=== PATIENT | female | born 1945 | race Caucasian/White ===

== ENCOUNTER 2023-06-30 12:15 | Inpatient (IN) | payer MEDICARE, SELFPAY ==
[2023-06-30 12:15] VITALS: BP 166/78; PULSE 104; RESP 16; TEMP 36.2; O2SAT 96; BMI 26.4
[2023-06-30 12:20] VITALS: BP 166/78; PULSE 98; RESP 20; TEMP 36.2; O2SAT 97
--- NOTE | 2023-06-30 13:17 | EKG12_ITS ---
Test Reason : WEAKNESS Blood Pressure : / mmHG Vent. Rate : 098 BPM Atrial Rate : 000 BPM P-R Int : 000 ms QRS Dur : 074 ms QT Int : 346 ms P-R-T Axes : 000 002 065 degrees QTc Int : 441 ms Atrial fibrillation with premature ventricular or aberrantly conducted complexes Abnormal ECG Confirmed by SUNDEEP CALDERON, LAYO ([id number]), non linear editor WILLIAM ASENCIO ([id number]) on 07/01/2023 11:01:14 AM Referred By: Confirmed By:LAYO URBANO MD
--- NOTE | 2023-06-30 13:18 | EX.ED.DYSGE1 ---
HPI History of Present Illness Chief Complaint: Weakness Detail of Chief Complaint: Generalized weakness. Unable to stand. 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 Dementia, hypertension, chronic kidney disease. Patient's has passed. She lives at home with her son and [id number]. She normally can care for herself. Today she was in the bathroom sat on the toilet and was too weak to stand. He had to help her off the toilet said she had some confusion and they called the squad to bring her in. No recent illness. No recent falls or trauma. Prior similar symptoms: No Recent Illness/Hospitalization: No PFSH PFSH Medical History Aneurysm CHF (congestive heart failure) Dementia HTN (hypertension) Kidney failure Home Medications Cholestrol Med 03/10/15 [History Last Taken Unknown] Gout Med 03/10/15 [History Last Taken Unknown] Lasix 03/10/15 [History Last Taken Unknown] Lisinopril 03/10/15 [History Last Taken Unknown] Allergy/AdvReac Type Severity Reaction Status Date / Time No Known Allergies Allergy Verified 03/10/15 21:30 Surgical History History of hysterectomy Social History Smoking Status: Never smoker ROS ROS ED ROS Narrative Denies recent illness. Fever. No dysuria. Review of Systems ROS Unobtainable: Denies due to encephalopathy Constitutional Constitutional ED: Denies chills or fever(s) Eyes Eyes: Denies blurry vision ENT ENT ED: Denies ear pain Cardiovascular Cardiovascular: Denies chest pain or palpitations Respiratory/Chest Respiratory/Chest: Denies cough or dyspnea Gastrointestinal Gastrointestinal: Denies abdominal pain Genitourinary Genitourinary ED: Denies dysuria or hematuria Musculoskeletal Musculoskeletal: Denies arthralgias Integumentary Denies abscess Neurologic Neurologic: Denies headache(s) Psychiatric Psychiatric: Denies anxiety or depression Endocrine Endocrinology: Denies cold intolerance Hematologic/Lymphatic Hematologic/Lymphatic: Reports none Allergic/Immunologic Allergic/Immunologic ED: Denies mouth swelling or tongue swelling EXAM Physical Exam Narrative Exam Narrative: 8-year-old female no acute distress. Vital signs stable afebrile. Does not look septic or toxic. Son at bedside. Pulse ox 96% on room air no hypoxia. H EENT exam atraumatic. Pupils round reactive light. Normal speech. No facial droop. Dry mucous membranes. Neck nontender. Lungs clear to auscultation. Heart regular rhythm rate about 100. 4/6 systolic ejection murmur. Chest wall nontender. Abdomen soft nontender. No peritoneal signs. Moving all 4 extremities. Nontender. No edema. Neurologically she is awake and alert. Answering questions and following commands. Const Vital Signs: 06/30/23 12:15 06/30/23 12:20 06/30/23 12:21 Temperature 97.2 F L 97.2 F L Temperature Source Temporal Temporal Pulse Rate 104 H 98 Respiratory Rate 16 20 H Respiratory Effort Normal Non-Labored Respiratory Pattern Normal Blood Pressure 166/78 H 166/78 H Blood Pressure Mean 107 107 Pulse Ox 96 97 Oxygen Delivery Method Room Air Room Air 06/30/23 13:52 06/30/23 15:30 Temperature 97.5 F L Temperature Source Temporal Pulse Rate 74 94 Respiratory Rate 16 21 H Respiratory Effort Respiratory Pattern Blood Pressure 151/78 H 148/77 H Blood Pressure Mean 102 97 Pulse Ox 98 96 Oxygen Delivery Method Room Air Positive well nourished and well developed; Negative for cachectic, contractures or unkempt General Appearance ED: well developed and NAD; Negative for unkempt, cachectic, contractures, cyanotic, diaphoretic or pallor Nutritional Appearance: Negative for cachectic HEENT Reports dry mucous membranes; Denies moist mucous membranes Negative for trauma or tenderness Mouth ED: Yes dry mucous membranes Mouth: dry mucous membranes Eyes EOMs intact bilaterally General Eye ED: Negative for pale conjunctiva or scleral icterus Neck no lymphadenopathy, supple and no JVD General: Negative for tenderness Lymph Lymphatic: Negative for other Chest Wall inspection of chest normal and palpation of chest normal Chest: Negative for other Resp normal respiratory effort and clear to auscultation bilaterally Effort and Inspection: Negative for retractions Auscultation: Negative for rales, rhonchi or wheezes Cardio regular rhythm, S1 normal heart sound and S2 normal heart sound; Negative for no murmurs Rate: other Other Details: 4/6 systolic ejection murmur. GI normal to inspection, nondistended, normoactive bowel sounds, non-tender and non-distended Auscultation: normoactive bowel sounds Palpation: soft; Negative for tender or guarding Back/Spine no CVA tenderness General Back: Negative for CVA tenderness Cervical Spine: Negative for cervical spine tenderness Thoracic Spine / Upper Back: Negative for thoracic spinal tenderness or paraspinal muscle tenderness Extremity normal to inspection General Extremety ED: Negative for edema or tenderness General Extremity: Negative for edema Neuro oriented x3 and CN's II-XII intact bilaterally Sensorium / Orientation: alert; Negative for orientation impaired, lethargic or stuporous Motor Exam: strength 5/5 throughout Psych mental status grossly normal Appearance: Negative for unkempt Attitude: No agitated Mood & Affect: Negative for depressed, anxious or tearful Skin no rashes or lesions noted and no wounds General Skin Exam: Negative for elasticity normal, jaundice or pallor Lesions: No lesion noted Rashes: No rashes noted Trauma: Negative for abrasion Wounds: Negative for wounds noted MDM MDM MDM Narrative Medical decision making narrative: 78-year-old female with generalized weakness. Benign exam other than a what I suspect is a chronic heart murmur. Differential would include dehydration, infectious etiology such as pneumonia or UTI. Anemia etc. Screening labs and urinalysis will be obtained. Sinus concern for an intracranial bleed due to the prior history of ruptured aneurysm. Clinically I think it is very unlikely but I am obtaining CAT scan of the head. She has no chronic signs of stroke with no significant motor loss. Exam unchanged. Patient is too weak to ambulate. She may or may not have a UTI. Urine and blood cultures were sent. She has received a half a liter so far fluid. She also has a pancytopenia our most recent labs are 79 years old. CAT scan has been done I do not see any type of bleed. She does have prior coils from her aneurysms. Awaiting the formal radiology interpretation. I have already spoken to the hospitalist she will be a admission to medical floors. She was already started on IV Rocephin for her possible UTI. Discussed test results with family at bedside. They are comfortable with the plan. History & Record Review Discussion w/independent historian: Patient and Family Additional record(s) reviewed:: Prior inpatient record, Prior outpatient record, Prior ED visit and Prior labs Lab Data Attestation: I reviewed the patient's lab results. Lab results narrative: Count 2.2. H&H 9.3 and 31.6. Platelets 79,000. Consistent with a pancytopenia. Electrolytes show a gap of 7 BUN and creatinine are 36 and 1.6. Labs: Laboratory Results - last 24 hr 06/30/23 06/30/23 12:27 14:20 WBC 2.2 L RBC 3.70 L Hgb 9.3 L Hct 31.6 L MCV 85.4 MCH 25.1 L MCHC 29.4 L RDW Std Deviation 58.3 H RDW Coeff of Vahid 18.6 H Plt Count 79 L MPV 10.2 Immature Gran % (Auto) 0.500 Neut % (Auto) 66.1 Lymph % (Auto) 12.5 L [place] % (Auto) 20.4 H Eos % (Auto) 0.0 Baso % (Auto) 0.5 Absolute Neuts (auto) 1.4 L Absolute Lymphs (auto) 0.27 L Nucleated RBC % 0 Diff Path Review May foll Platelet Estimate MOD DEC Sodium 137 Potassium 3.9 Chloride 105 Carbon Dioxide 25.0 Anion Gap 7 BUN 36 H Creatinine 1.60 H Estim Creat Clear Calc 26.50 Est GFR (MDRD) Af Amer 40 L Est GFR (MDRD) Non-Af 33 L BUN/Creatinine Ratio 22.5 H Glucose 117 H Calcium 9.1 Urine Color Yellow Urine Clarity Sl. Cloudy Urine pH 7.0 Ur Specific [place] 1.005 Urine Protein 100 H Urine Glucose (UA) Normal Urine Ketones Negative Urine Occult Blood 250 H Urine Nitrite Positive H Urine Bilirubin Negative Urine Urobilinogen Normal Ur Leukocyte Esterase 500 H Urine RBC 0 SEEN Urine WBC 0-5 SEEN Ur Squamous Epith Cells 0-5 SEEN Urine Bacteria 1+ Urine Mucus 0 SEEN Radiography Diagnostic Testing: Clinical Impression(s) from Imaging Studies Chest X-Ray 06/30/23 14:00 IMPRESSION: Normal x-ray examination of the chest. Electronically Signed: Olayinka Moreira MD at 14:42 EDT , Discharge Plan Triage Chief Complaint: Weakness ED Provider: Kel Crooks Dx/Rx/DC Orders Clinical Impression: History of intracranial hemorrhage, Generalized weakness, Dementia, Pancytopenia, Acute UTI, Unable to ambulate Prescriptions: No Action Cholestrol Med Gout Med Lasix Lisinopril Primary Care Provider: Zeina Schmidt Referrals: Care Physician,No Primary [Non-Staff] - Disposition Disposition: Acute Care [facility]
[2023-06-30 13:44] LABS: Absolute Lymphocyte Count 0.27 X10^3/uL (0.83-4.51); Absolute Neutrophil Count 1.4 X10^3/uL (2.0-7.7); Basophil# 0.01 X10^3/uL; Basophil% 0.5 % (0-1); Hematocrit 31.6 % (37-47); Hemoglobin 9.3 g/dL (12.0-15.0); Lymphocyte # 0.27 X10^3/ul (0.83-4.51); Lymphocyte % 12.5 % (19-41); Mean Corp Hgb Conc 29.4 g/dL (32-36); Mean Corpuscular Hgb 25.1 pg (27.0-32.0); Mean Corpuscular Volume 85.4 fL (81-99); Mean Platelet Vol. 10.2 fl (6.2-12.0); Monocyte# 0.44 X10^3/uL; Monocyte% 20.4 % (0-10); NRBC Flagged by Analyzer 0 % (0-5); Neutrophil # 1.43 X10^3/uL (2.7-7.7); Neutrophil % 66.1 % (47-70); POSITIVE COUNT YES; POSITIVE DIFFERENTIAL YES; Platelet Count 79 K/mm3 (150-450); RBC Distribution Width CV 18.6 % (11.6-14.6); RBC Distribution Width SD 58.3 fl (35.1-43.9); White Blood Count 2.2 K/mm3 (4.4-11.0)
[2023-06-30 13:47] LABS: Differential Indicated SCAN CRITERIA MET
[2023-06-30 13:52] VITALS: BP 151/78; PULSE 74; RESP 16; TEMP 36.4; O2SAT 98
[2023-06-30] MEDS: 0.9% Normal Saline (1000mL) 1,000 ML 1000 ML IV (13:53)
[2023-06-30 13:54] LABS: Anion Gap 7 (5-15); BUN 36 mg/dL (7-18); BUN/Creat Ratio 22.5 RATIO (10-20); Calcium,Total 9.1 mg/dL (8.5-10.1); Chloride 105 mmol/L (98-107); EST Glomerular Filtration Rate 33 mL/min (>60); Est Glom Filt Rate - Afr Amer 40 mL/min (>60); Glucose 117 mg/dL (74-106); Potassium 3.9 mmol/L (3.5-5.1); Sodium Level 137 mmol/L (136-145)
--- NOTE | 2023-06-30 14:00 | RAD_ITS ---
STUDY: X-RAY CHEST REASON FOR EXAM: Female, 78 years old. weakness TECHNIQUE: Single AP portable view of the chest. COMPARISON: None. FINDINGS: The lungs are clear and expanded. There is no demonstrated pleural abnormality. Normal size heart. Normal mediastinum and segundo. Normal visualized pulmonary arteries. Normal visualized aortic arch and descending thoracic aorta. Normal visualized thoracic spine. Normal visualized ribs, clavicles, and shoulders. There is no demonstrated abnormality of the visualized soft tissue structures of the upper abdomen. RAD/Chest 1 View (Portable) IMPRESSION: Normal x-ray examination of the chest. Electronically Signed: Olayinka Moreira MD at 14:42 EDT ,
[2023-06-30 14:12] LABS: Platelet Estimate MOD DEC (ADEQ)
[2023-06-30 14:26] LABS: Mucous, Urine 0 SEEN /hpf (<or=2+); Red Blood Cells-Urine 0 SEEN /hpf (0-5)
[2023-06-30 14:27] LABS: Color, Urine Yellow (Yellow); Glucose, Dipstick Normal (Normal); Ketone-Dipstick Negative (Negative); Leukocyte Esterase-Dipstick 500 /ul (Negative); Nitrite-Dipstick Positive (Negative); Occult Blood-Urine 250 /ul (Negative); Protein-Dipstick 100 mg/dl (Negative); Specific Gravity, Urine 1.005 (1.002-1.030); Urine Bilirubin Dipstick Negative (Negative); Urine Clarity Sl. Cloudy (Clear); Urine Urobilinogen Normal (Normal)
[2023-06-30 14:37] LABS: Bacteria 1+ /hpf (None Seen); Squamous Epithelial Cells - UA 0-5 SEEN /hpf (5-10); White Blood Cells 0-5 SEEN /hpf (0-5)
[2023-06-30 15:30] VITALS: BP 148/77; PULSE 94; RESP 21; O2SAT 96
--- NOTE | 2023-06-30 15:56 | CT_ITS ---
STUDY: CT BRAIN WITHOUT CONTRAST REASON FOR EXAM: Female, 78 years old. confusion RADIATION DOSAGE (If Supplied By Facility): CTDIvol = ( 44.99 ) mGy, DLP = ( 846.73 ) mGycm TECHNIQUE: Transaxial CT imaging of the brain was performed without administration of intravenous contrast material. Individualized dose optimization techniques were used for this CT. COMPARISON: 03/10/2015. FINDINGS: Normal soft tissue structures. Normal calvarium. There is mild to moderate cerebral atrophy with widening of the extra-axial spaces and ventricular dilatation. There are areas of decreased attenuation within the white matter tracts of the supratentorial brain, consistent with microvascular disease changes. Normal basal ganglia and thalami. Normal brainstem. Normal cerebellum. Postoperative changes with aneurysmal clipping along the right side of the [place]. There is no intracranial hemorrhage. There are no findings of an acute ischemic infarction. Mucosal thickening involving the left maxillary sinus versus mucous retention cyst. Remainder of the paranasal sinuses are clear. CT/Brain/Head without Contrast IMPRESSION: Chronic changes as described. No acute intracranial hemorrhage or space-occupying lesion. Electronically Signed: Juliana Hu MD at 16:29 EDT ,
--- NOTE | 2023-06-30 16:20 | US_ITS ---
STUDY: RENAL ULTRASOUND - COMPLETE REASON FOR EXAM: Female, 78 years old. UTI/CKD TECHNIQUE: Ultrasound evaluation of the kidneys was performed with real-time and static [place]-scale imaging. COMPARISON: None. FINDINGS: RIGHT KIDNEY: Normal location of the right kidney, which is normal in size. The right kidney measures 9.5 cm. Increased echogenicity the renal cortex consistent with advanced age The renal cortex measures 1.2 cm. There is no right renal mass or cyst. There are no right renal calculi. There is no right hydronephrosis. DISTAL RIGHT URETER: There is non-visualization of the distal right ureter. There is no demonstrated right ureterovesical junction calculus. There is a visualized right ureteral jet. LEFT KIDNEY: Normal location of the left kidney, which is normal in size. The left kidney measures 9.2 cm. Increased echogenicity renal cortex consistent with the advanced age. The renal cortex measures 1.0 cm. 1.5 cm parapelvic cyst left kidney. There are no left renal calculi. There is no left hydronephrosis. DISTAL LEFT URETER: There is non-visualization of the distal left ureter. There is no demonstrated left ureterovesical junction calculus. There is a visualized left ureteral jet. BLADDER: The distended urinary bladder has a volume of 192 ml. The empty urinary bladder has a volume of ml. There is a normal wall thickness of the distended urinary bladder. There is no demonstrated mass within the urinary bladder. Some debris in the base of the bladder. US/Kidney and Bladder IMPRESSION: No hydronephrosis to suggest obstruction. Electronically Signed: Olayinka Moreira MD at 19:09 EDT ,
--- NOTE | 2023-06-30 16:21 | HP.PCM.HOS_ITS ---
HPI - General General Date of Admission: 06/30/23 Date of Service: 06/30/23 Chief Complaint: Generalized Weakness/Debility HPI Narrative JUAREZ CASTILLO, is a 78 F who presented the emergency department at [facility] on 06/30/2023 with generalized weakness and the inability to stand after sitting on the toilet. [facility] Medical History (Updated 06/30/23 @ 16:[address] Leatha Jerry DO) Aneurysm CHF (congestive heart failure) Dementia HTN (hypertension) Kidney failure Stage 3b chronic kidney disease Home Medications Cholestrol Med 03/10/15 [History Last Taken Unknown] Gout Med 03/10/15 [History Last Taken Unknown] Lasix 03/10/15 [History Last Taken Unknown] Lisinopril 03/10/15 [History Last Taken Unknown] Allergy/AdvReac Type Severity Reaction Status Date / Time No Known Allergies Allergy Verified 03/10/15 21:30 Surgical History History of hysterectomy Social History Smoking Status: Never smoker Vital Signs Vital Signs Vital Signs: 06/30/23 12:15 06/30/23 12:20 06/30/23 12:21 Temperature 97.2 F L 97.2 F L Temperature Source Temporal Temporal Pulse Rate 104 H 98 Respiratory Rate 16 20 H Respiratory Effort Normal Non-Labored Respiratory Pattern Normal Blood Pressure 166/78 H 166/78 H Blood Pressure Mean 107 107 Pulse Ox 96 97 Oxygen Delivery Method Room Air Room Air 06/30/23 13:52 06/30/23 15:30 Temperature 97.5 F L Temperature Source Temporal Pulse Rate 74 94 Respiratory Rate 16 21 H Respiratory Effort Respiratory Pattern Blood Pressure 151/78 H 148/77 H Blood Pressure Mean 102 97 Pulse Ox 98 96 Oxygen Delivery Method Room Air Weight Weight: 71.9 kg Body Mass Index (BMI) 26.4 Results Lab / Micro Data 06/30/23 12:27 06/30/23 12:27 Labs: Laboratory Results - last 24 hr 06/30/23 12:27: WBC 2.2 L, RBC 3.70 L, Hgb 9.3 L, Hct 31.6 L, MCV 85.4, MCH 25.1 L, MCHC 29.4 L, RDW Std Deviation 58.3 H, RDW Coeff of Vahid 18.6 H, Plt Count 79 L, MPV 10.2, Immature Gran % (Auto) 0.500, Neut % (Auto) 66.1, Lymph % (Auto) 12.5 L, Lane % (Auto) 20.4 H, Eos % (Auto) 0.0, Baso % (Auto) 0.5, Absolute Neuts (auto) 1.4 L, Absolute Lymphs (auto) 0.27 L, Nucleated RBC % 0, Diff Path Review January, Platelet Estimate MOD DEC, Sodium 137, Potassium 3.9, Chloride 105, Carbon Dioxide 25.0, Anion Gap 7, BUN 36 H, Creatinine 1.60 H, Estim Creat Clear Calc 26.50, Est GFR (MDRD) Af Amer 40 L, Est GFR (MDRD) Non-Af 33 L, BUN/Creatinine Ratio 22.5 H, Glucose 117 H, Calcium 9.1 06/30/23 14:20: Urine Color Yellow, Urine Clarity Sl. Cloudy, Urine pH 7.0, Ur Specific [place] 1.005, Urine Protein 100 H, Urine Glucose (UA) Normal, Urine Ketones Negative, Urine Occult Blood 250 H, Urine Nitrite Positive H, Urine Bilirubin Negative, Urine Urobilinogen Normal, Ur Leukocyte Esterase 500 H, Urine RBC 0 SEEN, Urine WBC 0-5 SEEN, Ur Squamous Epith Cells 0-5 SEEN, Urine Bacteria 1+, Urine Mucus 0 SEEN Micro: Microbiology 06/30/23 12:27 Nasal Secretion SARS-CoV-2 & FLU Antigen (Rapid) - Final Radiology Impression Chest X-Ray 06/30/23 14:00 IMPRESSION: Normal x-ray examination of the chest. Electronically Signed: Olayinka Moreira MD at 14:42 EDT , Assessment & Plan Assessment/Plan (1) UTI (urinary tract infection): (2) Generalized weakness: (3) Pancytopenia: (4) Toxic metabolic encephalopathy: Charges/Coding Visit Charges Inpatient E&M: 49918 Init Hosp L2
--- NOTE | 2023-06-30 16:21 | PCM.HP.STD ---
HPI - General General Date of Admission: 06/30/23 Date of Service: 06/30/23 Chief Complaint: Generalized Weakness/Debility HPI Narrative JUAREZ CASTILLO, is a 78 F who presented the emergency department at [facility] on 06/30/2023 with generalized weakness and the inability to stand after sitting on the toilet. Family had left by the time I evaluated her in the emergency department however they reported to the emergency department physician that she went to the bathroom and sat on the toilet but then was too weak to stand. Her son had to help her get off the toilet which is very atypical for her as typically she can basically care for herself. They also noted she was having some more confusion than her baseline so they called the squad to bring her in. They denied her having any recent illnesses sick contacts or falls or trauma. Evidently her recently. She tells me it was May 15 but was not able to remember the year and she is currently living with her son and [id number]. She herself denied any recent illnesses and stated she felt well until last evening when she began to feel weak. Other than that she was not able to give me much information however she denies any upper respiratory symptoms, cough, fever, or chills. Vital signs on presentation showed temperature of 97.2, initial heart rate was 104 but heart rate came down to upper 90s with some IV fluids, blood pressure was 166/78, respiratory rate was 16 and oxygen saturations were 96 to 98% on room air. CBC showed pancytopenia with a white count of 2.2, hemoglobin of 9.3 and a platelet count of 79,000. Her white count had not been abnormal on her most recent CBC at [facility] and was 4.2 at that time however she does have chronic anemia with a stable hemoglobin at 9.3. Her last platelet count was 153,000 however there is documented thrombocytopenia in her chart previously. The differential shows a monocytosis. Her chemistry panel was overall unremarkable. Electrolytes were normal. Her BUN was 36 and her serum creatinine was 1.6 however on previous lab work it appears that her BUN was 37 and serum creatinine is 1.67 so she is at her baseline. Lab work was otherwise unremarkable. Her UA is consistent with infection showing some protein, occult blood, nitrites, leuk esterase, and 1+ bacteria. There were interestingly no white cells seen at this time however the patient was having symptoms of frequency. Her EKG was unremarkable showing normal sinus rhythm with normal intervals. Chest x-ray was unremarkable. CT of the brain showed chronic changes from previous subarachnoid hemorrhage and intervention but with no acute intracranial hemorrhage or space-occupying lesion. In the emergency department she was treated with IV fluids and given IV ceftriaxone. Given her weakness and mild confusion at home request for admission was made. [facility] Medical History (Updated 06/30/23 @ 17:[address] Leatha Jerry DO) Aneurysm CHF (congestive heart failure) Dementia History of tobacco abuse History of uterine cancer HTN (hypertension) Hypothyroidism Iron deficiency anemia Seizures Stage 3b chronic kidney disease Subarachnoid hemorrhage Thrombocytopenia Urinary incontinence Vitamin D deficiency Home Medications Cholestrol Med 03/10/15 [History Last Taken Unknown] Gout Med 03/10/15 [History Last Taken Unknown] Lasix 03/10/15 [History Last Taken Unknown] Lisinopril 03/10/15 [History Last Taken Unknown] Allergy/AdvReac Type Severity Reaction Status Date / Time No Known Allergies Allergy Verified 03/10/15 21:30 Family History (Updated 06/30/23 @ 17:[address] Leatha Jerry DO) Other Cancer Diabetes Heart disease Surgical History History of hysterectomy Social History (Updated 06/30/23 @ 17:[address] Leatha Jerry DO) household members: family housing: house Smoking Status: Former smoker alcohol intake: never substance use type: does not use ROS Constitutional Constitutional: Reports fatigue and weakness; Denies anorexia, change in weight, chills, fever(s), malaise, night sweats or other Eyes Eyes: Denies blurry vision, change in eye color, change in vision, discharge from eye(s), double vision, erythema, eye pain, loss of vision or other ENT HEENT: Denies abnormal hearing, dysphagia, ear pain, epistaxis, headache(s), hearing loss, nasal congestion, nasal discharge, post nasal drip, sinus pressure, sore throat or other Cardiovascular Cardiovascular: Denies chest pain, claudication, dyspnea on exertion, edema, lightheadedness, orthopnea, palpitations, paroxysmal nocturnal dyspnea, rapid heart rate, syncope or other Respiratory/Chest Respiratory/Chest: Denies cough, dyspnea, excessive phlegm production, hemoptysis, productive cough, shortness of breath at rest, shortness of breath with exertion, wheezing or other Gastrointestinal Gastrointestinal: Denies abdominal pain, coffee ground emesis, constipation, diarrhea, dyspepsia, hematemesis, hematochezia, loose stools, melena, nausea, vomiting or other Genitourinary Genitourinary: Reports urinary frequency and urinary incontinence; Denies burning urination, difficulty urinating, dysuria, hematuria, nocturia, urinary hesitancy, urinary urgency or other Musculoskeletal Musculoskeletal: Denies arthralgias, back pain, joint pain, joint stiffness, joint swelling, myalgias, neck pain or other Neurologic Neurologic: Reports abnormal gait, confusion and other Details: Baseline memory impairment ; Denies abnormal speech, disequilibrium, dizziness, focal weakness, headache(s), numbness, paresthesias, seizure-like activity, seizures, syncope, tingling or tremor(s) Psychiatric Psychiatric: Denies anxiety, depression, homicidal ideation, suicidal ideation or other Endocrine Endocrinology: Denies change in body appearance, cold intolerance, excessive sweating, heat intolerance, polydipsia, polyuria or other Hematologic/Lymphatic Hematologic/Lymphatic: Denies anemia, easy bleeding, easy bruising, lymphadenopathy or other Allergic/Immunologic Allergic/Immunologic: Denies rhinitis, hives, eczemia, asthma or other Vital Signs Vital Signs Vital Signs: 06/30/23 12:15 06/30/23 12:20 06/30/23 12:21 Temperature 97.2 F L 97.2 F L Temperature Source Temporal Temporal Pulse Rate 104 H 98 Respiratory Rate 16 20 H Respiratory Effort Normal Non-Labored Respiratory Pattern Normal Blood Pressure 166/78 H 166/78 H Blood Pressure Mean 107 107 Pulse Ox 96 97 Oxygen Delivery Method Room Air Room Air 06/30/23 13:52 06/30/23 15:30 Temperature 97.5 F L Temperature Source Temporal Pulse Rate 74 94 Respiratory Rate 16 21 H Respiratory Effort Respiratory Pattern Blood Pressure 151/78 H 148/77 H Blood Pressure Mean 102 97 Pulse Ox 98 96 Oxygen Delivery Method Room Air Weight Weight: 71.9 kg Body Mass Index (BMI) 26.4 Physical Exam Const alert, no apparent distress, average body habitus and well nourished; Negative for healthy appearing Constitutional Narrative: Very pleasant, elderly, white female, appears older than stated age, sitting up in bed, appears comfortable and nontoxic ,Oriented to self but not place, month but not year General Appearance: cooperative HEENT normocephalic, head/scalp atraumatic and hearing grossly normal bilaterally; Negative for moist oral mucous membranes or dentition normal HEENT Narrative: Dentition is poor, mucous membranes are dry, Mallampati is 2, no thrush Eyes PERRL, EOMs intact bilaterally and conjunctivae normal Eyes Narrative: Mild conjunctival pallor bilaterally, no scleral icterus Neck no lymphadenopathy and supple Neck Narrative: Trachea midline, cardiac murmur that radiates to bilateral carotids Resp normal respiratory effort, no retractions, no use of accessory muscles and clear to auscultation bilaterally Resp Narrative: Diffusely diminished but clear Auscultation: Negative for rales, rhonchi or wheezes Cardio regular rate, regular rhythm, S1 normal heart sound, no rub, no gallops and no clicks; Negative for S2 normal heart sound or no murmurs Cardio Narrative: 3 out of 6 systolic murmur with soft S2 GI normal to inspection, nondistended, normoactive bowel sounds, soft to palpation and non-tender Extremity no clubbing, cyanosis or edema Extremity Narrative: Significant bilateral lower extremity onychomycosis with poor nail care Skin Skin Narrative: Feet and legs are extremely dry Neuro CN's II-XII intact bilaterally, moves all extremities and no focal motor deficits Neuro Narrative: Generalized weakness noted-proximal greater than distal but no focal deficits Sensorium / Orientation: awake, alert and oriented to person Speech: speech normal Psych affect normal Psych Narrative: Eye contact is good, patient interacts appropriately and is very pleasant Results Lab / Micro Data 06/30/23 12:27 06/30/23 12:27 Labs: Laboratory Results - last 24 hr 06/30/23 12:27: WBC 2.2 L, RBC 3.70 L, Hgb 9.3 L, Hct 31.6 L, MCV 85.4, MCH 25.1 L, MCHC 29.4 L, RDW Std Deviation 58.3 H, RDW Coeff of Vahid 18.6 H, Plt Count 79 L, MPV 10.2, Immature Gran % (Auto) 0.500, Neut % (Auto) 66.1, Lymph % (Auto) 12.5 L, [place] % (Auto) 20.4 H, Eos % (Auto) 0.0, Baso % (Auto) 0.5, Absolute Neuts (auto) 1.4 L, Absolute Lymphs (auto) 0.27 L, Nucleated RBC % 0, Diff Path Review May foll, Platelet Estimate MOD DEC, Sodium 137, Potassium 3.9, Chloride 105, Carbon Dioxide 25.0, Anion Gap 7, BUN 36 H, Creatinine 1.60 H, Estim Creat Clear Calc 26.50, Est GFR (MDRD) Af Amer 40 L, Est GFR (MDRD) Non-Af 33 L, BUN/Creatinine Ratio 22.5 H, Glucose 117 H, Calcium 9.1 06/30/23 14:20: Urine Color Yellow, Urine Clarity Sl. Cloudy, Urine pH 7.0, Ur Specific [place] 1.005, Urine Protein 100 H, Urine Glucose (UA) Normal, Urine Ketones Negative, Urine Occult Blood 250 H, Urine Nitrite Positive H, Urine Bilirubin Negative, Urine Urobilinogen Normal, Ur Leukocyte Esterase 500 H, Urine RBC 0 SEEN, Urine WBC 0-5 SEEN, Ur Squamous Epith Cells 0-5 SEEN, Urine Bacteria 1+, Urine Mucus 0 SEEN Micro: Microbiology 06/30/23 12:27 Nasal Secretion SARS-CoV-2 & FLU Antigen (Rapid) - Final Radiology Impression Chest X-Ray 06/30/23 14:00 IMPRESSION: Normal x-ray examination of the chest. Electronically Signed: Olayinka Moreira MD at 14:42 EDT Reading Location ID and State: [address] [place] [address] Tel , Service support , Assessment & Plan Assessment/Plan (1) UTI (urinary tract infection): (2) Generalized weakness: (3) Pancytopenia: (4) Toxic metabolic encephalopathy: PLAN: Plan Generalized weakness/debility -Etiology is currently unclear however I do suspect it may be related to possible UTI -Treat urinary tract infection -PT/OT consultation Urinary tract infection -UA is consistent with UTI -Patient is having urinary frequency without dysuria -Continue ceftriaxone 1 g daily -Urine culture is pending Pancytopenia -No previous documentation in [facility] that I can identify however it does look like she has chronic anemia and thrombocytopenia -Most recent CBC from a few months ago had her with a hemoglobin of 9.3 and a platelet count of 153,000 with a normal white count at 4.2 -Leukopenia could be related to infection -Differential does show a monocytosis -Repeat CBC in a.m. -We will check coags with regards to platelet count -Check iron studies and stool guaiac with regards to anemia -Patient had been on home iron previously from the note I found back in November 2022 we will hold for now Dementia with superimposed toxic/metabolic encephalopathy -Per family patient is a little bit off with regards to her mental status -Was oriented to self but not place, month but not year -We will treat underlying suspected UTI and continue to monitor -CT of the brain is unremarkable for any acute findings Hypothyroidism -Check TSH -There is history of noncompliance with Synthroid -Continue home Synthroid 25 mcg daily Hypertension -Hold home Lasix as patient does clinically appear somewhat dry -Continue amlodipine 5 mg daily -Continue losartan 50 mg daily CKD stage IIIb -Baseline serum creatinine appears to be between 1.6 and 1.7 -Serum creatinine on presentation was 1.6 -Clinically patient appears slightly dry so we will hydrate some -Hold home Lasix -Documented from previous note and PCP chart that her most recent echo showed an EF of 65% Hyperlipidemia -Continue home Lipitor Urinary incontinence -Continue home Ditropan 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 twice daily -We will continue Vimpat until able to ascertain correct home med reconciliation History of uterine cancer -No acute issues identified -Patient still has cervix History of tobacco abuse -Remote DVT prophylaxis -Subcu heparin twice daily CODE STATUS -Patient with dementia at baseline unable to fully question her with regards to this and no family at the bedside -We will remain full code but need to clarify if possible Charges/Coding Visit Charges Inpatient E&M: 66570 Init Hosp L2
[2023-06-30] MEDS: Ceftriaxone 1 GM/50 ML BAG IV (16:46)
[2023-06-30 16:52] VITALS: BP 143/69; PULSE 99; RESP 20; TEMP 37.5; O2SAT 97
[2023-06-30 16:53] LABS: Immature Platelet Fraction 3.7 % (1.0-7.9); Platelet Count 80 K/mm3 (150-450); RET-HE 26.1 pg (30-35); Reticulocyte Count 3.64 % (0.5-1.5)
[2023-06-30 16:55] LABS: International Normalized Ratio 1.1; Prothrombin Time (Protime)PT. 14.6 SECONDS (11.7-14.9)
[2023-06-30 17:10] LABS: Ferritin 129 ng/mL (8-252); Iron 16 ug/dL (50-170); Iron Binding Capacity,Total 226 ug/dL (250-450); PERCENT IRON SATURATION 7.1 % (15.0-55.0)
[2023-06-30 17:36] VITALS: BMI 25.7
[2023-06-30] MEDS: 0.9% Normal Saline (1000mL) 1,000 ML 70 ML IV (18:52)
[2023-06-30 20:33] VITALS: BP 145/73; PULSE 95; RESP 16; TEMP 37.3; O2SAT 99
[2023-06-30] MEDS: Petrolatum 33% Tube 1 APPLIC TOPICAL (22:59)
[2023-06-30] MEDS: Heparin Injection (Vial) 5,000 UNIT/ML VIAL 5000 UNIT SC (23:01)
[2023-06-30] MEDS: 0.9% Saline Lock 10 ML Syringe IV (23:01)
[2023-06-30] MEDS: Oxybutynin 5 MG Tablet PO (23:02)
[2023-06-30] MEDS: Atorvastatin Calcium 40 MG Tablet PO (23:02)
[2023-06-30] MEDS: Lacosamide 100 MG Tablet 200 MG PO (23:06)
[2023-07-01] VITALS (7 sets, daily range): BP systolic 121–168; BP diastolic 59–80; PULSE 73–82; RESP 16–20; TEMP 36.2–37.2; O2SAT 97–100
[2023-07-01] MEDS: Levothyroxine 25 MCG TABLET PO (06:13)
[2023-07-01 07:01] LABS: Absolute Lymphocyte Count 0.63 X10^3/uL (0.83-4.51); Absolute Neutrophil Count 1.2 X10^3/uL (2.0-7.7); Hematocrit 27.5 % (37-47); Hemoglobin 8.2 g/dL (12.0-15.0); Lymphocyte # 0.63 X10^3/ul (0.83-4.51); Lymphocyte % 26.1 % (19-41); Mean Corp Hgb Conc 29.8 g/dL (32-36); Mean Corpuscular Hgb 25.5 pg (27.0-32.0); Mean Corpuscular Volume 85.7 fL (81-99); Mean Platelet Vol. 8.9 fl (6.2-12.0); Monocyte# 0.62 X10^3/uL; Monocyte% 25.7 % (0-10); NRBC Flagged by Analyzer 0 % (0-5); Neutrophil # 1.15 X10^3/uL (2.7-7.7); Neutrophil % 47.8 % (47-70); POSITIVE COUNT YES; Platelet Count 55 K/mm3 (150-450); RBC Distribution Width CV 18.8 % (11.6-14.6); RBC Distribution Width SD 59.8 fl (35.1-43.9); Red Blood Count 3.21 M/mm3 (4.2-5.4); White Blood Count 2.4 K/mm3 (4.4-11.0)
[2023-07-01 07:41] LABS: ALB/GLOB Ratio 0.6 RATIO (0.9-2.4); AST(SGOT) 102 U/L (15-37); Alanine Aminotransfer ALT/SGPT 26 U/L (13-56); Albumin, Serum 2.7 g/dL (3.2-5.0); Alkaline Phosphatase 69 U/L (45-117); Anion Gap 7 (5-15); BUN 30 mg/dL (7-18); BUN/Creat Ratio 21.9 RATIO (10-20); Chloride 109 mmol/L (98-107); Creatinine, Serum 1.37 mg/dL (0.55-1.02); EST Glomerular Filtration Rate 40 mL/min (>60); Est Glom Filt Rate - Afr Amer 48 mL/min (>60); Estimated Creatinine Clearance 30.94 ml/min; Globulin 4.3 g/dL (2.2-4.2); Glucose 106 mg/dL (74-106); Magnesium 2.2 mg/dL (1.6-2.6); Phosphorus 3.3 mg/dL (2.5-4.9); Potassium 3.8 mmol/L (3.5-5.1); Sodium Level 139 mmol/L (136-145); Thyroid Stim Hormone (TSH) 2.58 uIU/mL (0.358-3.74)
[2023-07-01] MEDS: Ceftriaxone 2 GM in 0.9% Normal Saline (50mL MB+) 50 ML IV (09:20)
[2023-07-01] MEDS: Losartan Potassium 50 MG Tablet PO (09:20)
[2023-07-01] MEDS: Petrolatum 33% Tube 1 APPLIC TOPICAL ×2 (09:21→21:03)
[2023-07-01] MEDS: Oxybutynin 5 MG Tablet PO ×2 (09:21→21:03)
[2023-07-01] MEDS: Ferrous Gluconate 324 MG Tablet PO (09:22)
[2023-07-01] MEDS: Heparin Injection (Vial) 5,000 UNIT/ML VIAL 5000 UNIT SC ×2 (09:22→21:04)
[2023-07-01] MEDS: Furosemide 20 MG Tablet PO (09:22)
[2023-07-01] MEDS: amLODIPine 5 MG Tablet PO (09:22)
[2023-07-01] MEDS: Potassium Chloride Oral Tablet 10 MEQ PO ×2 (09:22→16:23)
[2023-07-01] MEDS: Lacosamide 100 MG Tablet 200 MG PO ×2 (09:28→21:11)
--- NOTE | 2023-07-01 10:53 | PN.HOSP_ITS ---
Reason for Visit Reason for Visit: Generalized weakness and debility Subjective Subjective No issues overnight. Patient states that she ate well this morning and was getting cleaned up currently with director industrial nursing. Denies any complaints at this time. States that she is not urinating as frequently as she had been previously. Objective Data Objective Data Vital Signs: Vital Signs Temp Pulse Resp BP Pulse Ox O2 Del Method 98.1 F 73 16 121/80 H 100 Room Air 07/01/23 09:00 07/01/23 09:00 07/01/23 09:00 07/01/23 09:00 07/01/23 09:00 07/01/23 10:07 Oxygen Delivery Method Room Air Weight: 70.216 kg Body Mass Index (BMI) 25.7 Intake & Output: Intake and Output for Last 24 Hours 06/29/23 06/30/23 07/01/23 23:59 23:59 23:59 Intake Total 1300 / 1300 1350 / 1350 Output Total 200 / 200 Balance 1100 / 1100 1350 / 1350 Lab / Micro Data 07/01/23 06:53 07/01/23 06:53 Labs: Laboratory Results - last 24 hr 06/30/23 12:27: WBC 2.2 L, RBC 3.70 L, Hgb 9.3 L, Hct 31.6 L, MCV 85.4, MCH 25.1 L, MCHC 29.4 L, RDW Std Deviation 58.3 H, RDW Coeff of Vahid 18.6 H, Plt Count 79 L, MPV 10.2, Immature Gran % (Auto) 0.500, Neut % (Auto) 66.1, Lymph % (Auto) 12.5 L, [place] % (Auto) 20.4 H, Eos % (Auto) 0.0, Baso % (Auto) 0.5, Absolute Neuts (auto) 1.4 L, Absolute Lymphs (auto) 0.27 L, Nucleated RBC % 0, Diff Path Review May , Platelet Estimate MOD DEC, Immature Plt Fraction 3.7, Retic Count 3.64 H, Immature Retic Fraction 23.90 H, Retic Hgb Equivalent 26.1 L, PT 14.6, INR 1.1, Sodium 137, Potassium 3.9, Chloride 105, Carbon Dioxide 25.0, Anion Gap 7, BUN 36 H, Creatinine 1.60 H, Estim Creat Clear Calc 26.50, Est GFR (MDRD) Af Amer 40 L, Est GFR (MDRD) Non-Af 33 L, BUN/Creatinine Ratio 22.5 H, Glucose 117 H, Calcium 9.1, Iron 16 L, TIBC 226 L, Iron Saturation 7.1 L, Ferritin 129 06/30/23 14:20: Urine Color Yellow, Urine Clarity Sl. Cloudy, Urine pH 7.0, Ur Specific [place] 1.005, Urine Protein 100 H, Urine Glucose (UA) Normal, Urine Ketones Negative, Urine Occult Blood 250 H, Urine Nitrite Positive H, Urine Bili caruso Negative, Urine Urobilinogen Normal, Ur Leukocyte Esterase 500 H, Urine RBC 0 SEEN, Urine WBC 0-5 SEEN, Ur Squamous Epith Cells 0-5 SEEN, Urine Bacteria 1+, Urine Mucus 0 SEEN 07/01/23 06:53: WBC 2.4 L, RBC 3.21 L, Hgb 8.2 L, Hct 27.5 L, MCV 85.7, MCH 25.5 L, MCHC 29.8 L, RDW Std Deviation 59.8 H, RDW Coeff of Vahid 18.8 H, Plt Count 55 L, MPV 8.9, Immature Gran % (Auto) 0.400, Neut % (Auto) 47.8, Lymph % (Auto) 26.1, [place] % (Auto) 25.7 H, Eos % (Auto) 0.0, Baso % (Auto) 0.0, Absolute Neuts (auto) 1.2 L, Absolute Lymphs (auto) 0.63 L, Nucleated RBC % 0, Sodium 139, Po tassium 3.8, Chloride 109 H, Carbon Dioxide 23.0, Anion Gap 7, BUN 30 H, Creatinine 1.37 H, Estim Creat Clear Calc 30.94, Est GFR (MDRD) Af Amer 48 L, Est GFR (MDRD) Non-Af 40 L, BUN/Creatinine Ratio 21.9 H, Glucose 106, Calcium 8.0 L, Phosphorus 3.3, Magnesium 2.2, Total Bilirubin 0.60, AST 102 H, ALT 26, Alkaline Phosphatase 69, Total Protein 7.0, Albumin 2.7 L, Globulin 4.3 H, Albumin/Globulin Ratio 0.6 L, TSH 2.58 Micro: Microbiology 06/30/23 16:43 Blood Culture (Wb) - Anticubital Left Bacteria Detection (PCR) - Final Strep not Strep pneumo 06/30/23 16:43 Blood Culture (Wb) - Anticubital Left Blood Culture - Preliminary 06/30/23 12:27 Nasal Secretion SARS-CoV-2 & FLU Antigen (Rapid) - Final Radiography Diagnostic Testing: Radiology Impression Chest X-Ray 06/30/23 14:00 IMPRESSION: Normal x-ray examination of the chest. Electronically Signed: Olayinka Moreira MD at 14:42 EDT , Brain CT 06/30/23 15:56 IMPRESSION: Chronic changes as described. No acute intracranial hemorrhage or space-occupying lesion. Electronically Signed: Juliana Hu MD at 16:29 EDT , Renal Ultrasound 06/30/23 16:20 IMPRESSION: No hydronephrosis to suggest obstruction. Electronically Signed: Olayinka Moreira MD at 19:09 EDT , Physical Exam Const alert, no apparent distress, average body habitus and well nourished; Negative for healthy appearing Constitutional Narrative: Very pleasant, elderly, white female, appears older than stated age, sitting up in bed, appears comfortable and nontoxic , oriented to self and place but not month or year, director industrial nursing at the bedside helping her getting a bath General Appearance: cooperative HEENT normocephalic, head/scalp atraumatic, hearing grossly normal bilaterally and moist oral mucous membranes; Negative for dentition normal Eyes PERRL, EOMs intact bilaterally and conjunctivae normal Eyes Narrative: Mild conjunctiva pallor bilaterally, no scleral icterus Neck no lymphadenopathy and supple Neck Narrative: Trachea midline, no thyroid enlargement Resp normal respiratory effort, no retractions, no use of accessory muscles and clear to auscultation bilaterally Resp Narrative: Diffusely diminished but clear Auscultation: Negative for rales, rhonchi or wheezes Cardio regular rate, regular rhythm, S1 normal heart sound, no rub, no gallops and no clicks; Negative for S2 normal heart sound or no murmurs Cardio Narrative: 3 out of 6 systolic murmur with soft S2 GI normal to inspection, nondistended, normoactive bowel sounds, soft to palpation and non-tender Extremity no clubbing, cyanosis or edema Skin Skin Narrative: Severe onychomycosis bilateral lower extremities and skin on legs/feet is exceedingly dry Neuro CN's II-XII intact bilaterally, moves all extremities and no focal motor defic its Neuro Narrative: Generalized weakness noted-proximal greater than distal but no focal deficits Sensorium / Orientation: awake, alert, oriented to person and oriented to place Speech: speech normal Psych affect normal Psych Narrative: Eye contact is good, patient interacts appropriately and is very pleasant Assessment & Plan Assessment/Plan (1) UTI (urinary tract infection): (2) Generalized weakness: (3) Pancytopenia: (4) Toxic metabolic encephalopathy: (5) Bacteremia due to Streptococcus: PLAN: Plan Generalized weakness/debility -Etiology is currently unclear however I do suspect it may be related to possible UTI -Treat urinary tract infection -PT/OT consultation are pending Urinary tract infection -UA is consistent with UTI -Patient is having urinary frequency without dysuria -Continue ceftriaxone 1 g daily -Urine culture is pending Strep bacteremia 2 of 2 blood cultures are positive for strep species but not strep pneumo -We will continue ceftriaxone but increase dose to 2 g daily as patient is clinically improving -Await finalized cultures and sensitivities -Repeat blood cultures tomorrow -Patient has what sounds to be like an aortic stenosis murmur--> we will check echocardiogram given strep bacteremia -Patient does have pretty poor dentition and it may be related to this depending on pathogen identified -Await full identification and sensitivities and will likely consult infectious disease tomorrow Pancytopenia -No previous documentation in [facility] that I can identify however it does look like she has chronic anemia and thrombocytopenia -Most recent CBC from a few months ago had her with a hemoglobin of 9.3 and a platelet count of 153,000 with a normal white count at 4.2 -Leukopenia could be related to infection and is slowly trending up -Differential does show a monocytosis -Repeat CBC in a.m. -Coags are normal -Platelet count is down a bit further today at 55,000--> okay to continue DVT prophylaxis but will hold if drops below 50,000 -Suspect related to acute infection -Iron studies are consistent with anemia of chronic disease -Patient had been on home iron previously from the note I found back in November 2022 we will hold for now Dementia with superimposed toxic/metabolic encephalopathy -Per family patient is a little bit off with regards to her mental status -Was oriented to self but not place, month but not year -We will treat underlying suspected UTI and continue to monitor -CT of the brain is unremarkable for any acute findings Hypothyroidism -TSH is within normal limits -Continue home Synthroid 25 mcg daily Hypertension -We will continue to hold home Lasix for now -Blood pressures appear to be fairly well controlled without diuretic therapy -Continue amlodipine 5 mg daily -Continue losartan 50 mg daily CKD stage IIIb -Baseline serum creatinine appears to be between 1.6 and 1.7 -Serum creatinine on presentation was 1.6 but now renal function is to 1.37 with some gentle hydration and withholding her diuresis -No further IV fluids at this time -Continue to hold home Lasix -Documented from previous note and PCP chart that her most recent echo showed an EF of 65% -Repeat echo is pending due to cardiac murmur and strep bacteremia Hyperlipidemia -Continue home Lipitor Urinary incontinence -Continue home Ditropan 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 twice daily -We will continue Vimpat until able to ascertain correct home med reconciliation History of uterine cancer -No acute issues identified -Patient still has cervix History of tobacco abuse -Remote DVT prophylaxis -Subcu heparin twice daily CODE STATUS -Patient with dementia at baseline unable to fully question her with regards to this and no family at the bedside -We will remain full code but need to clarify if possible Charges/Coding Visit Charges Inpatient E&M: 19734 [facility] Hosp L3
--- NOTE | 2023-07-01 10:55 | ECHOD_ITS ---
Reason For Study: Strep Bacteremia with Murmur Procedure This was a 2D Doppler, Color Flow transthoracic echocardiogram. Exam performed portable in patient room. Left Ventricle Normal LV size. Left ventricular systolic function is normal. The estimated ejection fraction is 60 %. No regional wall motion abnormalities noted. Right Ventricle Normal RV size. Normal systolic function. Atria The left atrium is mildly enlarged. Normal right atrium. Mitral Valve Mild focal mitral valve calcification. Mild-Moderate (1-2+) eccentric mitral valve insufficiency. Tricuspid Valve Normal tricuspid valve. Mild (1+) tricuspid valve insufficiency. Pulmonary artery systolic pressure is 30 mmHg. Aortic Valve Mild focal aortic valve calcification. Peak aortic valve gradient 51 mmHg. Mean aortic valve gradient 32 mmHg. Moderate aortic stenosis. Mild (1+) aortic valve insufficiency. Great Vessels Normal aortic root. Pericardium/Pleural No pericardial effusion. MMode/2D Measurements & Calculations LVIDd: 4.9 cm IVSd: 0.92 cm LVOT diam: 2.1 cm LVIDs: 3.4 cm LVPWd: 0.85 cm LVOT area: 3.5 cm2 RVDd: 3.2 cm FS: 31.9 % Ao root diam: 3.7 cm LAV(MOD-bp): 85.7 ml LVAd ap4: 26.5 cm2 LAV(MOD-bp) Indexed: 49.7 ml/m2 LVLd ap4: 7.3 cm LAV(MOD-sp2): 92.9 ml EDV(MOD-sp4): 78.9 ml LAV(MOD-sp4): 80.3 ml EDV(sp4-el): 81.7 ml LVAs ap4: 14.2 cm2 LVLs ap4: 6.0 cm ESV(MOD-sp4): 28.6 ml ESV(sp4-el): 28.6 ml EF(MOD-sp4): 63.7 % EF(sp4-el): 65.0 % SV(MOD-sp4): 50.3 ml SV(sp4-el): 53.1 ml LA A4 area: 23.9 cm2 LA dimension(2D): 4.1 cm RA A4 area: 12.0 cm2 TAPSE: 2.3 cm Time Measurements MV dec time: 0.24 sec Doppler Measurements & Calculations MV E max carlos: 134.4 cm/sec Lat Peak E' Carlos: 5.4 cm/sec Med Peak E' Carlos: 6.5 cm/sec MV A max carlos: 119.4 cm/sec E/E' lat: 24.9 E/E' med: 20.8 MV E/A: 1.1 MV V2 max: 133.3 cm/sec Ao V2 max: 358.1 cm/sec MV max P.1 mmHg MV dec slope: 559.3 cm/sec2 Ao max P.4 mmHg MV V2 mean: 93.4 cm/sec Ao V2 mean: 272.2 cm/sec MV mean P.8 mmHg Ao mean P.9 mmHg MV V2 VTI: 49.7 cm Ao V2 VTI: 86.8 cm AV (velocity ratio): 0.29 MVA(VTI): 1.8 cm2 MEHUL(I,D): 1.0 cm2 MEHUL(V,D): 1.1 cm2 AI max carlos: 429.6 cm/sec LV V1 max: 112.0 cm/sec SV(LVOT): 89.9 ml AI max P.8 mmHg LV V1 max P.0 mmHg AI dec slope: 295.0 cm/sec2 LV V1 mean P.0 mmHg AI P1/2t: 426.6 msec LV V1 mean: 82.5 cm/sec LV V1 VTI: 25.5 cm PA V2 max: 101.6 cm/sec TR max carlos: 253.9 cm/sec TR max P.8 mmHg ECHO/Echo Complete Interpretation Summary Normal LV size. Left ventricular systolic function is normal. The estimated ejection fraction is 60 %. The left atrium is mildly enlarged. Mean aortic valve gradient 32 mmHg. Moderate aortic stenosis. Ordering Physician: Leatha Jerry Referring Physician: Zeina Schmidt Performed By: Araceli Porter, CARLOS, RVT
--- NOTE | 2023-07-01 11:13 | CASEMGMT ---
Social Work SW?to room to meet with patient for initial transition planning/care coordination?assessment.?Pt sleepy with difficulty staying awake. Pt's son is present and agreeable to assessment. SW?introduced self and role at [facility].? Care providers, pharmacy, and demographics verified. PCP: [facility] Specialists: Pt's son states all physicians are through the [facility] and Dr. Schmidt coordinates. He is unable to states names of specialists. Preferred Pharmacy: [facility] Insurance: Medicare Living Will/HPOA:?Pt able to state that she has not completed a living will or health care POA. SW explained documents to pt and son and provided with a Advance Directive Rack Card in the event pt would like to complete documents. Due to lethargy and mild confusion Pt is not appropriate to compete documents at this time. LNOK: Son, Zurdo Daniels Living Arrangements: Pt's spouse 2 years ago and pt then moved in with her son Zurdo and his . Pt's home has a ramp entrance and first floor set up. Pt is able to complete her own ADLs. Her daughter in law helps pt get in and out of the shower but pt is able to bathe herself. Son and dgt in law assist with cooking, cleaning, medication management and finances. Pt does have 24 hour supervision from her family. Transportation:?Pt's son and daughter in law provide transportation. DME: ? walker, cane, shower chair, high rise toilet with hand rails. HHC/SNF: previously at [facility] for short term rehab. No history of home health or services through [facility]. PLAN: Pt to be evaluated by therapy. Discharge plan is dependent on pt's functional ability. Home with home health services or short term rehab in SNF were discussed with pt and son. A list of SNF providers including quality and resource use data and consistent with the patient?s preferred geographic region, medical needs, and insurance network were provided from the [facility]Port Guide. Pt's son states that if pt does need SNF, his preferred provider [facility]. SW will continue to follow for discharge planning. NI Martinez
[2023-07-01 13:40] LABS: Pathologist Review Reviewed
--- NOTE | 2023-07-01 14:02 | CHAPLAIN ---
Type of Pastoral Visit _x__ Initial Visit ___ Follow-up Visit ___ On-call Visit ___ General Patient Visit ___ Spiritual Assessment ___ Family Conference ___ Bereavement ___ Rapid Response ___ Code Blue ___ Other (describe below) Pastoral Care Referral From _x__ Patient ___ Family ___ Nurse ___ Physician ___ French Pastry Cook ___ Immigration Investigator ___ Other (describe below) Sacrament/Intervention _x__ Active listening ___ Anointing ___ Anabaptist ___ Bereavement ___ Communion ___ Leslie exploration ___ ___ Life review _x__ Prayer ___ Reconciliation ___ Sacrament of Sick ___ Supportive presence ___ Wedding ___ Other (describe below) Pastoral Comments patient was sleeping upon entering room and this electrical and radio mechanic wrote a brief note on calling card; pt then awoke and offer of support was given to her; pt claims that she is fine although her words are a little difficult to understand; pt says that she has four daughters and two sons; pt again says that she is fine; pt did welcome a prayer with prayer anytime is good; offer of ongoing support as desired
--- NOTE | 2023-07-01 15:38 | CASEMGMT ---
Discharge Planning Referral sent to [facility] via [facility]. Daniela Mccormick, Discharge Planning Asst.
--- NOTE | 2023-07-01 16:48 | CASEMGMT ---
Social Work SW reviewed therapy notes. Call placed to pt son and reviewed pt's functional ability with therapy and recommendations for SNF. Zurdo is agreeable that referral be sent to [facility]. Zurdo to be in later and talk to pt regarding need for SNF placement. Plan: [facility], pending acceptance NI Walker
[2023-07-01] MEDS: Atorvastatin Calcium 40 MG Tablet PO (21:03)
[2023-07-02 03:00] VITALS: BP 164/67; PULSE 67; RESP 16; TEMP 36.4; O2SAT 96
[2023-07-02] MEDS: Levothyroxine 25 MCG TABLET PO (06:11)
[2023-07-02 06:46] LABS: Absolute Lymphocyte Count 0.53 X10^3/uL (0.83-4.51); Absolute Neutrophil Count 1.6 X10^3/uL (2.0-7.7); Hematocrit 27.4 % (37-47); Hemoglobin 8.2 g/dL (12.0-15.0); Lymphocyte # 0.53 X10^3/ul (0.83-4.51); Lymphocyte % 19.1 % (19-41); Mean Corp Hgb Conc 29.9 g/dL (32-36); Mean Corpuscular Hgb 25.6 pg (27.0-32.0); Mean Corpuscular Volume 85.6 fL (81-99); Mean Platelet Vol. 10.1 fl (6.2-12.0); Monocyte# 0.64 X10^3/uL; NRBC Flagged by Analyzer 0 % (0-5); Neutrophil % 57.5 % (47-70); POSITIVE COUNT YES; POSITIVE DIFFERENTIAL YES; Platelet Count 57 K/mm3 (150-450); RBC Distribution Width CV 18.6 % (11.6-14.6); RBC Distribution Width SD 58.4 fl (35.1-43.9); White Blood Count 2.8 K/mm3 (4.4-11.0)
[2023-07-02 06:53] LABS: Differential Indicated SCAN CRITERIA MET
[2023-07-02 07:08] LABS: Differential Comment SCANNED; Hypochromasia RARE; Platelet Estimate MOD DEC (ADEQ)
[2023-07-02 07:21] LABS: Anion Gap 6 (5-15); BUN 29 mg/dL (7-18); Calcium,Total 8.5 mg/dL (8.5-10.1); Chloride 107 mmol/L (98-107); Creatinine, Serum 1.26 mg/dL (0.55-1.02); EST Glomerular Filtration Rate 44 mL/min (>60); Est Glom Filt Rate - Afr Amer 53 mL/min (>60); Estimated Creatinine Clearance 33.65 ml/min; Glucose 107 mg/dL (74-106); Potassium 3.8 mmol/L (3.5-5.1); Sodium Level 136 mmol/L (136-145)
--- NOTE | 2023-07-02 08:31 | CASEMGMT ---
Discharge Planning Message sent via [facility] to [facility] regarding status of referral. Daniela Mccormick, Discharge Planning Asst.
--- NOTE | 2023-07-02 09:52 | CASEMGMT ---
Discharge Planning Patient has been accepted by [facility]. SW updated. Daniela Mccormick, Discharge Planning Asst.
[2023-07-02 10:20] VITALS: BP 146/65; PULSE 70; RESP 19; TEMP 36.5; O2SAT 99
[2023-07-02] MEDS: Ferrous Gluconate 324 MG Tablet PO (10:32)
[2023-07-02] MEDS: Oxybutynin 5 MG Tablet PO ×2 (10:32→21:07)
[2023-07-02] MEDS: Furosemide 20 MG Tablet PO (10:32)
[2023-07-02] MEDS: Potassium Chloride Oral Tablet 10 MEQ PO ×2 (10:33→16:36)
[2023-07-02] MEDS: Heparin Injection (Vial) 5,000 UNIT/ML VIAL 5000 UNIT SC ×2 (10:33→21:08)
[2023-07-02] MEDS: Losartan Potassium 50 MG Tablet PO (10:33)
[2023-07-02] MEDS: amLODIPine 10 MG Tablet PO (10:40)
[2023-07-02] MEDS: Petrolatum 33% Tube 1 APPLIC TOPICAL ×2 (10:40→21:07)
[2023-07-02] MEDS: Ceftriaxone 2 GM in 0.9% Normal Saline (50mL MB+) 50 ML IV (10:40)
[2023-07-02] MEDS: 0.9% Saline Lock 10 ML Syringe IV ×2 (10:41→16:42)
--- NOTE | 2023-07-02 10:47 | CON.PCM.ID_ITS ---
Assessment & Plan Assessment/Plan (1) UTI (urinary tract infection): (2) Generalized weakness: (3) Toxic metabolic encephalopathy: PLAN: Improving. UA with 0 wbc, only small growth of ecoli (10-25k). 1 of 2 bcx with strep, so not clear if true bacteremia. Overall improving, cont ceftriaxone for now. Will follow, thank you, d/w Dr. Jerry (4) Bacteremia due to Streptococcus: HPI Consult Data Date of Consult: 07/02/23 HPI Narrative Reason for Consultation: (+) bcx HPI Narrative: JUAREZ CASTILLO, is a 78 F who presented 06/30/23 with acute onset weakness, unable to get up off toilet, and increased confusion. Denies fever, chills, dysuria, abd pain, cough, SOB. Admitted here on ceftriaxone for suspected uti. Feeling better. Now 1 of 2 bcx with strep. Full ROS performed and neg except as noted above. [facility]LY [facility], [facility] Medical History Aneurysm Arthritis CHF (congestive heart failure) Dementia Former smoker History of tobacco abuse History of uterine cancer HTN (hypertension) Hypothyroidism Iron deficiency anemia Kidney disease Migraines Myocardial infarct Stage 3b chronic kidney disease Subarachnoid hemorrhage Thrombocytopenia Urinary incontinence Vitamin D deficiency Home Medications amlodipine 5 mg tablet 5 mg PO DAILY bp 06/30/23 [History Last Taken Unknown] atorvastatin 40 mg tablet 40 mg PO DAILY cholesterol 06/30/23 [History Last Taken Unknown] ferrous gluconate 324 mg (37.5 mg iron) tablet 324 mg PO DAILY supplement 06/30/23 [History Last Taken Unknown] furosemide 20 mg tablet 20 mg PO DAILY diuresis 06/30/23 [History Last Taken Unknown] losartan 50 mg tablet 50 mg PO DAILY bp 06/30/23 [History Last Taken Unknown] oxybutynin chloride 5 mg tablet,extended release 24 hr 5 mg PO DAILY overactive bladder 06/30/23 [History Last Taken Unknown] potassium chloride 10 mEq capsule,extended release 10 meq PO BID supple 06/30/23 [History Last Taken Unknown] Allergy/AdvReac Type Severity Reaction Status Date / Time No Known Allergies Allergy Verified 03/10/15 21:30 Family History (Updated 06/30/23 @ 17:[address] Leatha Jerry DO) Other Cancer Diabetes Heart disease Surgical History History of hysterectomy Social History (Updated 06/30/23 @ 17:[address] Leatha Jerry, DO) household members: family housing: house Smoking Status: Former smoker alcohol intake: never substance use type: does not use Physical Exam Const alert and no apparent distress Constitutional Narrative: oriented x2 General Appearance: cooperative HEENT normocephalic and head/scalp atraumatic Eyes PERRL and EOMs intact bilaterally Neck supple and No nodes Resp normal air movement and clear to auscultation bilaterally Cardio regular rate and regular rhythm Heart Sounds: murmur GI soft to palpation, non-tender and non-distended Extremity General Extremity: Negative for edema Skin no rashes or lesions noted Neuro CN's II-XII intact bilaterally Lab / Micro Data Attestation: I reviewed the patient's lab results. 07/02/23 06:36 07/02/23 06:36 Labs: Laboratory Results - last 24 hr 06/30/23 12:27: Diff Path Review Reviewed 07/02/23 06:36: WBC 2.8 L, RBC 3.20 L, Hgb 8.2 L, Hct 27.4 L, MCV 85.6, MCH 25.6 L, MCHC 29.9 L, RDW Std Deviation 58.4 H, RDW Coeff of Vahid 18.6 H, Plt Count 57 L, MPV 10.1, Immature Gran % (Auto) 0.400, Neut % (Auto) 57.5, Lymph % (Auto) 19.1, [place] % (Auto) 23.0 H, Eos % (Auto) 0.0, Baso % (Auto) 0.0, Absolute Neuts (auto) 1.6 L, Absolute Lymphs (auto) 0.53 L, Nucleated RBC % 0, Differential Comment SCANNED, Diff Path Review May foll, Platelet Estimate MOD DEC, Hypochromasia RARE, Sodium 136, Potassium 3.8, Chloride 107, Carbon Dioxide 23.0, Anion Gap 6, BUN 29 H, Creatinine 1.26 H, Estim Creat Clear Calc 33.65, Est GFR (MDRD) Af Amer 53 L, Est GFR (MDRD) Non-Af 44 L, BUN/Creatinine Ratio 23.0 H, Glucose 107 H, Calcium 8.5 Micro: Microbiology 06/30/23 16:43 Blood Culture (Wb) - Anticubital Left Bacteria Detection (PCR) - Final Strep not Strep pneumo 06/30/23 16:43 Blood Culture (Wb) - Anticubital Left Blood Culture - Preliminary Beta streptococcus 06/30/23 18:43 Urine, Clean Catch Urine Culture - Final Escherichia coli Radiology Impression Echocardiogram 07/01/23 10:55 Interpretation Summary Normal LV size. Left ventricular systolic function is normal. The estimated ejection fraction is 60 %. The left atrium is mildly enlarged. Mean aortic valve gradient 32 mmHg. Moderate aortic stenosis. Ordering Physician: Leatha Jerry Referring Physician: Zeina Schmidt Performed By: Araceli Porter, RDDAISY, RVT
[2023-07-02] MEDS: Lacosamide 100 MG Tablet 200 MG PO ×2 (10:53→21:17)
[2023-07-02] MEDS: 0.9% Normal Saline (250mL Bag) 250 ML 15 ML IV (11:40)
--- NOTE | 2023-07-02 14:09 | PCM.PN.HOSP ---
Reason for Visit Reason for Visit: Generalized weakness Subjective Subjective Patient has no complaints. States she is feeling okay. Plan is for discharge to [facility] at discharge when she is medically stable. Objective Data Objective Data Vital Signs: Vital Signs Temp Pulse Resp BP Pulse Ox O2 Del Method 97.7 F L 70 19 H 146/65 H 99 Room Air 07/02/23 10:20 07/02/23 10:20 07/02/23 10:20 07/02/23 10:20 07/02/23 10:20 07/02/23 10:20 Oxygen Delivery Method Room Air Weight: 70.216 kg Body Mass Index (BMI) 25.7 Intake & Output: Intake and Output for Last 24 Hours 06/30/23 07/01/23 07/02/23 23:59 23:59 23:59 Intake Total 1300 / 1300 1710 / 1770 110 / 110 Output Total 200 / 200 Balance 1100 / 1100 1710 / 1770 110 / 110 Lab / Micro Data 07/02/23 06:36 07/02/23 06:36 Labs: Laboratory Results - last 24 hr 07/02/23 06:36: WBC 2.8 L, RBC 3.20 L, Hgb 8.2 L, Hct 27.4 L, MCV 85.6, MCH 25.6 L, MCHC 29.9 L, RDW Std Deviation 58.4 H, RDW Coeff of Vahid 18.6 H, Plt Count 57 L, MPV 10.1, Immature Gran % (Auto) 0.400, Neut % (Auto) 57.5, Lymph % (Auto) 19.1, [place] % (Auto) 23.0 H, Eos % (Auto) 0.0, Baso % (Auto) 0.0, Absolute Neuts (auto) 1.6 L, Absolute Lymphs (auto) 0.53 L, Nucleated RBC % 0, Differential Comment SCANNED, Diff Path Review May foll, Platelet Estimate MOD DEC, Hypochromasia RARE, Sodium 136, Potassium 3.8, Chloride 107, Carbon Dioxide 23.0, Anion Gap 6, BUN 29 H, Creatinine 1.26 H, Estim Creat Clear Calc 33.65, Est GFR (MDRD) Af Amer 53 L, Est GFR (MDRD) Non-Af 44 L, BUN/Creatinine Ratio 23.0 H, Glucose 107 H, Calcium 8.5 Micro: Microbiology 06/30/23 16:43 Blood Culture (Wb) - Anticubital Left Bacteria Detection (PCR) - Final Strep not Strep pneumo 06/30/23 16:43 Blood Culture (Wb) - Anticubital Left Blood Culture - Preliminary Beta streptococcus 06/30/23 18:43 Urine, Clean Catch Urine Culture - Final Escherichia coli 06/30/23 12:27 Nasal Secretion SARS-CoV-2 & FLU Antigen (Rapid) - Final Radiography Diagnostic Testing: Radiology Impression Echocardiogram 07/01/23 10:55 Interpretation Summary Normal LV size. Left ventricular systolic function is normal. The estimated ejection fraction is 60 %. The left atrium is mildly enlarged. Mean aortic valve gradient 32 mmHg. Moderate aortic stenosis. Ordering Physician: Leatha Jerry Referring Physician: Zeina Schmidt Performed By: Araceli Porter, RDCS, RVT Physical Exam Const no apparent distress, average body habitus and well nourished; Negative for healthy appearing Constitutional Narrative: Very pleasant, elderly, white female, appears older than stated age, sitting up in a chair at the bedside sleeping but awakens easily and is appropriate when awakened, appears comfortable and nontoxic , oriented to self, place, month but not year General Appearance: cooperative HEENT normocephalic, head/scalp atraumatic, hearing grossly normal bilaterally and moist oral mucous membranes; Negative for dentition normal HEENT Narrative: Mallampati is 2, dentition is extremely poor Resp normal respiratory effort, no retractions, no use of accessory muscles and clear to auscultation bilaterally Resp Narrative: Diffusely diminished but clear Auscultation: Negative for rales, rhonchi or wheezes Cardio regular rate, regular rhythm, S1 normal heart sound, no rub, no gallops and no clicks; Negative for S2 normal heart sound or no murmurs Cardio Narrative: 3 out of 6 systolic murmur with soft S2 GI normal to inspection, nondistended, normoactive bowel sounds, soft to palpation and non-tender Extremity no clubbing, cyanosis or edema Neuro CN's II-XII intact bilaterally, moves all extremities and no focal motor deficits Neuro Narrative: Generalized weakness noted-proximal greater than distal but no focal deficits Speech: speech normal Psych affect normal Psych Narrative: Eye contact is good, patient interacts appropriately and is very pleasant Assessment & Plan Assessment/Plan (1) UTI (urinary tract infection): (2) Generalized weakness: (3) Pancytopenia: (4) Toxic metabolic encephalopathy: (5) Bacteremia due to Streptococcus: PLAN: Plan Generalized weakness/debility -Etiology is currently unclear however I do suspect it may be related to possible UTI -Treat urinary tract infection -PT/OT consultation are pending Urinary tract infection -UA is consistent with UTI -Patient is having urinary frequency without dysuria -Culture is identified E. coli however culture bacterial load is less than what would typically be considered infection however she is symptomatic and will need ongoing antibiotics for her bacteremia which should cover her UTI as well -Continue ceftriaxone 2 g daily Beta-hemolytic strep bacteremia -2 of 2 blood cultures are positive for strep which thus far appears to be beta-hemolytic strep -Continue ceftriaxone 2 g daily -Await finalized cultures and sensitivities -Repeat blood cultures tomorrow -Echocardiogram does not show any easily identifiable vegetations and an EF of 60% with normal LV function and a mean aortic valve gradient of 32 mmHg with moderate aortic stenosis -Patient does have pretty poor dentition and it may be related to this depending on pathogen identified -ID consulted-appreciate input Pancytopenia -No previous documentation in [facility] that I can identify however it does look like she has chronic anemia and thrombocytopenia -Most recent CBC from a few months ago had her with a hemoglobin of 9.3 and a platelet count of 153,000 with a normal white count at 4.2 -White count is slowly trending up -Platelet count has stabilized and slightly trended up -Hemoglobin is stable -Repeat CBC in a.m. -Coags are normal -Iron studies are consistent with anemia of chronic disease -Patient had been on home iron previously from the note I found back in November 2022 we will hold for now Aortic valve stenosis -Moderate on echocardiogram -Recommend continued outpatient follow-up -Patient will be preload dependent and would avoid significant afterload reduction Dementia with superimposed toxic/metabolic encephalopathy -Per family patient is a little bit off with regards to her mental status -Seems to be improving overall as patient is oriented to self, place, month but not year -Continue treatment of underlying infections -CT of the brain is unremarkable for any acute findings Hypothyroidism -TSH is within normal limits -Continue home Synthroid 25 mcg daily Hypertension -We will continue to hold home Lasix for now -Blood pressures appear to be fairly well controlled without diuretic therapy -Continue amlodipine 5 mg daily -Continue losartan 50 mg daily CKD stage IIIb -Baseline serum creatinine appears to be between 1.6 and 1.7 -Serum creatinine on presentation was 1.6 but now renal function is to 1.37 with some gentle hydration and withholding her diuresis -No further IV fluids at this time -Continue to hold home Lasix Hyperlipidemia -Continue home Lipitor Urinary incontinence -Continue home Ditropan 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 twice daily -We will continue Vimpat until able to ascertain correct home med reconciliation History of uterine cancer -No acute issues identified -Patient still has cervix History of tobacco abuse -Remote DVT prophylaxis -Subcu heparin twice daily CODE STATUS -Patient with dementia at baseline unable to fully question her with regards to this and no family at the bedside -We will remain full code but need to clarify if possible Disposition: -[facility] which I anticipate patient should be medically ready in the next 24 to 48 hours. I discussed with [facility] and they do feel that she will be able to go on oral antibiotics at discharge Charges/Coding Visit Charges Inpatient E&M: 73072 Subs Hosp L2
--- NOTE | 2023-07-02 15:29 | CASEMGMT ---
Discharge Planning A list of SNF?providers including quality and resource use data and consistent with the patient's preferred geographic region, medical needs, and insurance network was created in [facility]Port Guide.? It was discovered that patient has Rose MCR so new list was created. Family also requested a list of network facilities in [place]. This list was placed in the patients room per family request. Daniela Mccormick, Discharge Planning Asst.
[2023-07-02 16:40] VITALS: BP 123/61; PULSE 69; RESP 18; TEMP 36.5; O2SAT 100
[2023-07-02] MEDS: Atorvastatin Calcium 40 MG Tablet PO (21:08)
[2023-07-02 21:20] VITALS: BP 145/74; PULSE 78; RESP 16; TEMP 36.4; O2SAT 99
[2023-07-03 04:05] VITALS: BP 155/79; PULSE 84; RESP 16; TEMP 36.9; O2SAT 93
[2023-07-03] MEDS: Levothyroxine 25 MCG TABLET PO (05:31)
[2023-07-03 07:44] LABS: Absolute Lymphocyte Count 0.64 X10^3/uL (0.83-4.51); Absolute Neutrophil Count 1.5 X10^3/uL (2.0-7.7); Hematocrit 26.2 % (37-47); Hemoglobin 7.7 g/dL (12.0-15.0); Lymphocyte # 0.64 X10^3/ul (0.83-4.51); Lymphocyte % 26.4 % (19-41); Mean Corp Hgb Conc 29.4 g/dL (32-36); Mean Corpuscular Hgb 24.8 pg (27.0-32.0); Mean Corpuscular Volume 84.5 fL (81-99); Mean Platelet Vol. 10.4 fl (6.2-12.0); Monocyte# 0.29 X10^3/uL; NRBC Flagged by Analyzer 0 % (0-5); Neutrophil # 1.46 X10^3/uL (2.7-7.7); Neutrophil % 60.4 % (47-70); POSITIVE COUNT YES; Platelet Count 67 K/mm3 (150-450); RBC Distribution Width CV 18.2 % (11.6-14.6); RBC Distribution Width SD 56.5 fl (35.1-43.9); White Blood Count 2.4 K/mm3 (4.4-11.0)
[2023-07-03 08:09] LABS: Anion Gap 8 (5-15); BUN 37 mg/dL (7-18); BUN/Creat Ratio 30.6 RATIO (10-20); Calcium,Total 8.5 mg/dL (8.5-10.1); Chloride 105 mmol/L (98-107); Creatinine, Serum 1.21 mg/dL (0.55-1.02); EST Glomerular Filtration Rate 46 mL/min (>60); Est Glom Filt Rate - Afr Amer 56 mL/min (>60); Estimated Creatinine Clearance 35.04 ml/min; Glucose 107 mg/dL (74-106); Potassium 3.7 mmol/L (3.5-5.1); Sodium Level 137 mmol/L (136-145)
[2023-07-03 08:34] VITALS: O2SAT 97
--- NOTE | 2023-07-03 08:45 | CASEMGMT ---
Social Work Pt's son requesting SNF placement at [facility]. SW spoke with pt who is agreeable to this. Referral to be sent to [facility]. Plan: [facility], pending acceptance and precert NI Martinez
[2023-07-03] MEDS: Losartan Potassium 50 MG Tablet PO (08:49)
[2023-07-03] MEDS: amLODIPine 10 MG Tablet PO (08:49)
[2023-07-03] MEDS: Oxybutynin 5 MG Tablet PO ×2 (08:49→21:45)
[2023-07-03] MEDS: Furosemide 20 MG Tablet PO (08:49)
[2023-07-03] MEDS: Ferrous Gluconate 324 MG Tablet PO (08:49)
[2023-07-03] MEDS: Potassium Chloride Oral Tablet 10 MEQ PO ×2 (08:49→17:06)
[2023-07-03] MEDS: Ceftriaxone 2 GM in 0.9% Normal Saline (50mL MB+) 50 ML IV (08:50)
[2023-07-03] MEDS: Heparin Injection (Vial) 5,000 UNIT/ML VIAL 5000 UNIT SC ×2 (08:50→21:45)
[2023-07-03] MEDS: Petrolatum 33% Tube 1 APPLIC TOPICAL ×2 (08:50→21:45)
--- NOTE | 2023-07-03 08:54 | CASEMGMT ---
Discharge Planning Referral sent to [facility] via [facility]. Daniela Mccormick, Discharge Planning Asst.
[2023-07-03 09:18] LABS: Pathologist Review Reviewed
[2023-07-03 09:47] VITALS: BP 135/74; PULSE 83; RESP 16; TEMP 36.6; O2SAT 97
--- NOTE | 2023-07-03 10:21 | CASEMGMT ---
Discharge Planning [facility] accepted patient. They need verification of her address d/t many being associated with her insurance policy. They will submit precert when this is obtained. Patient is unsure of her address since she recently moved in with her son. A vm was left for her son. SW updated of the above. Daniela Mccormick, Discharge Planning Asst.
[2023-07-03 10:55] LABS: Hemoglobin 7.6 g/dL (12.0-15.0)
--- NOTE | 2023-07-03 11:50 | PCM.TXEXTCAR ---
Diet Diet Order/Speech Therapy: 06/30/23 17:36 Diet: Cardiac - Heart Healthy Food consistency:: Regular Liquid Consistency:: Regular/Thin Type of Dietary Supplement:: Ensure Plus High Protein Is pt able to select menu?: No Diet Comments: 120mL ensure plus high protein BID w/ breakfast and dinner Routine Orders/Code Status Suppository Frequency: Daily PRN O2 Liters per Minute: 2 O2 Frequency: PRN Keep PO Greater than or Equal to (%): 92 Routine Lab Work: CBC (5 days) and BMP (5 days) Code Status: Full Code Therapies Weight Bearing: Full weight bearing Physical Therapy: Eval and Treat Occupational Therapy: Eval and Treat Problem/Diagnosis (1) UTI (urinary tract infection): Status: Acute Code(s): N39.0 - Urinary tract infection, site not specified (2) Generalized weakness: Status: Acute Code(s): R53.1 - Weakness (3) Pancytopenia: Status: Acute Code(s): D61.818 - Other pancytopenia (4) Toxic metabolic encephalopathy: Status: Acute Code(s): G92.8 - Other toxic encephalopathy (5) Bacteremia due to Streptococcus: Status: Acute Code(s): R78.81 - Bacteremia; B95.5 - Unspecified streptococcus as the cause of diseases classified elsewhere Allergies/Procedures Done in Hospital Allergies No Known Allergies Allergy (Verified 03/10/15 21:30) Type of Care/Length of Stay Estimated LOS: Convalescent Care Less Than 30 days Type of Care Needed: Skilled Rehab Potential: Good Prognosis: Fair Additional Orders/Day of Discharge Day of Discharge: 07/03/23 Dietary and Speech Recommendations Dietitian Recommendations/Changes: Continue Cardiac Diet given medical hx including lasix/CHF. Will add 120 mL ensure plus high protein BID w/ breakfast and dinner meals. Additional ONS as needed. Discharge Plan Admission Admit Date/Time: 06/30/23 16:13 Attending Provider: Leatha Jerry Primary Care Provider: Zeina Schmidt Consulting Providers: Nir Lamas Discharge Orders/Prescriptions Prescriptions: No Action potassium chloride 10 mEq capsule, extended release 10 meq PO BID Patient Comments: TAKE 1 CAPSULE BY MOUTH TWICE DAILY furosemide 20 mg tablet 20 mg PO DAILY Patient Comments: TAKE 1 TABLET BY MOUTH ONCE DAILY ferrous gluconate 324 mg (37.5 mg iron) tablet 324 mg PO DAILY Patient Comments: TAKE 1 TABLET BY MOUTH ONCE DAILY WITH BREAKFAST oxybutynin chloride 5 mg tablet extended release 24hr 5 mg PO DAILY Patient Comments: TAKE 1 TABLET BY MOUTH ONCE DAILY losartan 50 mg tablet 50 mg PO DAILY Patient Comments: TAKE 1 TABLET BY MOUTH ONCE DAILY amlodipine 5 mg tablet 5 mg PO DAILY Patient Comments: TAKE 1 TABLET BY MOUTH ONCE DAILY atorvastatin 40 mg tablet 40 mg PO DAILY Patient Comments: TAKE 1 TABLET BY MOUTH ONCE DAILY AT BEDTIME Referrals / Follow Up: Zeina Schmidt MD [Primary Care Provider] - Care Physician,No Primary [Non-Staff] -
--- NOTE | 2023-07-03 11:52 | CASEMGMT ---
Discharge Planning Address was verified from [facility] and sent to [facility] via [facility]. Daniela Mccormick, Discharge Planning Asst.
--- NOTE | 2023-07-03 12:00 | PCM.PN.ID ---
Physical Exam Narrative Sleeping, no fever, no events overnight Const no apparent distress Resp normal air movement and clear to auscultation bilaterally Cardio regular rate and regular rhythm GI soft to palpation, non-tender and non-distended Skin no rashes or lesions noted ID ID: Route of nutrition/ use of supplements: [] Nutritional Intake: [] IV Site: [] Cortés Catheter: [] Assessment & Plan Assessment/Plan (1) UTI (urinary tract infection): (2) Generalized weakness: (3) Toxic metabolic encephalopathy: PLAN: Improving. UA with 0 wbc, only small growth of ecoli (10-25k). 1 of 2 bcx with strep, so not clear if true bacteremia. Overall improving, ok for discharge home with 5 more days po keflex 500mg tid. Will follow, d/w bilingual patient support caseworker and Dr. Jerry (4) Bacteremia due to Streptococcus:
--- NOTE | 2023-07-03 15:00 | DS.PCM_ITS ---
Providers Date of Admission: 06/30/23 Date of Discharge: 07/03/23 Primary Care Physician: Dr. Zeina Schmidt MD Consultations 07/02/23 08:03 Consult: Infectious Disease Routine Consulting Provider: Nir Lamas Reason for Consult: Strep bacteremia-suspect oral source EMERGENT Consult: No MD Notified: Yes Date Notified: 07/02/23 Time Notified: 08:03 Method of Notification: Text Reason For Visit: UTI/GENERALIZED WEAKNESS Diagnosis Discharge Diagnosis (1) UTI (urinary tract infection): Status: Acute Code(s): N39.0 - Urinary tract infection, site not specified (2) Generalized weakness: Status: Acute Code(s): R53.1 - Weakness (3) Toxic metabolic encephalopathy: Status: Acute Code(s): G92.8 - Other toxic encephalopathy (4) Bacteremia due to Streptococcus: Status: Acute Code(s): R78.81 - Bacteremia; B95.5 - Unspecified streptococcus as the cause of diseases classified elsewhere Medications at Discharge Home Medications atorvastatin 40 mg tablet 40 mg PO DAILY cholesterol 06/30/23 ferrous gluconate 324 mg (37.5 mg iron) tablet 324 mg PO DAILY supplement 06/30/23 furosemide 20 mg tablet 20 mg PO DAILY diuresis 06/30/23 losartan 50 mg tablet 50 mg PO DAILY bp 06/30/23 oxybutynin chloride 5 mg tablet,extended release 24 hr 5 mg PO DAILY overactive bladder 06/30/23 potassium chloride 10 mEq capsule,extended release 10 meq PO BID supple 06/30/23 Petrolatum 33% [Eucerin Eqivalent] 1 applic topical BID ##0 07/03/23 amlodipine 10 mg tablet 10 mg PO DAILY #0 tabs 07/03/23 cephalexin 500 mg capsule 500 mg PO TID #14 caps 07/03/23 lacosamide 100 mg tablet (Vimpat) 200 mg (2 x 100 mg) PO BID #0 tabs 07/03/23 levothyroxine 25 mcg tablet 25 mcg PO DAILY@0600 #0 tabs 07/03/23 sennosides 8.6 mg-docusate sodium 50 mg tablet (Stool Softener-Stimulant Laxative) 2 tab PO BID PRN PRN Constipation #0 tabs 07/03/23 Hospital Course Procedures 2-D Echocardiogram and - (Renal ultrasound/CT brain/chest x-ray) Summary of Care Provided Minutes Spent on Discharge: 38 Hospital Course: JUAREZ CASTILLO, is a 78 F who presented the emergency department at [facility] on 06/30/2023 with generalized weakness and the inability to stand after sitting on the toilet. Family had left by the time I evaluated her in the emergency department however they reported to the emergency department physician that she went to the bathroom and sat on the toilet but then was too weak to stand. Her son had to help her get off the toilet which is very atypical for her as typically she can basically care for herself. They also noted she was having some more confusion than her baseline so they called the squad to bring her in. They denied her having any recent illnesses sick contacts or falls or trauma. She currently resides with her son and [id number] at their home. Vital signs on presentation showed temperature of 97.2, initial heart rate was 104 but heart rate came down to upper 90s with some IV fluids, blood pressure was 166/78, respiratory rate was 16 and oxygen saturations were 96 to 98% on room air. CBC showed pancytopenia with a white count of 2.2, hemoglobin of 9.3 and a platelet count of 79,000. Her white count had not been abnormal on her most recent CBC at [facility] and was 4.2 at that time however she does have chronic anemia with a stable hemoglobin at 9.3. Her last platelet count was 153,000 however there is documented thrombocytopenia in her chart previously. The differential shows a monocytosis. Her chemistry panel was overall unremarkable. Electrolytes were normal. Her BUN was 36 and her serum creatinine was 1.6 however on previous lab work it appears that her BUN was 37 and serum creatinine is 1.67 so she is at her baseline. Lab work was otherwise unremarkable. Her UA is consistent with infection showing some protein, occult blood, nitrites, leuk esterase, and 1+ bacteria. There were interestingly no white cells seen at this time however the patient was having symptoms of frequency. Her EKG was unremarkable showing normal sinus rhythm with normal intervals. Chest x-ray was unremarkable. CT of the brain showed chronic changes from previous subarachnoid hemorrhage and intervention but with no acute intracranial hemorrhage or space-occupying lesion. In the emergency department she was treated IV fluids and given IV ceftriaxone for suspected UTI admitted to the medical floor. Blood cultures were drawn prior to her being admitted as were urine cultures. Urine culture showed E. coli that was pansensitive. 2 of 2 blood cultures were positive for strep dysagalactiae. We did obtain an echocardiogram to rule out endocarditis as she had a significant cardiac murmur. Echo showed no valvular vegetations however she does have moderate aortic stenosis which is consistent with her cardiac murmur. Repeat blood cultures were obtained and pending at discharge to assure clearance however clinically she is dramatically improved. Despite her improvement she remained pancytopenic however counts were stable. I would recommend that a repeat CBC be done after she has completed her oral antibiotics and if she still shows pancytopenia she needs a referral to hematology for further work-up I would be high slightly suspicious of myelofibrosis given these findings. Her iron studies were consistent with anemia of chronic disease. She did not have any obvious blood loss. We did order a guaiac however stool was not able to be obtained to send for sample. Given the stability of her hemoglobin during her hospitalization I suspect no acute bleeding however. With her bacteremia we did consult infectious disease. I do highly suspect the source was oral as her dentition is poor and do recommend she follow-up with a dentist or oral specialist after discharge. Keflex 500 mg 3 times daily for 5 more days was recommended at the time of her discharge. Physical therapy and Occupational Therapy recommended ongoing physical therapy prior to her returning home and she was able to be discharged to the nursing facility for ongoing rehab on. Discharge diagnoses: Generalized weakness/debility Urinary tract infection Strep dysagalactiae bacteremia Pancytopenia--> if does not improve with treatment of her bacteremia and his persistent will need outpatient follow-up with hematology to rule out myelofibrosis Moderate aortic valve stenosis Dementia Toxic/metabolic encephalopathy-resolved Hypothyroidism Hypertension CKD stage IIIb Hyperlipidemia Urinary incontinence History of subarachnoid hemorrhage Seizure disorder History of uterine cancer History of tobacco abuse Physical Exam Const alert, no apparent distress, average body habitus and well nourished; Negative for healthy appearing Constitutional Narrative: Very pleasant, elderly, white female, appears older than stated age, sitting up in a chair at the bedside sleeping but awakens easily and is appropriate when awakened, appears comfortable and nontoxic , oriented to self, place, month but not year General Appearance: cooperative, comfortable, well kempt and well developed Orientation / Consciousness: awake, oriented to person and oriented to place Exam Limitations: other limitations HEENT normocephalic, head/scalp atraumatic, hearing grossly normal bilaterally and moist oral mucous membranes; Negative for dentition normal HEENT Narrative: Dentition is poor, Mallampati is 2, no thrush Eyes PERRL, EOMs intact bilaterally and conjunctivae normal Eyes Narrative: conjunctiva pallor bilaterally, no scleral icterus Neck no lymphadenopathy and supple Neck Narrative: Trachea midline, no thyroid enlargement Resp normal respiratory effort, no retractions, no use of accessory muscles and clear to auscultation bilaterally Resp Narrative: Diffusely diminished but clear Auscultation: Negative for rales, rhonchi or wheezes Cardio regular rate, regular rhythm, S1 normal heart sound, no rub, no gallops and no clicks; Negative for S2 normal heart sound or no murmurs Cardio Narrative: 3 out of 6 systolic murmur with soft S2 GI normal to inspection, nondistended, normoactive bowel sounds, soft to palpation and non-tender Extremity no clubbing, cyanosis or edema Extremity Narrative: Significant bilateral lower extremity onychomycosis with poor nail care Skin no wounds, skin turgor normal and no jaundice Skin Narrative: Severe onychomycosis bilateral lower extremities and skin on legs/feet is exceedingly dry Neuro CN's II-XII intact bilaterally, moves all extremities and no focal motor deficits Neuro Narrative: Generalized weakness noted-proximal greater than distal but no focal deficits Sensorium / Orientation: awake, alert, oriented to person and oriented to place Speech: speech normal Psych affect normal Psych Narrative: Eye contact is good, patient interacts appropriately and is very pleasant Weight / BMI Weight Weight: 70.216 kg Body Mass Index (BMI) 25.7 ABG / Lab / Microbiology Data 07/03/23 10:40 07/03/23 06:55 Laboratory: Laboratory Results - last 24 hr 07/02/23 06:36: Diff Path Review Reviewed 07/03/23 06:55: WBC 2.4 L, RBC 3.10 L, Hgb 7.7 L, Hct 26.2 L, MCV 84.5, MCH 24.8 L, MCHC 29.4 L, RDW Std Deviation 56.5 H, RDW Coeff of Vahid 18.2 H, Plt Count 67 L, MPV 10.4, Immature Gran % (Auto) 1.200 H, Neut % (Auto) 60.4, Lymph % (Auto) 26.4, [place] % (Auto) 12.0 H, Eos % (Auto) 0.0, Baso % (Auto) 0.0, Absolute Neuts (auto) 1.5 L, Absolute Lymphs (auto) 0.64 L, Nucleated RBC % 0, Sodium 137, Pota ssium 3.7, Chloride 105, Carbon Dioxide 24.0, Anion Gap 8, BUN 37 H, Creatinine 1.21 H, Estim Creat Clear Calc 35.04, Est GFR (MDRD) Af Amer 56 L, Est GFR (MDRD) Non-Af 46 L, BUN/Creatinine Ratio 30.6 H, Glucose 107 H, Calcium 8.5 07/03/23 10:40: Hgb 7.6 L Microbiology: Microbiology 06/30/23 17:04 Blood Culture (Wb) - Anticubital Right Blood Culture - Preliminary No growth in 48 hours. 06/30/23 16:43 Blood Culture (Wb) - Anticubital Left Bacteria Detection (PCR) - Final Strep not Strep pneumo 06/30/23 16:43 Blood Culture (Wb) - Anticubital Left Blood Culture - Final Streptococcus dysgalactiae equ 06/30/23 18:43 Urine, Clean Catch Urine Culture - Final Escherichia coli 06/30/23 12:27 Nasal Secretion SARS-CoV-2 & FLU Antigen (Rapid) - Final D/C Instructions Discharge Diet: Low fat / Low cholesterol Discharge Activity: Return to Normal Activity Meaningful Use Info Meaningful Use Diagnoses (Choose all that apply): None applicable Discharge Plan Admission Admit Date/Time: 06/30/23 16:13 Primary Reason for Your Visit: Generalized weakness/Debility Attending Provider: Leatha Jerry Primary Care Provider: Zeina Schmidt Consulting Providers: Nir Lamas Instructions Additional Instructions / Restrictions: 1. Will need repeat BMP once treatment for infection is completed to reassess pancytopenia and if still pancytopenic will need hematology follow up. 2. Should be evaluated by a dental specialist after discharge as I suspect the bacteremia is from an oral/dental source Discharge Orders/Prescriptions Prescriptions: New cephalexin 500 mg capsule 500 mg PO TID Qty: 14 0RF sennosides-docusate sodium [Stool Softener-Stimulant Laxat] 8.6-50 mg Tablet 2 tab PO BID PRN PRN (Reason: Constipation) Qty: 0 0RF levothyroxine 25 mcg Tablet 25 mcg PO DAILY@0600 Qty: 0 0RF amlodipine 10 mg Tablet 10 mg PO DAILY Qty: 0 0RF lacosamide [Vimpat] 100 mg Tablet 200 mg PO BID Qty: 0 0RF Petrolatum 33% [Eucerin Eqivalent] 1 applic topical BID Qty: 0 0RF Continued potassium chloride 10 mEq capsule, extended release 10 meq PO BID Patient Comments: TAKE 1 CAPSULE BY MOUTH TWICE DAILY furosemide 20 mg tablet 20 mg PO DAILY Patient Comments: TAKE 1 TABLET BY MOUTH ONCE DAILY ferrous gluconate 324 mg (37.5 mg iron) tablet 324 mg PO DAILY Patient Comments: TAKE 1 TABLET BY MOUTH ONCE DAILY WITH BREAKFAST oxybutynin chloride 5 mg tablet extended release 24hr 5 mg PO DAILY Patient Comments: TAKE 1 TABLET BY MOUTH ONCE DAILY losartan 50 mg tablet 50 mg PO DAILY Patient Comments: TAKE 1 TABLET BY MOUTH ONCE DAILY atorvastatin 40 mg tablet 40 mg PO DAILY Patient Comments: TAKE 1 TABLET BY MOUTH ONCE DAILY AT BEDTIME Discontinued amlodipine 5 mg tablet 5 mg PO DAILY Patient Comments: TAKE 1 TABLET BY MOUTH ONCE DAILY Referrals / Follow Up: Zeina Schmidt MD [Primary Care Provider] - Within 1 Month Care Physician,No Primary [Non-Staff] - Disposition Disposition (needs filled in before D/C Order can be placed): Custodial Facility Charges/Coding Visit Charges Inpatient E&M: 98099 SNF Disch >30 Min
[2023-07-03 15:11] VITALS: BP 133/64; PULSE 74; RESP 16; TEMP 37.2; O2SAT 97
--- NOTE | 2023-07-03 15:15 | PCM.PN.HOSP ---
Reason for Visit Reason for Visit: Generalized weakness/debility Subjective Subjective No issues overnight. Patient sleeping sitting up in a chair at the time of my evaluation but awakens easily and denies any problems. I did inform her that she will be able to be discharged as soon as we obtained pre-CERT from insurance company. Objective Data Objective Data Vital Signs: Vital Signs Temp Pulse Resp BP Pulse Ox O2 Del Method 98.9 F 74 16 133/64 H 97 Room Air 07/03/23 15:11 07/03/23 15:11 07/03/23 15:11 07/03/23 15:11 07/03/23 15:11 07/03/23 15:11 Oxygen Delivery Method Room Air Weight: 70.216 kg Body Mass Index (BMI) 25.7 Intake & Output: Intake and Output for Last 24 Hours 07/01/23 07/02/23 07/03/23 23:59 23:59 23:59 Intake Total 1710 / 1770 845 / 845 300 / 300 Balance 1710 / 1770 845 / 845 300 / 300 Lab / Micro Data 07/03/23 10:40 07/03/23 06:55 Labs: Laboratory Results - last 24 hr 07/02/23 06:36: Diff Path Review Reviewed 07/03/23 06:55: WBC 2.4 L, RBC 3.10 L, Hgb 7.7 L, Hct 26.2 L, MCV 84.5, MCH 24.8 L, MCHC 29.4 L, RDW Std Deviation 56.5 H, RDW Coeff of Vahid 18.2 H, Plt Count 67 L, MPV 10.4, Immature Gran % (Auto) 1.200 H, Neut % (Auto) 60.4, Lymph % (Auto) 26.4, [place] % (Auto) 12.0 H, Eos % (Auto) 0.0, Baso % (Auto) 0.0, Absolute Neuts (auto) 1.5 L, Absolute Lymphs (auto) 0.64 L, Nucleated RBC % 0, Sodium 137, Potassium 3.7, Chloride 105, Carbon Dioxide 24.0, Anion Gap 8, BUN 37 H, Creatinine 1.21 H, Estim Creat Clear Calc 35.04, Est GFR (MDRD) Af Amer 56 L, Est GFR (MDRD) Non-Af 46 L, BUN/Creatinine Ratio 30.6 H, Glucose 107 H, Calcium 8.5 07/03/23 10:40: Hgb 7.6 L Micro: Microbiology 06/30/23 17:04 Blood Culture (Wb) - Anticubital Right Blood Culture - Preliminary No growth in 48 hours. 06/30/23 16:43 Blood Culture (Wb) - Anticubital Left Bacteria Detection (PCR) - Final Strep not Strep pneumo 06/30/23 16:43 Blood Culture (Wb) - Anticubital Left Blood Culture - Final Streptococcus dysgalactiae equ 06/30/23 18:43 Urine, Clean Catch Urine Culture - Final Escherichia coli 06/30/23 12:27 Nasal Secretion SARS-CoV-2 & FLU Antigen (Rapid) - Final Physical Exam Const alert, no apparent distress, average body habitus and well nourished; Negative for healthy appearing Constitutional Narrative: Very pleasant, elderly, white female, appears older than stated age, sitting up in a chair at the bedside sleeping but awakens easily and is appropriate when awakened, appears comfortable and nontoxic , oriented to self, place, month but not year HEENT normocephalic, head/scalp atraumatic, hearing grossly normal bilaterally and moist oral mucous membranes; Negative for dentition normal HEENT Narrative: Dentition is extremely poor, Mallampati is 2, no thrush Neck Neck Narrative: Trachea midline, no thyroid enlargement Resp normal respiratory effort, no retractions, no use of accessory muscles and clear to auscultation bilaterally Resp Narrative: Diffusely diminished but clear Auscultation: Negative for rales, rhonchi or wheezes Cardio regular rate, regular rhythm, S1 normal heart sound, no rub, no gallops and no clicks; Negative for S2 normal heart sound or no murmurs Cardio Narrative: 3 out of 6 systolic murmur with soft S2 GI normal to inspection, nondistended, normoactive bowel sounds, soft to palpation and non-tender Extremity no clubbing, cyanosis or edema Neuro CN's II-XII intact bilaterally, moves all extremities and no focal motor deficits Neuro Narrative: Generalized weakness noted-proximal greater than distal but no focal deficits Sensorium / Orientation: awake, alert, oriented to person and oriented to place Speech: speech normal Psych affect normal Psych Narrative: Eye contact is good, patient interacts appropriately and is very pleasant Assessment & Plan Assessment/Plan (1) UTI (urinary tract infection): (2) Generalized weakness: (3) Toxic metabolic encephalopathy: (4) Bacteremia due to Streptococcus: PLAN: Plan Generalized weakness/debility -Etiology is currently unclear however I do suspect it may be related to possible UTI -Treat underlying UTI/bacteremia -PT/OT is following E. coli urinary tract infection -Treatment completed Strep dysagalactaie bacteremia -2 of 2 blood cultures are positive for strep which thus far appears to be beta-hemolytic strep -Continue ceftriaxone 2 g daily -Repeat blood cultures are pending for clearance -Plan is for Keflex 3 times daily x5 days at discharge per discussion with infectious disease -Echocardiogram does not show any easily identifiable vegetations and an EF of 60% with normal LV function and a mean aortic valve gradient of 32 mmHg with moderate aortic stenosis -Patient does have pretty poor dentition and it may be related to this depending on pathogen identified -ID following-appreciate input Pancytopenia -No previous documentation in [facility] that I can identify however it does look like she has chronic anemia and thrombocytopenia -Most recent CBC from a few months ago had her with a hemoglobin of 9.3 and a platelet count of 153,000 with a normal white count at 4.2 -White count is slowly trending up -Counts are all stable -Iron studies are consistent with anemia of chronic disease -Patient had been on home iron previously from the note I found back in November 2022 we will hold for now -We will recommend a repeat CBC be done after she has completed antibiotics to assess for correction if not improved would refer to hematology for work-up to include exclusion of myelo fibrosis -Anticipate patient may need bone marrow biopsy Aortic valve stenosis -Moderate on echocardiogram -Recommend continued outpatient follow-up -Patient will be preload dependent and would avoid significant afterload reduction Dementia with superimposed toxic/metabolic encephalopathy -Per family patient is a little bit off with regards to her mental status -Seems to be improving overall as patient is oriented to self, place, month but not year -Continue treatment of underlying infections -CT of the brain is unremarkable for any acute findings Hypothyroidism -TSH is within normal limits -Continue home Synthroid 25 mcg daily Hypertension -We will continue to hold home Lasix for now -Blood pressures appear to be fairly well controlled without diuretic therapy -Continue amlodipine 5 mg daily -Continue losartan 50 mg daily CKD stage IIIb -Baseline serum creatinine appears to be between 1.6 and 1.7 -Serum creatinine stable at 1.21 -Continue to hold home Lasix Hyperlipidemia -Continue home Lipitor Urinary incontinence -Continue home Ditropan 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 twice daily -We will continue Vimpat until able to ascertain correct home med reconciliation History of uterine cancer -No acute issues identified -Patient still has cervix History of tobacco abuse -Remote DVT prophylaxis -Subcu heparin twice daily CODE STATUS -Patient with dementia at baseline unable to fully question her with regards to this and no family at the bedside -We will remain full code but need to clarify if possible Disposition: -Patient is medically ready for discharge and now just awaiting pre-CERT Charges/Coding Visit Charges Inpatient E&M: 88238 Subs Hosp L2
--- NOTE | 2023-07-03 15:52 | CASEMGMT ---
Social Work SW placed call to pt nidia Renner and updated that [facility] has accepted and precert is pending. Per physician, when precert is obtained, pt can discharge [place] agreeable to dc plan. Plan: [facility], pending precert NI Martinez
[2023-07-03 20:32] VITALS: BP 151/64; PULSE 77; RESP 16; TEMP 37.2; O2SAT 96
[2023-07-03] MEDS: Atorvastatin Calcium 40 MG Tablet PO (21:45)
[2023-07-03] MEDS: 0.9% Saline Lock 10 ML Syringe IV (21:45)
[2023-07-04 02:30] VITALS: BP 151/84; PULSE 90; RESP 16; TEMP 37.2; O2SAT 94
[2023-07-04] MEDS: Levothyroxine 25 MCG TABLET PO (05:11)
[2023-07-04 07:03] LABS: Absolute Lymphocyte Count 0.78 X10^3/uL (0.83-4.51); Absolute Neutrophil Count 1.1 X10^3/uL (2.0-7.7); Hematocrit 26.6 % (37-47); Lymphocyte # 0.78 X10^3/ul (0.83-4.51); Lymphocyte % 34.4 % (19-41); Mean Corp Hgb Conc 30.1 g/dL (32-36); Mean Corpuscular Hgb 25.5 pg (27.0-32.0); Mean Corpuscular Volume 84.7 fL (81-99); Monocyte# 0.34 X10^3/uL; NRBC Flagged by Analyzer 0 % (0-5); Neutrophil # 1.12 X10^3/uL (2.7-7.7); Neutrophil % 49.3 % (47-70); POSITIVE COUNT YES; Platelet Count 80 K/mm3 (150-450); RBC Distribution Width CV 18.2 % (11.6-14.6); RBC Distribution Width SD 56.4 fl (35.1-43.9); Red Blood Count 3.14 M/mm3 (4.2-5.4); White Blood Count 2.3 K/mm3 (4.4-11.0)
[2023-07-04 07:40] LABS: Anion Gap 8 (5-15); BUN 34 mg/dL (7-18); BUN/Creat Ratio 29.6 RATIO (10-20); Calcium,Total 8.5 mg/dL (8.5-10.1); Chloride 108 mmol/L (98-107); Creatinine, Serum 1.15 mg/dL (0.55-1.02); EST Glomerular Filtration Rate 49 mL/min (>60); Est Glom Filt Rate - Afr Amer 59 mL/min (>60); Estimated Creatinine Clearance 36.86 ml/min; Glucose 106 mg/dL (74-106); Potassium 3.5 mmol/L (3.5-5.1); Sodium Level 138 mmol/L (136-145)
[2023-07-04 09:08] VITALS: BP 127/74; PULSE 88; RESP 18; TEMP 36.4; O2SAT 99
[2023-07-04] MEDS: Potassium Chloride Oral Tablet 10 MEQ PO ×2 (10:24→17:08)
[2023-07-04] MEDS: Oxybutynin 5 MG Tablet PO ×2 (10:24→20:44)
[2023-07-04] MEDS: Losartan Potassium 50 MG Tablet PO (10:24)
[2023-07-04] MEDS: Furosemide 20 MG Tablet PO (10:25)
[2023-07-04] MEDS: amLODIPine 10 MG Tablet PO (10:25)
[2023-07-04] MEDS: Heparin Injection (Vial) 5,000 UNIT/ML VIAL 5000 UNIT SC ×2 (10:25→20:44)
[2023-07-04] MEDS: Ferrous Gluconate 324 MG Tablet PO (10:25)
[2023-07-04] MEDS: Ceftriaxone 2 GM in 0.9% Normal Saline (50mL MB+) 50 ML IV (10:27)
[2023-07-04] MEDS: Petrolatum 33% Tube 1 APPLIC TOPICAL ×2 (10:27→20:45)
[2023-07-04] MEDS: Lacosamide 100 MG Tablet 200 MG PO ×2 (10:30→20:45)
--- NOTE | 2023-07-04 14:09 | PN.HOSP_ITS ---
Reason for Visit Reason for Visit: Generalized weakness Subjective Subjective No issues overnight. Family reports that they have taken her off her levothyroxine and she has been off it for some time. Her TSH was normal so I think we can leave her off of it for now. They also discontinued her Vimpat and a discussed with the nurse that we should probably continue this with her history and risk. She was able to talk to the family again and they were fine w ith this. Objective Data Objective Data Vital Signs: Vital Signs Temp Pulse Resp BP Pulse Ox O2 Del Method 97.5 F L 88 18 127/74 H 99 Room Air 07/04/23 09:08 07/04/23 09:08 07/04/23 09:08 07/04/23 09:08 07/04/23 09:08 07/04/23 09:11 Oxygen Delivery Method Room Air Weight: 70.216 kg Body Mass Index (BMI) 25.7 Intake & Output: Intake and Output for Last 24 Hours 07/02/23 07/03/23 07/04/23 23:59 23:59 23:59 Intake Total 845 / 845 500 / 500 50 / 50 Balance 845 / 845 500 / 500 50 / 50 Lab / Micro Data 07/04/23 06:34 07/04/23 06:34 Labs: Laboratory Results - last 24 hr 07/04/23 06:34: WBC 2.3 L, RBC 3.14 L, Hgb 8.0 L, Hct 26.6 L, MCV 84.7, MCH 25.5 L, MCHC 30.1 L, RDW Std Deviation 56.4 H, RDW Coeff of Vahid 18.2 H, Plt Count 80 L, MPV 10.0, Immature Gran % (Auto) 1.300 H, Neut % (Auto) 49.3, Lymph % (Auto) 34.4, [place] % (Auto) 15.0 H, Eos % (Auto) 0.0, Baso % (Auto) 0.0, Absolute Neuts (auto) 1.1 L, Absolute Lymphs (auto) 0.78 L, Nucleated RBC % 0, Sodium 138, Potassium 3.5, Chloride 108 H, Carbon Dioxide 22.0, Anion Gap 8, BUN 34 H, Creatinine 1.15 H, Estim Creat Clear Calc 36.86, Est GFR (MDRD) Af Amer 59 L, Es t GFR (MDRD) Non-Af 49 L, BUN/Creatinine Ratio 29.6 H, Glucose 106, Calcium 8.5 Micro: Microbiology 06/30/23 17:04 Blood Culture (Wb) - Anticubital Right Blood Culture - Preliminary No growth in 48 hours. 06/30/23 16:43 Blood Culture (Wb) - Anticubital Left Bacteria Detection (PCR) - Final Strep not Strep pneumo 06/30/23 16:43 Blood Culture (Wb) - Anticubital Left Blood Culture - Final Streptococcus dysgalactiae equ 06/30/23 18:43 Urine, Clean Catch Urine Culture - Final Escherichia coli 06/30/23 12:27 Nasal Secretion SARS-CoV-2 & FLU Antigen (Rapid) - Final Physical Exam Const alert, no apparent distress, average body habitus and well nourished; Negative for healthy appearing Constitutional Narrative: Very pleasant, elderly, white female, appears older than stated age, sitting up in a chair at the bedside eating breakfast, appears comfortable and nontoxic , remains oriented to self, place, month but not year HEENT normocephalic, head/scalp atraumatic, hearing grossly normal bilaterally and moist oral mucous membranes; Negative for dentition normal HEENT Narrative: Dentition is poor, Mallampati is 2, no thrush Resp normal respiratory effort, no retractions, no use of accessory muscles and clear to auscultation bilaterally Resp Narrative: Diffusely diminished but clear Auscultation: Negative for rales, rhonchi or wheezes Cardio regular rate, regular rhythm, S1 normal heart sound, no rub, no gallops and no clicks; Negative for S2 normal heart sound or no murmurs Cardio Narrative: 3 out of 6 systolic murmur with soft S2 GI normal to inspection, nondistended, normoactive bowel sounds, soft to palpation and non-tender Extremity no clubbing, cyanosis or edema Neuro moves all extremities and no focal motor deficits Neuro Narrative: Generalized weakness noted-proximal greater than distal but no focal deficits Sensorium / Orientation: awake, alert, oriented to person and oriented to place Speech: speech normal Psych affect normal Psych Narrative: Eye contact is good, patient interacts appropriately and is very pleasant Assessment & Plan Assessment/Plan (1) UTI (urinary tract infection): (2) Generalized weakness: (3) Toxic metabolic encephalopathy: (4) Bacteremia due to Streptococcus: PLAN: Plan Generalized weakness/debility -Etiology is currently unclear however I do suspect it may be related to possible UTI -Treat underlying UTI/bacteremia -PT/OT is following E. coli urinary tract infection -Treatment completed Strep dysagalactaie bacteremia -2 of 2 blood cultures are positive for strep which thus far appears to be beta- hemolytic strep -Continue ceftriaxone 2 g daily -Repeat blood cultures are pending for clearance -Plan is for Keflex 3 times daily x5 days at discharge per discussion with infectious disease -Echocardiogram does not show any easily identifiable vegetations and an EF of 60% with normal LV function and a mean aortic valve gradient of 32 mmHg with moderate aortic stenosis -Patient does have pretty poor dentition and it may be related to this depending on pathogen identified -ID following-appreciate input Pancytopenia -No previous documentation in [facility] that I can identify however it does look like she has chronic anemia and thrombocytopenia -Most recent CBC from a few months ago had her with a hemoglobin of 9.3 and a platelet count of 153,000 with a normal white count at 4.2 -White count is slowly trending up -Counts are all stable -Iron studies are consistent with anemia of chronic disease -Patient had been on home iron previously from the note I found back in November 2022 we will hold for now -We will recommend a repeat CBC be done after she has completed antibiotics to assess for correction if not improved would refer to hematology for work-up to include exclusion of myelo fibrosis -Anticipate patient may need bone marrow biopsy Aortic valve stenosis -Moderate on echocardiogram -Recommend continued outpatient follow-up -Patient will be preload dependent and would avoid significant afterload reduction Dementia with superimposed toxic/metabolic encephalopathy -Per family patient is a little bit off with regards to her mental status -Seems to be improving overall as patient is oriented to self, place, month but not year -Continue treatment of underlying infections -CT of the brain is unremarkable for any acute findings Hypothyroidism -TSH is within normal limits -We will stop Synthroid as patient had not been taking this at home as we were finally able to get a med reconciliation from family with regards to this Hypertension -We will continue to hold home Lasix for now -Blood pressures appear to be fairly well controlled without diuretic therapy -Continue amlodipine 10 mg daily -Continue losartan 50 mg daily CKD stage IIIb -Baseline serum creatinine appears to be between 1.6 and 1.7 -Serum creatinine stable at 1.21 -Continue to hold home Lasix Hyperlipidemia -Continue home Lipitor Urinary incontinence -Continue home Ditropan 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 twice daily History of uterine cancer -No acute issues identified -Patient still has cervix History of tobacco abuse -Remote DVT prophylaxis -Subcu heparin twice daily CODE STATUS -Patient with dementia at baseline unable to fully question her with regards to this and no family at the bedside -We will remain full code but need to clarify if possible Disposition: -Patient has been medically ready for discharge since 07/03/2023 and now just awaiting pre-CERT Charges/Coding Visit Charges Inpatient E&M: 60939 Subs Hosp L2
[2023-07-04 17:10] VITALS: BP 144/70; PULSE 84; RESP 18; TEMP 36.6; O2SAT 96
[2023-07-04] MEDS: Atorvastatin Calcium 40 MG Tablet PO (20:44)
[2023-07-04 20:54] VITALS: BP 134/72; PULSE 96; RESP 16; TEMP 37.9; O2SAT 97
[2023-07-05] VITALS (14 sets, daily range): BP systolic 86–151; BP diastolic 63–90; PULSE 78–132; RESP 18–32; TEMP 36.7–39.7; O2SAT 90–99
--- NOTE | 2023-07-05 06:30 | NURSING ---
noc technician notified this RN of pt extremely warm. This RN in to check pt's temp, 103.5 ax. Pt drowsy with labored breathing. Attempted administering PO Tylenol crushed in applesauce without success as pt was not responsive enough to follow commands. Janie, primary RN updated who was reaching out to Dr. Jerry for further orders.
[2023-07-05 07:19] LABS: Absolute Lymphocyte Count 1.29 X10^3/uL (0.83-4.51); Absolute Neutrophil Count 2.2 X10^3/uL (2.0-7.7); Hematocrit 27.5 % (37-47); Hemoglobin 8.2 g/dL (12.0-15.0); Lymphocyte # 1.29 X10^3/ul (0.83-4.51); Lymphocyte % 31.9 % (19-41); Mean Corp Hgb Conc 29.8 g/dL (32-36); Mean Corpuscular Hgb 24.9 pg (27.0-32.0); Mean Corpuscular Volume 83.6 fL (81-99); Mean Platelet Vol. 9.9 fl (6.2-12.0); Monocyte# 0.48 X10^3/uL; Monocyte% 11.9 % (0-10); NRBC Flagged by Analyzer 0 % (0-5); Neutrophil # 2.23 X10^3/uL (2.7-7.7); Neutrophil % 55.2 % (47-70); Platelet Count 100 K/mm3 (150-450); RBC Distribution Width CV 18.3 % (11.6-14.6); RBC Distribution Width SD 56.1 fl (35.1-43.9); Red Blood Count 3.29 M/mm3 (4.2-5.4)
--- NOTE | 2023-07-05 07:21 | RAD_ITS ---
EXAM: XR CHEST, 1 VIEW CLINICAL INDICATION: SOB TECHNIQUE: Frontal view of the chest. COMPARISON: June 30, 2023. FINDINGS: LUNGS AND PLEURAL SPACES: The lungs are mildly underinflated compared to prior exam. Mild increased perihilar and central interstitial lung markings probably accentuated by the relative hypoinflation. No definite infiltrates or effusions. No pneumothorax. HEART: Stable borderline cardiomegaly. MEDIASTINUM: Central airways and mediastinal contour are unremarkable. BONES/JOINTS: Mild thoracic spondylosis. SOFT TISSUES: Unremarkable. RAD/Chest 1 View (Portable) IMPRESSION: Mild decreased pulmonary inflation and slight increased perihilar and central lung markings compared to prior exam. Otherwise stable, including borderline cardiomegaly. Electronically Signed: Anjelica Pichardo MD at 7:58 EDT ,
--- NOTE | 2023-07-05 07:21 | CT_ITS ---
HISTORY: MS Change. TECHNIQUE: Multiple axial images were obtained of the head without intravenous contrast. A radiation dose optimization technique was used for this scan. 243 images. COMPARISON: 06/30/2023. FINDINGS: BRAIN PARENCHYMA: Multiple foci and zones of low attenuation in the bilateral cerebral white matter compatible with chronic small vessel ischemic gliosis. Small chronic cerebellar and pontine infarcts. No acute intra-axial hemorrhage identified. CSF SPACES: Generalized volume loss. No midline shift or other significant mass effect. No acute extra-axial hemorrhage seen. 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 OTHER: Intact calvarium. No significant air fluid levels in the paranasal sinuses or mastoid air cells. Unremarkable orbits. CT/Brain/Head without Contrast IMPRESSION: No acute intracranial process identified. Moderate chronic involutional and white matter changes. Electronically Signed: Bisi Sánchez MD at 8:19 EDT ,
[2023-07-05 07:36] LABS: Anion Gap 7 (5-15); BUN 46 mg/dL (7-18); Calcium,Total 8.7 mg/dL (8.5-10.1); Chloride 108 mmol/L (98-107); Creatinine, Serum 1.77 mg/dL (0.55-1.02); EST Glomerular Filtration Rate 30 mL/min (>60); Est Glom Filt Rate - Afr Amer 36 mL/min (>60); Estimated Creatinine Clearance 23.95 ml/min; Glucose 113 mg/dL (74-106); Potassium 4.7 mmol/L (3.5-5.1); Sodium Level 137 mmol/L (136-145)
[2023-07-05] MEDS: Lactated Ringers 1,000 ML 125 ML IV (08:15)
[2023-07-05 08:18] LABS: Base Excess -3 mmol/L (-2 to +2); Bicarbonate 19.5 mmol/L (22-26); Blood Gas Specimen Type ART; Mode Not entered; O2 Delivery Device Cannula; PO2 71 mmHG (75-100); SITE L Radial; SO2 96 % (95-99); Total Carbon Dioxide 20 mmol/L; pH 7.52 (7.35-7.45)
--- NOTE | 2023-07-05 08:19 | CT_ITS ---
HISTORY: pain. TECHNIQUE: Helically acquired images were obtained of the abdomen and pelvis without oral or IV contrast. A radiation dose optimization technique was used for this scan. 452 images. COMPARISON: US 06/30/2023. FINDINGS: LOWER CHEST: Dependent lower lobe opacities with mild pleural and pericardial effusions. BOWEL: Small bowel nondilated. Appendix not visualized. Colonic diverticulosis without pericolonic inflammation. Moderate stool and air distending the colon. Moderate stool in the rectum with mild rectal wall thickening and perirectal stranding. PERITONEUM: No significant free fluid. LIVER: 14.7 cm in length, nonenlarged. GALLBLADDER/BILIARY TREE: Multiple calcified gallstones. SPLEEN: 16 cm in length. PANCREAS/ADRENAL GLANDS: Unremarkable. KIDNEYS AND URETERS: Mild bilateral hydronephrosis without nephrolithiasis or obstructing ureteral calculus. VESSELS: No abdominal aortic aneurysm. Atherosclerosis of the abdominal aorta and its major branches. PELVIC ORGANS: Distended urinary bladder. Absent uterus. BONES: Degenerative change. CT/Abdomen/Pelvis without Cont IMPRESSION: Mild pericardial and pleural effusions with lower lobe atelectasis, possible pneumonia. Moderate stool in the colon with mild rectal distention and perirectal edema/inflammation. Colonic diverticulosis without acute diverticulitis. Mild bilateral hydronephrosis with distended urinary bladder, suggesting bladder outlet obstruction. No nephrolithiasis or ureterolithiasis. Cholelithiasis. Mild hepatomegaly. Electronically Signed: Bisi Sánchez MD at 9:49 EDT ,
[2023-07-05] MEDS: Vancomycin IV 1,000 MG/200 ML BAG 200 MG IV (09:14)
[2023-07-05] MEDS: Acetaminophen 650 MG Suppository RC (09:15)
[2023-07-05] MEDS: Petrolatum 33% Tube 1 APPLIC TOPICAL ×2 (10:04→22:17)
[2023-07-05] MEDS: Lacosamide 200 MG in 0.9% Normal Saline (50mL Bag) 50 ML 100 MG IV (10:04)
[2023-07-05] MEDS: Heparin Injection (Vial) 5,000 UNIT/ML VIAL 5000 UNIT SC ×2 (10:05→22:19)
--- NOTE | 2023-07-05 10:09 | PCM.PN.HOSP ---
Reason for Visit Reason for Visit: Weakness Subjective Subjective Patient was clinically doing much better until this morning when she developed fever, confusion, tachypnea and a rhonchorous sounding cough. Work-up is in progress however highly suspect an aspiration pneumonia. On exam she appeared to have some abdominal discomfort with palpation so we did get a CT of the abdomen pelvis which revealed no acute abnormalities explaining any abdominal issues other than constipation. She did however, have hydronephrosis which was new from her renal ultrasound that was done on 06/30/2023. She had no identified obstruction so I do suspect this is likely related to renal retention and a Cortés was placed. This may be the reason for the rise in her creatinine. Objective Data Objective Data Vital Signs: Vital Signs Temp Pulse Resp BP Pulse Ox O2 Del Method O2 Flow Rate 99 F 94 30 H 115/64 94 Non-Rebreather 3 07/05/23 09:25 07/05/23 09:25 07/05/23 09:25 07/05/23 09:25 07/05/23 09:25 07/05/23 09:25 07/05/23 08:14 Oxygen Flow Rate (L/min) 3 Oxygen Delivery Method Non-Rebreather Weight: 70.216 kg Body Mass Index (BMI) 25.7 Intake & Output: Intake and Output for Last 24 Hours 07/03/23 07/04/23 07/05/23 23:59 23:59 23:59 Intake Total 500 / 500 50 / 50 Output Total 100 / 100 Balance 500 / 500 50 / 50 -100 / -100 Lab / Micro Data 07/05/23 06:57 07/05/23 06:57 Labs: Laboratory Results - last 24 hr 07/05/23 06:57: WBC 4.0 L, RBC 3.29 L, Hgb 8.2 L, Hct 27.5 L, MCV 83.6, MCH 24.9 L, MCHC 29.8 L, RDW Std Deviation 56.1 H, RDW Coeff of Vahid 18.3 H, Plt Count 100 L, MPV 9.9, Immature Gran % (Auto) 1.000 H, Neut % (Auto) 55.2, Lymph % (Auto) 31.9, [place] % (Auto) 11.9 H, Eos % (Auto) 0.0, Baso % (Auto) 0.0, Absolute Neuts (auto) 2.2, Absolute Lymphs (auto) 1.29, Nucleated RBC % 0, Sodium 137, Potassium 4.7, Chloride 108 H, Carbon Dioxide 22.0, Anion Gap 7, BUN 46 H, Creatinine 1.77 H, Estim Creat Clear Calc 23.95, Est GFR (MDRD) Af Amer 36 L, Est GFR (MDRD) Non-Af 30 L, BUN/Creatinine Ratio 26.0 H, Glucose 113 H, Calcium 8.7 Micro: Microbiology 06/30/23 17:04 Blood Culture (Wb) - Anticubital Right Blood Culture - Preliminary No growth in 48 hours. 06/30/23 16:43 Blood Culture (Wb) - Anticubital Left Bacteria Detection (PCR) - Final Strep not Strep pneumo 06/30/23 16:43 Blood Culture (Wb) - Anticubital Left Blood Culture - Final Streptococcus dysgalactiae equ 06/30/23 18:43 Urine, Clean Catch Urine Culture - Final Escherichia coli 06/30/23 12:27 Nasal Secretion SARS-CoV-2 & FLU Antigen (Rapid) - Final ABG Data ABG results: ABG 07/05/23 08:11 Specimen Type ART Sample Site L Radial pH 7.52 H Bicarbonate Actual 19.5 L Total CO2 20 Base Excess -3 L O2 Saturation 96 O2 % 2.0 ABG pCO2 24.0 L ABG pO2 71 L O2 Delivery Device Cannula Vent Mode Not entered Radiography Diagnostic Testing: Radiology Impression Brain CT 07/05/23 07:21 IMPRESSION: No acute intracranial process identified. Moderate chronic involutional and white matter changes. Electronically Signed: Bisi Sánchez MD at 8:19 EDT , Chest X-Ray 07/05/23 07:21 IMPRESSION: Mild decreased pulmonary inflation and slight increased perihilar and central lung markings compared to prior exam. Otherwise stable, including borderline cardiomegaly. Electronically Signed: Anjelica Pichardo MD at 7:58 EDT , Abdomen/Pelvis CT 07/05/23 08:19 IMPRESSION: Mild pericardial and pleural effusions with lower lobe atelectasis, possible pneumonia. Moderate stool in the colon with mild rectal distention and perirectal edema/inflammation. Colonic diverticulosis without acute diverticulitis. Mild bilateral hydronephrosis with distended urinary bladder, suggesting bladder outlet obstruction. No nephrolithiasis or ureterolithiasis. Cholelithiasis. Mild hepatomegaly. Electronically Signed: Bisi Sánchez MD at 9:49 EDT , Physical Exam Const average body habitus; Negative for no apparent distress or healthy appearing Constitutional Narrative: Patient is somnolent, tachypneic and febrile, will awaken to tactile stimuli and to her name but has significantly worsening confusion since yesterday, appears ill Orientation / Consciousness: confused, disoriented and lethargic HEENT head/scalp atraumatic HEENT Narrative: Because membranes are dry this morning, Mallampati is 2, dentition is extremely poor Head and Scalp: normocephalic Eyes PERRL and EOMs intact bilaterally Eyes Narrative: Conjunctiva are mildly pale bilaterally, no scleral icterus Neck no lymphadenopathy and supple Neck Narrative: Trachea midline with no thyroid enlargement Resp No normal respiratory effort, no retractions, no use of accessory muscles and No clear to auscultation bilaterally Resp Narrative: Tachypneic with rhonchi in the right side, also has upper airway adventitious sounds, no wheeze or rales, patient also has developed a rhonchorous cough Auscultation: rhonchi; Negative for rales or wheezes Cardio regular rate, regular rhythm, S1 normal heart sound, no rub, no gallops and no clicks; Negative for S2 normal heart sound or no murmurs Cardio Narrative: 3-4 out of 6 systolic murmur loudest at right upper sternal border radiates to bilateral carotids, S2 is soft GI normal to inspection, nondistended, normoactive bowel sounds and soft to palpation GI Narrative: Mild tenderness with palpation diffusely but no significant distention, abdomen is soft Extremity no clubbing, cyanosis or edema Extremity Narrative: Pedal pulses are 2+ Skin Skin Narrative: Pale, warm to touch Neuro moves all extremities and no focal motor deficits Neuro Narrative: Confused, able to move all extremities, Speech: Negative for speech normal Psych Psych Narrative: Unable to assess Assessment & Plan Assessment/Plan (1) UTI (urinary tract infection): (2) Generalized weakness: (3) Toxic metabolic encephalopathy: (4) Bacteremia due to Streptococcus: (5) Fever: (6) Tachypnea: (7) MIKE (acute kidney injury): (8) Pancytopenia: (9) Constipation: (10) Aspiration pneumonia: (11) Bilateral hydronephrosis: PLAN: Plan Suspected aspiration pneumonia -Patient clinically was doing well and then overnight developed some decompensation especially with regards to his respiratory status -Has developed fevers -Chest x-ray is unchanged however CT of her abdomen pelvis which was done for some mild abdominal pain to rule out any intra-abdominal etiology shows some possible basilar pneumonia -We will make her n.p.o. and have speech therapy evaluate her -Anticipates she may need a modified barium swallow once her mental status improves back to her baseline -Broaden her antibiotics back out to Zosyn and vancomycin -Repeat cultures are pending -Repeat viral panel -Check sputum culture with NT suction -As needed rectal Tylenol for fever -Start pulmonary toilet -ABG is stable on 2 L nasal cannula Fever -Repeat blood cultures, urine culture, obtain sputum culture -CT abdomen pelvis does not show any identifiable bowel etiology -Highly suspect aspiration pneumonia and treatment as above -Repeat respiratory panel and COVID-19 -As needed Tylenol -Ice packs and a fan Bilateral hydronephrosis -Notified on CT of the abdomen pelvis -I suspect this is related to some urinary retention -We will place Cortés -Repeat ultrasound tomorrow to assure that her hydronephrosis has resolved with Cortés placement -Patient did have ultrasound on 06/30/2023 that was unremarkable -Patient also has moderate constipation on CT which could attribute to urinary retention -Hold home Ditropan Constipation -We will do enema x1 -Dulcolax after enema -Once able to take p.o. we will start p.o. MiraLAX daily MIKE on CKD stage IIIb -Baseline serum creatinine appears to be between 1.6 and 1.7 on admission -However this may be inaccurate as per renal function yesterday was 1.15 -Renal function up overnight -We will hold losartan and Lasix -Start IV fluid Generalized weakness/debility -Likely secondary to above infections -Treat underlying UTI/bacteremia and now pneumonia -PT/OT is following E. coli urinary tract infection -Treatment completed Strep dysagalactaie bacteremia -2 of 2 blood cultures are positive for strep which thus far appears to be beta-hemolytic strep -Antibiotics broadened as above -Repeat blood cultures for clearance were unremarkable but drawn on 07/03/2023 -P cultures were performed today due to the above -Plan was for Keflex 3 times daily x5 days at discharge per discussion with infectious disease however this may change with the change in her respiratory status and work-up for further infection -Echocardiogram does not show any easily identifiable vegetations and an EF of 60% with normal LV function and a mean aortic valve gradient of 32 mmHg with moderate aortic stenosis -Patient does have pretty poor dentition and it may be related to this depending on pathogen identified -ID following-appreciate input Pancytopenia -No previous documentation in [facility] that I can identify however it does look like she has chronic anemia and thrombocytopenia -Most recent CBC from a few months ago had her with a hemoglobin of 9.3 and a platelet count of 153,000 with a normal white count at 4.2 -White count is slowly trending up -Counts are all stable -Iron studies are consistent with anemia of chronic disease -Patient had been on home iron previously from the note I found back in November 2022 we will hold for now -We will recommend a repeat CBC be done after she has completed antibiotics to assess for correction if not improved would refer to hematology for work-up to include exclusion of myelofibrosis -Anticipate patient may need bone marrow biopsy Aortic valve stenosis -Moderate on echocardiogram -Recommend continued outpatient follow-up -Patient will be preload dependent and would avoid significant afterload reduction Dementia with superimposed toxic/metabolic encephalopathy -Per family patient is a little bit off with regards to her mental status -Seems to be improving overall as patient is oriented to self, place, month but not year -Continue treatment of underlying infections -Initial CT and repeat CT are unremarkable for any acute findings -ABG is unremarkable for any CO2 retention Hypothyroidism -TSH is within normal limits -We will stop Synthroid as patient had not been taking this at home as we were finally able to get a med reconciliation from family with regards to this Hypertension -Hold oral antihypertensives -We will make as needed antihypertensives available IV Hyperlipidemia -Hold home Lipitor Urinary incontinence -Hold home Ditropan 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 twice daily on hold due to suspected aspiration -We will order Vimpat 200 mg IV twice daily History of uterine cancer -No acute issues identified -Patient still has cervix History of tobacco abuse -Remote DVT prophylaxis -Subcu heparin twice daily CODE STATUS -Patient with dementia at baseline unable to fully question her with regards to this and no family at the bedside -We will remain full code but need to clarify if possible Disposition: -Patient was medically stable for discharge however she developed what I suspect to be an aspiration pneumonia and now discharge will need to be placed on hold Charges/Coding Visit Charges Inpatient E&M: 46792 Subs Hosp L3
--- NOTE | 2023-07-05 11:00 | EKG12_ITS ---
Test Reason : TACHY Blood Pressure : / mmHG Vent. Rate : 145 BPM Atrial Rate : 145 BPM P-R Int : 104 ms QRS Dur : 086 ms QT Int : 320 ms P-R-T Axes : 000 -15 172 degrees QTc Int : 497 ms ATRIAL TACHCARDIA Left ventricular hypertrophy with repolarization abnormality ( Jerod product ) Abnormal ECG When compared with ECG of 30-JUN-2023 13:30, Sinus rhythm has replaced Atrial fibrillation ST now depressed in Inferior leads ST now depressed in Lateral leads T wave inversion now evident in Lateral leads Confirmed by SUNDEEP CALDERON, LAYO ([id number]), assistant production editor KATELYN HOWELL ([id number]) on 07/09/2023 1:25:43 PM Referred By: Confirmed By:LAYO URBANO MD
[2023-07-05] MEDS: Lactated Ringers 1,000 ML 999 ML IV ×3 (11:08→13:29)
[2023-07-05] MEDS: Piperacil/Tazobactam 3.375 GM in 0.9% Normal Saline (50mL MB+) 50 ML IV ×2 (11:08→22:15)
--- NOTE | 2023-07-05 11:41 | PCM.RX.CS ---
Consult Antibiotic Management Pharmacy has been consulted to manage selected antiobiotic: Vancomycin Type of Intervention Type of Consult: New start Suspected Infection Suspected Infection: Pneumonia Labs Labs: Sodium 137 mmol/L (136-145) 07/05/23 06:57 Potassium 4.7 mmol/L (3.5-5.1) 07/05/23 06:57 Chloride 108 mmol/L (98-107) H 07/05/23 06:57 Carbon Dioxide 22.0 mmol/L (21.0-32.0) 07/05/23 06:57 Anion Gap 7 (5-15) 07/05/23 06:57 BUN 46 mg/dL (7-18) H 07/05/23 06:57 Creatinine 1.77 mg/dL (0.55-1.02) H 07/05/23 06:57 Est GFR (MDRD) Af Amer 36 mL/min (>60) L 07/05/23 06:57 Est GFR (MDRD) Non-Af 30 mL/min (>60) L 07/05/23 06:57 BUN/Creatinine Ratio 26.0 RATIO (10-20) H 07/05/23 06:57 Glucose 113 mg/dL (74-106) H 07/05/23 06:57 Microbiology Microbiology: Microbiology 07/05/23 08:21 Mucosa - Nasopharyngeal Respiratory Panel (PCR) - Final 07/03/23 06:55 Blood Culture (Wb) - Anticubital Left Blood Culture - Preliminary No growth in 48 hours. 06/30/23 17:04 Blood Culture (Wb) - Anticubital Right Blood Culture - Preliminary No growth in 48 hours. 06/30/23 16:43 Blood Culture (Wb) - Anticubital Left Bacteria Detection (PCR) - Final Strep not Strep pneumo 06/30/23 16:43 Blood Culture (Wb) - Anticubital Left Blood Culture - Final Streptococcus dysgalactiae equ 06/30/23 18:43 Urine, Clean Catch Urine Culture - Final Escherichia coli 06/30/23 12:27 Nasal Secretion SARS-CoV-2 & FLU Antigen (Rapid) - Final Goal Trough Goal Trough: 15-20 mcg/mL Pharmacy Plan for Drug Dosing Pharmacy Plan for Drug Dosing: NEW START IV VANCOMYCIN Consulting Physician: Dr. Codie Jerry Indication: R/O aspiration pneumonia Goal Trough: 15-20 SrCr: 1.77 CrCl: 24 mL/min Comments: Initial dose of vancomycin 1000mg IV x1 ordered and administered 07/05 @0914 Vancomycin Dose: Vancomycin 500mg IV Q24hr to start 07/06 @0900 Pending Level: 07/07/23 @0830, prior to 3rd total dose per protocol Pharmacy Service will continue to monitor and adjust dosing as required.
--- NOTE | 2023-07-05 13:29 | PN.HOSP_ITS ---
Hospitalist Note Family updated today at the bedside with regards to status change and plan of care along with findings. We also discussed her home medications. They definitively noted she has been off her levothyroxine for some time. TSH was unremarkable on admission so I think we can leave her off of this. They also report that about 4 years ago a neurologist or neurosurgeon up at [facility] took her off the Vimpat so I think we can discontinue this as well and monitor her closely.
[2023-07-05] MEDS: Bisacodyl 10 MG Suppository RC (14:13)
[2023-07-05] MEDS: Menthol/Lanolin/Calamine/Znox 113 GM Tube 1 APPLIC TOPICAL ×2 (14:13→22:16)
[2023-07-05 16:06] LABS: M R Staph aureus DNA By PCR Negative (Negative); Probe Check PASS; Specimen Processing Control PASS
[2023-07-05] MEDS: Lactated Ringers 1,000 ML 70 ML IV (22:23)
[2023-07-06] VITALS (8 sets, daily range): BP systolic 107–122; BP diastolic 58–84; PULSE 80–105; RESP 16–18; TEMP 36.2–37.1; O2SAT 92–97
[2023-07-06] MEDS: Menthol/Lanolin/Calamine/Znox 113 GM Tube 1 APPLIC TOPICAL ×3 (05:57→23:10)
[2023-07-06 06:25] LABS: Absolute Lymphocyte Count 0.87 X10^3/uL (0.83-4.51); Absolute Neutrophil Count 2.4 X10^3/uL (2.0-7.7); Basophil# 0.01 X10^3/uL; Basophil% 0.3 % (0-1); Hematocrit 24.4 % (37-47); Lymphocyte # 0.87 X10^3/ul (0.83-4.51); Lymphocyte % 23.5 % (19-41); Mean Corp Hgb Conc 28.7 g/dL (32-36); Mean Corpuscular Volume 87.1 fL (81-99); Monocyte# 0.42 X10^3/uL; Monocyte% 11.3 % (0-10); NRBC Flagged by Analyzer 0 % (0-5); Neutrophil # 2.37 X10^3/uL (2.7-7.7); Neutrophil % 63.8 % (47-70); POSITIVE COUNT YES; Platelet Count 84 K/mm3 (150-450); RBC Distribution Width CV 18.4 % (11.6-14.6); White Blood Count 3.7 K/mm3 (4.4-11.0)
[2023-07-06 06:52] LABS: ALB/GLOB Ratio 0.5 RATIO (0.9-2.4); AST(SGOT) 23 U/L (15-37); Alanine Aminotransfer ALT/SGPT 25 U/L (13-56); Albumin, Serum 2.1 g/dL (3.2-5.0); Alkaline Phosphatase 77 U/L (45-117); Anion Gap 9 (5-15); BUN 45 mg/dL (7-18); BUN/Creat Ratio 30.2 RATIO (10-20); Chloride 112 mmol/L (98-107); Creatinine, Serum 1.49 mg/dL (0.55-1.02); EST Glomerular Filtration Rate 36 mL/min (>60); Est Glom Filt Rate - Afr Amer 44 mL/min (>60); Estimated Creatinine Clearance 28.45 ml/min; Globulin 4.3 g/dL (2.2-4.2); Glucose 92 mg/dL (74-106); Magnesium 2.3 mg/dL (1.6-2.6); Phosphorus 3.5 mg/dL (2.5-4.9); Potassium 3.9 mmol/L (3.5-5.1); Protein, Total 6.4 g/dL (6.4-8.2); Sodium Level 141 mmol/L (136-145)
[2023-07-06] MEDS: Vancomycin IV 500 MG/100 ML BAG 100 MG IV (08:46)
[2023-07-06] MEDS: Heparin Injection (Vial) 5,000 UNIT/ML VIAL 5000 UNIT SC (08:48)
[2023-07-06] MEDS: Petrolatum 33% Tube 1 APPLIC TOPICAL ×2 (08:49→23:10)
--- NOTE | 2023-07-06 09:28 | CASEMGMT ---
Social Work Precert was attained, SW will let physician know in anticipation of pt going to SNF today. SUELLEN Gonzalez
--- NOTE | 2023-07-06 10:06 | US_ITS ---
INDICATION: hydronephrosis EXAMINATION: Ultrasound US Kidney(s) complete (eg, kidneys and bladder) TECHNIQUE: Gomez scale and color doppler images were obtained of the kidneys. COMPARISON: 06/30/2023 FINDINGS: RIGHT KIDNEY: Measures 9.9 x 4.6 x 4.9 cm. Mild caliectasis without shira hydronephrosis. Extrarenal pelvis present. No shadowing calculus or perinephric collection is demonstrated. There is a 1.9 cm simple parapelvic cyst present. No follow-up imaging recommended. LEFT KIDNEY: Measures 9.4 x 5.4 x 5.3 cm. Mild caliectasis without shira hydronephrosis. Extrarenal pelvis present No shadowing calculus or perinephric collection is demonstrated. There is a 2.0 cm simple parapelvic cyst present. No follow-up imaging recommended. URINARY BLADDER: Decompressed by Cortés catheter and poorly assessed. US/Kidney and Bladder IMPRESSION: Mild bilateral caliectasis and extrarenal pelves, without shira hydronephrosis. Electronically Signed: Efren Blackwell MD at 16:23 EDT ,
--- NOTE | 2023-07-06 11:18 | EKG12_ITS ---
Test Reason : AFIB Blood Pressure : / mmHG Vent. Rate : 105 BPM Atrial Rate : 000 BPM P-R Int : 000 ms QRS Dur : 078 ms QT Int : 312 ms P-R-T Axes : 000 -10 068 degrees QTc Int : 412 ms Atrial fibrillation with rapid ventricular response Abnormal ECG When compared with ECG of 05-JUL-2023 10:36, MANUAL COMPARISON REQUIRED, DATA IS UNCONFIRMED Confirmed by SUNDEEP CALDERON, LAYO ([id number]), film editor supervisor KATELYN HOWELL ([id number]) on 07/09/2023 1:24:04 PM Referred By: BISHOP Confirmed By:LAYO URBANO MD
--- NOTE | 2023-07-06 12:04 | PN_ITS ---
Subjective Subjective Patient seen and examined. She was frail, but able to communicate. She denied any fever, chills, cough, chest pain, palpitations, dizziness, nausea, vomiting or any other symptoms. REview of systems is otherwise negative. Objective Data Objective Data Vital Signs: Vital Signs Temp Pulse Resp BP Pulse Ox O2 Del Method O2 Flow Rate 98.7 F 94 18 117/75 92 Nasal Cannula 2 07/06/23 08:39 07/06/23 08:39 07/06/23 08:39 07/06/23 08:39 07/06/23 10:38 07/06/23 10:38 07/06/23 10:38 FiO2 100 07/05/23 14:40 Oxygen Flow Rate (L/min) 2 Oxygen Delivery Method Nasal Cannula Weight: 154 lb 12.796 oz Body Mass Index (BMI) 25.7 Intake & Output: Intake and Output for Last 24 Hours 07/04/23 07/05/23 07/06/23 23:59 23:59 23:59 Intake Total 50 / 50 3750.92 / 3750.92 150 / 150 Output Total 1550 / 1550 650 / 650 Balance 50 / 50 2200.92 / 2200.92 -500 / -500 Lab / Micro Data 07/06/23 06:11 07/06/23 06:11 Labs: Laboratory Results - last 24 hr 07/05/23 13:45: MRSA (PCR) Negative 07/06/23 06:11: WBC 3.7 L, RBC 2.80 L, Hgb 7.0 L, Hct 24.4 L, MCV 87.1, MCH 25.0 L, MCHC 28.7 L, RDW Std Deviation 59.0 H, RDW Coeff of Vahid 18.4 H, Plt Count 84 L, MPV 10.0, Immature Gran % (Auto) 1.100 H, Neut % (Auto) 63.8, Lymph % (Auto) 23.5, [place] % (Auto) 11.3 H, Eos % (Auto) 0.0, Baso % (Auto) 0.3, Absolute Neuts (auto) 2.4, Absolute Lymphs (auto) 0.87, Nucleated RBC % 0, Sodium 141, Potassium 3.9, Chloride 112 H, Carbon Dioxide 20.0 L, Anion Gap 9, BUN 45 H, Creatinine 1.49 H, Estim Creat Clear Calc 28.45, Est GFR (MDRD) Af Amer 44 L, Est GFR (MDRD) Non-Af 36 L, BUN/Creatinine Ratio 30.2 H, Glucose 92, Calcium 8.0 L, Phosphorus 3.5, Magnesium 2.3, Total Bilirubin 0.60, AST 23, ALT 25, Alkaline Phosphatase 77, Total Protein 6.4, Albumin 2.1 L, Globulin 4.3 H, Albumin/Globulin Ratio 0.5 L Micro: Microbiology 06/30/23 16:43 Blood Culture (Wb) - Anticubital Left Bacteria Detection (PCR) - Final Strep not Strep pneumo 06/30/23 16:43 Blood Culture (Wb) - Anticubital Left Blood Culture - Final Streptococcus dysgalactiae equ 06/30/23 17:04 Blood Culture (Wb) - Anticubital Right Blood Culture - Final No growth in 5 days. 07/05/23 16:45 Stool Stool Occult Blood (EMPERATRIZ) - Final 07/05/23 08:21 Mucosa - Nasopharyngeal Coronavirus COVID-19 PCR - Final 07/05/23 08:21 Mucosa - Nasopharyngeal Respiratory Panel (PCR) - Final 07/03/23 06:55 Blood Culture (Wb) - Anticubital Left Blood Culture - Preliminary No growth in 48 hours. 06/30/23 18:43 Urine, Clean Catch Urine Culture - Final Escherichia coli 06/30/23 12:27 Nasal Secretion SARS-CoV-2 & FLU Antigen (Rapid) - Final Physical Exam Const alert, oriented x3 and no apparent distress Constitutional Narrative: frail General Appearance: cooperative HEENT normocephalic and head/scalp atraumatic Mouth: dry mucous membranes Eyes PERRL and EOMs intact bilaterally Neck no lymphadenopathy and supple Lymph Lymphatic: no lymphadenopathy noted, no lymphedema noted and lymphedema Resp normal respiratory effort, normal air movement and clear to auscultation bilaterally Cardio regular rate, regular rhythm, S1 normal heart sound, S2 normal heart sound and no murmurs GI normal to inspection, nondistended, normoactive bowel sounds, soft to palpation, non-tender and non-distended Extremity normal capillary refill, no clubbing, cyanosis or edema and no calf tenderness Skin General Skin Exam: no breakdown and turgor normal Neuro CN's II-XII intact bilaterally, no focal motor deficits, no sensory deficits noted and deep tendon reflexes 2+ bilaterally Motor Exam: strength 5/5 throughout and general weakness Psych thought process normal and cooperative Psych Narrative: frail Assessment & Plan Assessment/Plan (1) Aspiration pneumonia: (2) Bilateral hydronephrosis: (3) MIKE (acute kidney injury): PLAN: Plan #Probable Aspiration pneumonia * on IV vancomycin and zosyn * sputum culture pending * CXR was unremarkable * speech therapy on board. Will benefit from modified barium swallow * on 2L of oxygen. Titrate oxygen to maintain sats >90% * #Afib * patient noted to be tachycardic and in afib. * has no history of afib. * EKG showed afib with HR of 105. * currently NPO * will give cardizem bolus and see if it improves. If not, will start cardizem drip * start on heparin drip * #Bilateral hydronephrosis * as per CT abdomen and pelvis. Renal USG showed no evidence of obstruction * Cortés catheter insrted * #MIKE on CKD IIIB * losartan and lasix on hold * being hydrated with IVF * will monitor Cr * #Anemia: hb is 7 toay. Will repeat Hb as Hb was 8.2 yesterday. Transfuse if Hb <7 #Generalised weakness and debility * PT.OT On board. Fall precautions * #strep dysagalactiae bacteremia * 2 out of 2 blood cultures positive * repeat blood cultures negative so far * 2D echo showed EF of 60% with no vegetations and normal LV function, as well as moderate aortic stenosis * D on board * On iV * #Pancytopenia * resolved. Will monitor * #Moderate aortic valve stenosis * as per 2D echo * to follow up with cardiology on outpatient basis * #Dementia * also had encephalopathy on admission, thought to be toxic vs metabolic encephalopathy * CT of the brain were unremarkable * improving * PT.OT on board. Will monitor * #Hypothyroidism: TSH WNL. Synthroid stopped as she had not been taking it at home #Hypertension: BP meds held due to patient being NPO. IV hydralazine prn #History of subarachnoid hemorrhage: s/p coiling. Stable #Seizure disorder: on vimpat 200mg bid PO. NOw on IV vimpat as she is NPO #History of uterine cancer: stable. S/p hysterectomy; cervix is still intatct DVT prophylaxis: start on heparin drip. Charges/Coding Visit Charges Inpatient E&M: 02514 Subs Hosp L3
[2023-07-06 12:46] LABS: Hematocrit 23.5 % (37-47)
--- NOTE | 2023-07-06 13:23 | NURSING ---
CALLED SON, BEATRIZ, UPDATED HIM ON PT STATUS. PT IS CURRENTLY GETTING COOKIE SWALLOW EVAL. PT WILL THEN GO TO [facility] FOR IV CARDIZEM D/T AFIB. SON VOICES UNDERSTANDING AND THANKS NURSE FOR CARE.
[2023-07-06] MEDS: dilTIAZem 25 MG/5 ML Vial 20 MG IV BOLUS (14:39)
--- NOTE | 2023-07-06 14:39 | SP.MBSS_ITS ---
Modified Barium Swallow Patient Information Study Date: 07/06/23 Study Time: 13:30 Direct Billable Minutes: 98 Total Minutes procedure & reportin Diagnosis: Aspiration Pneumonia (J96.0) Referring Physician: Leatha Jerry Reason for Referral: Objectively assess swallow function, assess risk for aspiration, and determine recommendations for least restrictive diet textures and compensatory strategies to improve safety of swallow. Medical History: The patient is a 78-year-old female with PMH including dementia, CHF, aneurysm, hx of tobacco abuse, hx of uterine cancer, HTN, seizures, CKD, subarachnoid hemorrhage (SEE EMR for full PMH). She presented to [facility] ED on 06/30 with generalized weakness and the inability to stand after sitting on the toilet. She was admitted for management of UTI and generalized weakness. Patient was clinically doing much better until the morning on 07/05/2023 when she developed fever, confusion, tachypnea and a rhonchorous sounding cough. Physician is suspecting aspiration PNA. Pt was made NPO. VP COMMUNICATIONS attempted evaluating the patient on , but she was not alert enough for evaluation. Patient seen for bedside swallow evaluation today and recommended to continue NPO prior to MBSS this afternoon. Current Diet Ordered: NPO Dentition: Decay and Missing Teeth Mental Status: Impaired (dementia, frequent repetition to follow simple commands (e.g. sit upright)) Respiratory Status: Oxygenating on Room Air Penetration-Aspiration Scale Penetration-Aspiration Scale: OBJECTIVE ASSESSMENT OF SWALLOW FUNCTION (QUANTITATIVE ? PER TRIAL): PENETRATION / ASPIRATION SCALE (PATE): 1 = does not enter airway 2 = enters airway/above vocal folds/ejected 3 = enters airway/above vocal folds/not ejected 4 = enters airway/contacts vocal folds/ejected 5 = enters airway/contacts vocal folds/not ejected 6 = enters airway/below vocal folds/ejected 7 = enters airway/below vocal folds/not ejected despite effort 8 = enters airway/below vocal folds/no effort VIDEOFLOROSCOPIC SCALE SCORE (PATE): Grade I = aspiration of material that has penetrated into the laryngeal vestibule, intact cough reflex Grade II = aspiration < 10 % of the bolus, intact cough reflex Grade III = aspiration of < 10 % of the bolus, reduced cough reflex or aspiration of > 10 % of the bolus, intact cough reflex Grade IV = aspiration of > 10 % of the bolus, reduced cough reflex Penetration-Aspiration Scale Score Thin Liquid via teaspoon: Result: 7= enters airways/below vocal folds/not ejected despite effort [place] Thick Liquid via teaspoon: Result: 3= enters airways/above vocal folds/not ejected [place] Thick Liquid via teaspoon Trial 2: Result: 5= enters airways/contacts vocal folds/not ejected Honey Thick Liquid via teaspoon: Result: 3= enters airways/above vocal folds/not ejected Pudding via teaspoon: Result: 1= does not enter airway Comment: SILENT post prandial aspiration of residues remaining in the laryngeal vestibule from previous trials 1/4 Cookie: Result: 1= does not enter airway Comment: Portion of cookie was un-chewed and patient brought the un-chewed piece up from vallecula to oral cavity. VP COMMUNICATIONS cued patient to spit out remainder of un-chewed cookie [place] Thick Liquid via large single sip: cup: Result: 7= enters airways/below vocal folds/not ejected despite effort [place] Thick Liquid via small single sip: cup: Result: 5= enters airways/contacts vocal folds/not ejected Comment: Cued cough and re-swallow after weak, reflexive cough - somewhat effective Honey Thick Liquid via small single sip: cup: Result: 2= enter airway/above vocal folds/ejected Honey Thick Liquid via small single sip: cup Trial 2: Result: 1= does not enter airway Oral Phase Labial Seal: No Labial Escape Tongue Control During Bolus Hold: Posterior escape of less than half of bolus Bolus Preparation/Mastication: Disorganized chewing/mashing with solid pieces of bolus unchewed Bolus Transport/Lingual Motion: Delayed initiation of tongue motion Oral Residue: Residue collection on oral structures Pharyngeal Phase Initiation of Pharyngeal Swallow: Bolus head in pyriforms Soft Palate Elevation: No bolus between soft palate and pharyngeal wall Laryngeal Elevation: Partial superior movement thyroid cart/partial apprx aryt- epig petiole Anterior Hyoid Excursion: Partial anterior movement Epiglottic Movement: Partial inversion Laryngeal Vestibule Closure at Height of Swallow: Incomplete; narrow column of air/contrast in laryngeal vestibule Pharyngeal Stripping Wave: Present - diminished Pharyngoesophageal Segment Opening: Parital distension and partial duration; parital obstruction of flow Tongue Base Retraction: Wide column of contrast between tongue base & post. pharyngeal wall Pharyngeal Residue: Majority of contrast within or on pharyngeal structures (Cookie) Esophageal Phase Esophageal Clearance: Esophageal retention w/ retrograde flow below pharyngoesophageal seg. Diagnosis/Impression Diagnosis: Moderate-severe oropharyngeal dysphagia (R13.12) Impression: The oral phase is primarily marked by... -Decreased bolus control with <1/2 of thin by tsp bolus spilling posteriorly to the trachea prior to swallow onset resulting in aspiration before the swallow. -Decreased mastication of cookie with portion of cookie un-chewed. Patient unable to clear un-chewed piece from vallecula and VP COMMUNICATIONS cued patient to spit the un-chewed piece out due to concerns for the patient choking. The pharyngeal phase is primarily marked by... -Decreased airway closure during the swallow due to little anterior hyoid excursion, partial epiglottic inversion, and decreased laryngeal elevation. -Severely decreased tongue base retraction, mild-moderately decreased UES opening/duration, and poor pharyngeal stripping wave with resulting mild-severe pharyngeal residues after the swallow. Pharyngeal residue increased with thicker viscosities. -Aspiration of thin liquids before the swallow with weak, ineffective cough reflex. Post prandial SILENT aspiration observed during pudding trial, likely from trace residues of nectar thick and honey thick trials remaining in the laryngeal vestibule after the swallow. SEE PAS Scores above for further details regarding laryngeal penetration and aspiration. Recommendations Diet: Mechanical Soft Textures (Minced and Moist Textures (IDDSI Level 5)) and Honey-thick Liquids Comment: Intermittent cough and re-swallow, especially if vocal quality sounds wet Compensatory Strategies: Small Bites, Small Sips, Slow Rate, Alternate bites/solids and sips/liquids, Sitting upright and Remain sitting upright for 30 minutes after PO intake Supervision: 1:1 Close Supervision Recommend Repeat Modified Barium Swallow: Yes (2-4 weeks after implementation of oropharyngeal exercise program (as patient is able)) Need for Skilled Speech Therapy Services: Yes Comment: Train patient, family, and staff in recommended diet textures and aspiration precautions. Train patient in oropharyngeal exercise program as able (e.g. effortful swallows, CTAR, lingual resistance, Yawn stretch, Zoe). Education Completed: 1. Described result of evaluation. and 7. Pt requires further education on strategies & risks. Status Active ST Patient: Active Contact Information [facility] Speech Therapy:: Ingrid William M.A. CCC-VP COMMUNICATIONS Speech-Language Pathologist [facility] [id number] [place] [address] [email or web address] [phone]
[2023-07-06] MEDS: Lactated Ringers 1,000 ML 70 ML IV (14:41)
[2023-07-06] MEDS: HEPARIN/D5w 25,000 UNITS 25,000 UNITS/250 ML IV.SOLN. 10 UNITS CONT INF (14:46)
[2023-07-06 16:36] LABS: International Normalized Ratio 1.4; Prothrombin Time (Protime)PT. 17.2 SECONDS (11.7-14.9)
[2023-07-06 16:37] LABS: Partial Thromboplast Time 49.1 Seconds (24.1-36.2)
--- NOTE | 2023-07-06 17:02 | PCM.PN.ID ---
Physical Exam Narrative Feeling ok, some cough and dyspnea, no fever Const alert and no apparent distress General Appearance: cooperative Resp Auscultation: rhonchi Cardio regular rate and regular rhythm GI soft to palpation, non-tender and non-distended Skin no rashes or lesions noted ID ID: Route of nutrition/ use of supplements: [] Nutritional Intake: [] IV Site: [] Cortés Catheter: [] Assessment & Plan Assessment/Plan (1) UTI (urinary tract infection): (2) Generalized weakness: (3) Toxic metabolic encephalopathy: PLAN: Recurrent aspiration. Will narrow to unasyn. Plan on po augmentin if taking po at discharge. Will follow (4) Bacteremia due to Streptococcus:
[2023-07-06 21:47] LABS: Partial Thromboplast Time 57.5 Seconds (24.1-36.2)
--- NOTE | 2023-07-06 23:00 | EX.PCM.CON.G ---
HPI Consult Data Date of Consult: 07/06/23 HPI Narrative Reason for Consultation: Anemia HPI Narrative: JUAREZ CASTILLO, is a 78 F who presented the emergency department at [facility] on 06/30/2023 with generalized weakness and the inability to stand after sitting on the toilet. Family had left by the time I evaluated her in the emergency department however they reported to the emergency department physician that she went to the bathroom and sat on the toilet but then was too weak to stand. Her son had to help her get off the toilet which is very atypical for her as typically she can basically care for herself. They also noted she was having some more confusion than her baseline so they called the squad to bring her in. They denied her having any recent illnesses sick contacts or falls or trauma. Evidently her recently. She tells me it was May 15 but was not able to remember the year and she is currently living with her son and [id number]. She herself denied any recent illnesses and stated she felt well until last evening when she began to feel weak. Other than that she was not able to give me much information however she denies any upper respiratory symptoms, cough, fever, or chills. I was called to evaluate her because hemoglobin has been dropping. She is also noted to be thrombocytopenic. She is on anticonvulsant medications. She has no pre-existing history of liver disease. [facility] Medical History Aneurysm Arthritis CHF (congestive heart failure) Dementia Former smoker History of tobacco abuse History of uterine cancer HTN (hypertension) Hypothyroidism Iron deficiency anemia Kidney disease Migraines Myocardial infarct Stage 3b chronic kidney disease Subarachnoid hemorrhage Thrombocytopenia Urinary incontinence Vitamin D deficiency Home Medications atorvastatin 40 mg tablet 40 mg PO DAILY cholesterol 06/30/23 [History Last Taken Unknown] ferrous gluconate 324 mg (37.5 mg iron) tablet 324 mg PO DAILY supplement 06/30/23 [History Last Taken Unknown] furosemide 20 mg tablet 20 mg PO DAILY diuresis 06/30/23 [History Last Taken Unknown] losartan 50 mg tablet 50 mg PO DAILY bp 06/30/23 [History Last Taken Unknown] oxybutynin chloride 5 mg tablet,extended release 24 hr 5 mg PO DAILY overactive bladder 06/30/23 [History Last Taken Unknown] potassium chloride 10 mEq capsule,extended release 10 meq PO BID supple 06/30/23 [History Last Taken Unknown] Petrolatum 33% [Eucerin Eqivalent] 1 applic topical BID ##0 07/03/23 [Rx Last Taken Unknown] amlodipine 10 mg tablet 10 mg PO DAILY #0 tabs 07/03/23 [Rx Last Taken Unknown] cephalexin 500 mg capsule 500 mg PO TID #14 caps 07/03/23 [Rx Last Taken Unknown] lacosamide 100 mg tablet (Vimpat) 200 mg (2 x 100 mg) PO BID #0 tabs 07/03/23 [Rx Last Taken Unknown] sennosides 8.6 mg-docusate sodium 50 mg tablet (Stool Softener-Stimulant Laxative) 2 tab PO BID PRN PRN Constipation #0 tabs 07/03/23 [Rx Last Taken Unknown] Allergy/AdvReac Type Severity Reaction Status Date / Time No Known Allergies Allergy Verified 03/10/15 21:30 Family History (Updated 06/30/23 @ 17:[address] Leatha Jerry DO) Other Cancer Diabetes Heart disease Surgical History History of hysterectomy Social History (Updated 06/30/23 @ 17:[address] Leatha Jerry DO) household members: family housing: house Smoking Status: Former smoker alcohol intake: never substance use type: does not use ROS Constitutional Constitutional: Reports fatigue and weakness; Denies anorexia, change in weight, chills, fever(s), malaise, night sweats or other Eyes Eyes: Denies blurry vision, change in eye color, change in vision, discharge from eye(s), double vision, erythema, eye pain, loss of vision or other ENT HEENT: Denies abnormal hearing, dysphagia, ear pain, epistaxis, headache(s), hearing loss, nasal congestion, nasal discharge, post nasal drip, sinus pressure, sore throat or other Cardiovascular Cardiovascular: Denies chest pain, claudication, dyspnea on exertion, edema, lightheadedness, orthopnea, palpitations, paroxysmal nocturnal dyspnea, rapid heart rate, syncope or other Respiratory/Chest Respiratory/Chest: Denies cough, dyspnea, excessive phlegm production, hemoptysis, productive cough, shortness of breath at rest, shortness of breath with exertion, wheezing or other Gastrointestinal Gastrointestinal: Denies abdominal pain, coffee ground emesis, constipation, diarrhea, dyspepsia, hematemesis, hematochezia, loose stools, melena, nausea, vomiting or other Genitourinary Genitourinary: Reports urinary frequency and urinary incontinence; Denies burning urination, difficulty urinating, dysuria, hematuria, nocturia, urinary hesitancy, urinary urgency or other Musculoskeletal Musculoskeletal: Denies arthralgias, back pain, joint pain, joint stiffness, joint swelling, myalgias, neck pain or other Neurologic Neurologic: Reports abnormal gait, confusion and other Details: Baseline memory impairment ; Denies abnormal speech, disequilibrium, dizziness, focal weakness, headache(s), numbness, paresthesias, seizure-like activity, seizures, syncope, tingling or tremor(s) Psychiatric Psychiatric: Denies anxiety, depression, homicidal ideation, suicidal ideation or other Endocrine Endocrinology: Denies change in body appearance, cold intolerance, excessive sweating, heat intolerance, polydipsia, polyuria or other Hematologic/Lymphatic Hematologic/Lymphatic: Denies anemia, easy bleeding, easy bruising, lymphadenopathy or other Allergic/Immunologic Allergic/Immunologic: Denies rhinitis, hives, eczemia, asthma or other Lab / Micro Data 07/07/23 02:41 07/07/23 02:41 Labs: Laboratory Results - last 24 hr 07/06/23 12:35: Blood Type A NEGATIVE, Antibody Screen NEGATIVE, Crossmatch See Detail 07/06/23 16:20: PT 17.2 H, INR 1.4, APTT 49.1 H 07/06/23 20:53: APTT 57.5 H 07/07/23 02:41: WBC 2.3 L, RBC 2.70 L, Hgb 6.8 L, Hct 22.6 L, MCV 83.7, MCH 25.2 L, MCHC 30.1 L, RDW Std Deviation 56.2 H, RDW Coeff of Vahid 18.4 H, Plt Count 89 L, MPV 10.0, Immature Gran % (Auto) 1.700 H, Neut % (Auto) 44.2 L, Lymph % (Auto) 41.0, Sherman % (Auto) 13.1 H, Eos % (Auto) 0.0, Baso % (Auto) 0.0, Absolute Neuts (auto) 1.0 L, Absolute Lymphs (auto) 0.94, Nucleated RBC % 0, APTT 55.4 H, Sodium 144, Potassium 3.6, Chloride 115 H, Carbon Dioxide 22.0, Anion Gap 7, BUN 40 H, Creatinine 1.27 H, Estim Creat Clear Calc 33.38, Est GFR (MDRD) Af Amer 53 L, Est GFR (MDRD) Non-Af 43 L, BUN/Creatinine Ratio 31.5 H, Glucose 100, Calcium 8.0 L 07/07/23 08:45: APTT 47.3 H Micro: Microbiology 07/05/23 08:37 Blood Culture (Wb) - Right Hand Blood Culture - Preliminary No growth in 48 hours. 07/05/23 08:30 Blood Culture (Wb) - Anticubital Right Blood Culture - Preliminary No growth in 48 hours. 07/05/23 09:45 Urine, Catheterized Urine Culture - Final Culture exhibits no growth. Assessment & Plan Assessment/Plan (1) UTI (urinary tract infection): (2) Generalized weakness: (3) Toxic metabolic encephalopathy: (4) Bacteremia due to Streptococcus: (5) Fever: (6) Tachypnea: (7) MIKE (acute kidney injury): (8) Pancytopenia: (9) Constipation: (10) Aspiration pneumonia: (11) Bilateral hydronephrosis: PLAN: Plan Differential diagnosis for iron deficiency anemia in the setting of microcytic anemia is Cruz erosions, gastric antral vascular ectasia, celiac disease, ANCA associated disease. She should undergo an upper endoscopy to evaluate upper GI tract and possibly colonoscopy. She was explained alternatives, risk and benefits include not withstanding bleeding, infection, sepsis, perforation, need for return to . She have an ASA of 3. -ia of chronic disease -Patient had been on home iron previously from the note I found back in November 2022 we will hold for now -We will recommend a repeat CBC be done after she has completed antibiotics to assess for correction if not improved would refer to hematology for work-up to include exclusion of myelofibrosis -Anticipate patient may need bone marrow biopsy Charges/Coding Multi Select Codes Visit Charges Visit Charges: 66014 Init Hosp L3
[2023-07-06] MEDS: Ampicillin/Sulbactam 3 GM in 0.9% Normal Saline (100mL MB+) 100 ML IV (23:11)
[2023-07-07] VITALS (14 sets, daily range): BP systolic 106–154; BP diastolic 65–89; PULSE 72–102; RESP 16–18; TEMP 35.9–36.7; O2SAT 89–100; BMI 25.7
--- NOTE | 2023-07-07 | GASB_PTH ---
PATIENT: JUAREZ CASTILLO LOC: [facility] U#:[id number] AGE/SX: 78/F ROOM: [facility] RE06/30/[address]: Dr. Missy Staley MD : 1945 BED: 1 DIS: 07/12/2023 SPEC #: [id number] RECD: 07/07/23 18:14 STATUS: EMILY PEREYRA #: [id number] SAMM: 07/07/23 00:[address]: Melvin Narayan DEPT: SURGICAL PATHOLOGY RECD BY: Arvind Israel ENTERED: 07/08/23 09:20 SP TYPE: Gastric Bx OTHR DR: MD Dr. Leatha Brewer DO Dr. Nana Yaa Koram, MD Dr. Robert Leininger, MD Tissues: Gastric mucous membrane Procedures: Surgery Specimen Level IV Comments: @ Ordering doctor for SUIV edited from to @ by KENDRA at 07/08/23 1333 @ Submitting doctor edited from to @ by RGOOD at 07/08/23 1333 HEADER OPERATION: EGD PRE-OP DIAGNOSIS: GI bleed TISSUE SUBMITTED: Gastric body MICROSCOPIC DIAGNOSIS Gastric body, biopsy: Chronic gastritis. See comment. AM:london 07/09/2023 COMMENT The results of immunohistochemistry for Helicobacter pylori will be reported separately ([id number]). MICROSCOPIC DESCRIPTION Slides are reviewed. GROSS DESCRIPTION Received in fixative is one container labeled with the patient's name and designated gastric body. The specimen consists of multiple irregular fragments of light penn soft tissue that in aggregate measure 1.2 x 0.2 x 0.1 cm. The specimen is totally submitted in one cassette. / JOVAN:london 07/08/2023 TC:3 CPT: 39591
[2023-07-07 02:53] LABS: Absolute Lymphocyte Count 0.94 X10^3/uL (0.83-4.51); Hematocrit 22.6 % (37-47); Hemoglobin 6.8 g/dL (12.0-15.0); Lymphocyte # 0.94 X10^3/ul (0.83-4.51); Mean Corp Hgb Conc 30.1 g/dL (32-36); Mean Corpuscular Hgb 25.2 pg (27.0-32.0); Mean Corpuscular Volume 83.7 fL (81-99); Monocyte% 13.1 % (0-10); NRBC Flagged by Analyzer 0 % (0-5); Neutrophil # 1.01 X10^3/uL (2.7-7.7); Neutrophil % 44.2 % (47-70); POSITIVE COUNT YES; Platelet Count 89 K/mm3 (150-450); RBC Distribution Width CV 18.4 % (11.6-14.6); RBC Distribution Width SD 56.2 fl (35.1-43.9); White Blood Count 2.3 K/mm3 (4.4-11.0)
[2023-07-07 03:05] LABS: Partial Thromboplast Time 55.4 Seconds (24.1-36.2)
[2023-07-07 03:16] LABS: Anion Gap 7 (5-15); BUN 40 mg/dL (7-18); BUN/Creat Ratio 31.5 RATIO (10-20); Chloride 115 mmol/L (98-107); Creatinine, Serum 1.27 mg/dL (0.55-1.02); EST Glomerular Filtration Rate 43 mL/min (>60); Est Glom Filt Rate - Afr Amer 53 mL/min (>60); Estimated Creatinine Clearance 33.38 ml/min; Glucose 100 mg/dL (74-106); Potassium 3.6 mmol/L (3.5-5.1); Sodium Level 144 mmol/L (136-145)
[2023-07-07] MEDS: Menthol/Lanolin/Calamine/Znox 113 GM Tube 1 APPLIC TOPICAL ×3 (07:39→22:41)
[2023-07-07] MEDS: Ampicillin/Sulbactam 3 GM in 0.9% Normal Saline (100mL MB+) 100 ML IV ×2 (07:40→13:15)
[2023-07-07 09:17] LABS: Partial Thromboplast Time 47.3 Seconds (24.1-36.2)
[2023-07-07] MEDS: Ferrous Gluconate 324 MG Tablet PO (09:23)
[2023-07-07] MEDS: Petrolatum 33% Tube 1 APPLIC TOPICAL ×2 (09:23→22:41)
[2023-07-07] MEDS: 0.9% Saline Lock 10 ML Syringe IV (10:27)
[2023-07-07] MEDS: Pantoprazole Sodium 40 MG in 0.9% Normal Saline (100mL MB+) 100 ML 330 MG IV ×2 (10:27→21:56)
--- NOTE | 2023-07-07 11:42 | CASEMGMT ---
Patient's pre-cert is good through Thu-18. Orly Morgan ASSISTANT CLINICAL DIRECTOR SENIOR INFORMATION SECURITY ANALYST
[2023-07-07] MEDS: Lactated Ringers 1,000 ML 70 ML IV (14:53)
--- NOTE | 2023-07-07 15:54 | PN_ITS ---
Subjective Subjective Patient seen and examined. She had no complaints. Review of systems is otherwise negative. She has remained hemodynamically stable. She developed afib yesterday and so was transferred to the PCU. She was given a cardizem bolus and started on heparin drip. Hb is down to 6.8 today. Objective Data Objective Data Vital Signs: Vital Signs Temp Pulse Resp BP Pulse Ox O2 Del Method O2 Flow Rate 97.6 F L 84 18 154/83 H 94 Nasal Cannula 3 07/07/23 14:51 07/07/23 14:51 07/07/23 14:51 07/07/23 14:51 07/07/23 14:51 07/07/23 14:51 07/07/23 14:51 FiO2 100 07/05/23 14:40 Oxygen Flow Rate (L/min) 3 Oxygen Delivery Method Nasal Cannula Weight: 154 lb 12.796 oz Body Mass Index (BMI) 25.7 Intake & Output: Intake and Output for Last 24 Hours 07/05/23 07/06/23 07/07/23 23:59 23:59 23:59 Intake Total 3750.92 / 3750.92 1325 / 1325 2030.83 / 2030.83 Output Total 1550 / 1550 650 / 650 1200 / 1200 Balance 2200.92 / 2200.92 675 / 675 830.83 / 830.83 Lab / Micro Data 07/07/23 02:41 07/07/23 02:41 Labs: Laboratory Results - last 24 hr 07/06/23 12:35: Blood Type A NEGATIVE, Antibody Screen NEGATIVE, Crossmatch See Detail 07/06/23 16:20: PT 17.2 H, INR 1.4, APTT 49.1 H 07/06/23 20:53: APTT 57.5 H 07/07/23 02:41: WBC 2.3 L, RBC 2.70 L, Hgb 6.8 L, Hct 22.6 L, MCV 83.7, MCH 25.2 L, MCHC 30.1 L, RDW Std Deviation 56.2 H, RDW Coeff of Vahid 18.4 H, Plt Count 89 L, MPV 10.0, Immature Gran % (Auto) 1.700 H, Neut % (Auto) 44.2 L, Lymph % (Auto) 41.0, Perkins % (Auto) 13.1 H, Eos % (Auto) 0.0, Baso % (Auto) 0.0, Absolute Neuts (auto) 1.0 L, Absolute Lymphs (auto) 0.94, Nucleated RBC % 0, APTT 55.4 H, Sodium 144, Potassium 3.6, Chloride 115 H, Carbon Dioxide 22.0, Anion Gap 7, BUN 40 H, Creatinine 1.27 H, Estim Creat Clear Calc 33.38, Est GFR (MDRD) Af Amer 53 L, Est GFR (MDRD) Non-Af 43 L, BUN/Creatinine Ratio 31.5 H, Glucose 100, Calcium 8.0 L 07/07/23 08:45: APTT 47.3 H Micro: Microbiology 07/05/23 08:37 Blood Culture (Wb) - Right Hand Blood Culture - Preliminary No growth in 48 hours. 07/05/23 08:30 Blood Culture (Wb) - Anticubital Right Blood Culture - Preliminary No growth in 48 hours. 07/05/23 09:45 Urine, Catheterized Urine Culture - Final Culture exhibits no growth. 06/30/23 16:43 Blood Culture (Wb) - Anticubital Left Bacteria Detection (PCR) - Final Strep not Strep pneumo 06/30/23 16:43 Blood Culture (Wb) - Anticubital Left Blood Culture - Final Streptococcus dysgalactiae equ 06/30/23 17:04 Blood Culture (Wb) - Anticubital Right Blood Culture - Final No growth in 5 days. 07/05/23 16:45 Stool Stool Occult Blood (EMPERATRIZ) - Final 07/05/23 08:21 Mucosa - Nasopharyngeal Coronavirus COVID-19 PCR - Final 07/05/23 08:21 Mucosa - Nasopharyngeal Respiratory Panel (PCR) - Final 07/03/23 06:55 Blood Culture (Wb) - Anticubital Left Blood Culture - Prelimi nary No growth in 48 hours. 06/30/23 18:43 Urine, Clean Catch Urine Culture - Final Escherichia coli 06/30/23 12:27 Nasal Secretion SARS-CoV-2 & FLU Antigen (Rapid) - Final Physical Exam Const alert, oriented x3, no apparent distress and average body habitus Constitutional Narrative: frail General Appearance: cooperative Orientation / Consciousness: confused, disoriented and lethargic HEENT normocephalic and head/scalp atraumatic Eyes PERRL and EOMs intact bilaterally Neck no lymphadenopathy and supple Lymph Lymphatic: no lymphadenopathy noted, no lymphedema noted and lymphedema Resp clear to auscultation bilaterally Resp Narrative: mildly diminished breath sounds bibasally, few crackles. on 3L of oxygen. Auscultation: rhonchi; Negative for rales or wheezes Cardio regular rate, regular rhythm, S1 normal heart sound, S2 normal heart sound, no rub, no gallops and no clicks Cardio Narrative: 3-4 out of 6 systolic murmur loudest at right upper sternal border radiates to bilateral carotids GI normal to inspection, nondistended, normoactive bowel sounds, soft to palpation, non-tender and non-distended Extremity normal capillary refill, no clubbing, cyanosis or edema and no calf tenderness Skin General Skin Exam: no breakdown and turgor normal Neuro CN's II-XII intact bilaterally, moves all extremities, no focal motor deficits, no sensory deficits noted and deep tendon reflexes 2+ bilaterally Speech: Negative for speech normal Motor Exam: strength 5/5 throughout and general weakness Psych thought process normal and cooperative Psych Narrative: frail Appearance: appropriate Assessment & Plan Assessment/Plan (1) Aspiration pneumonia: (2) Bilateral hydronephrosis: (3) MIKE (acute kidney injury): PLAN: Plan #Probable Aspiration pneumonia * antibiotics narrowed down to unasyn. To switch to PO augmentin at discharge * blood cultures show no growth * CXR was unremarkable * speech therapy on board. modified barium swallow showed moderate to severe oropharyngeal dysphagia. On mechanical soft textures and honey thick liquids. * on 2L of oxygen. Titrate oxygen to maintain sats >90% * * #Dysphagia: modified barium swallow as above. On mechanical soft textured with honey thick liquid diet. #Afib * still in afib. * rate controlled * received a cardizem bolus yesterday. HR is 84. * Start on PO metoprolol 25mg bid. * has no history of afib. * check troponin series * 2D echo showed EF of 60% and normal LV systolic function as well as mildly enlarged left atrium (07/01/2023) * heparin drip stopped due to anemia * * #Bilateral hydronephrosis * as per CT abdomen and pelvis. Renal USG showed no evidence of obstruction * Cortés catheter insrted * #MIKE on CKD IIIB * losartan and lasix on hold * being hydrated with IVF * will monitor Cr * #Anemia: Hb today is 6.8. Heparin drip stoppe. Started on IV PPI and GI co nsulted. Iron panel ordered #Generalised weakness and debility * PT.OT On board. Fall precautions * #strep dysagalactiae bacteremia * 2 out of 2 blood cultures positive * repeat blood cultures negative so far * 2D echo showed EF of 60% with no vegetations and normal LV function, as well as moderate aortic stenosis * D on board * On iV unasyn * #Pancytopenia * platelets are 2.9, with hb of 6.8 and platelets of 89. * platelets have started improving. Will monitor. * * #Moderate aortic valve stenosis * as per 2D echo * to follow up with cardiology on outpatient basis * #Dementia * also had encephalopathy on admission, thought to be toxic vs metabolic encephalopathy * CT of the brain were unremarkable * improving * PT.OT on board. Will monitor * #Hypothyroidism: TSH WNL. Synthroid stopped as she had not been taking it at home #Hypertension: BP meds held due to patient being NPO. IV hydralazine prn #History of subarachnoid hemorrhage: s/p coiling. Stable #Seizure disorder: on vimpat 200mg bid PO. NOw on IV vimpat as she is NPO #History of uterine cancer: stable. S/p hysterectomy; cervix is still intatct DVT prophylaxis: SCDs. heparin drip discontinued. Charges/Coding Visit Charges Inpatient E&M: 02920 Subs Hosp L3
--- NOTE | 2023-07-07 16:30 | IMM_PTH ---
PATIENT: JUAREZ CASTILLO LOC: [facility] U#:[id number] AGE/SX: 78/F ROOM: [facility] RE06/30/[address]: Dr. Missy Staley MD : 1945 BED: 1 DIS: 07/12/2023 SPEC #: [id number] RECD: 07/08/23 13:32 STATUS: EMILY REQ #: [id number] SAMM: 07/07/23 16:[address]: Melvin Narayan DEPT: IMMUNOHISTOCHEMISTRY RECD BY: Nia Chao ENTERED: 07/08/23 13:33 SP TYPE: IMMUNO OTHR DR: MD Dr. Leatha Brewer DO Dr. Nana Yaa Koram, MD Dr. Robert Leininger, MD Tissues: Stomach, NOS Procedures: H Pylori (initial) PHYSICIAN & INSTITUTION [place] [address] SPECIMEN INFORMATION: Tissue Source: Gastric body Clinical Info: GI bleed Specimen Number: [id number] CPT code: 88122 METHODOLOGY: Deparaffinized sections of prefer/formalin-fixed tissue or PAP/DQ stained slides are incubated with monoclonal/polyclonal antibodies/oligonucleotide probes. Localization is made via biotin free immunoperoxidase method. Appropriate controls are performed and reacted as expected. Results on target cell population are indicated in the following table: RESULTS: ANTIBODY / CLONE RESULT H Pylori (polyclonal) negative These tests were developed and their performance characteristics determined by [facility]. They may not have been cleared or approved by the U.S. Food and Drug Administration. The FDA has determined that such clearance or approval is not necessary. The above immunohistochemical/dualISH markers are ordered and reviewed by the Pathologist. INTERPRETATION: Gastric body, biopsy: Negative for Helicobacter pylori organisms. AM:london 07/09/2023
--- NOTE | 2023-07-07 16:37 | OP.EGD_ITS ---
Patient Name: Aide Daniels Procedure Date: 07/07/2023 4:17 PM Date of : 1945 Age: 78 Procedure: Upper GI endoscopy Indications: Iron deficiency anemia, Dysphagia Providers: Melvin Narayan DO Medicines: Monitored Anesthesia Care Patient Profile: This is a 78 year old female. Refer to note in patient chart for documentation of history and physical. Patient has symptoms of dysphagia with both liquids and solids. Complications: No immediate complications. Procedure: Pre-Anesthesia Assessment: - Prior to the procedure, a History and Physical was performed, and patient medications and allergies were reviewed. The patient is competent. The risks and benefits of the procedure and the sedation options and risks were discussed with the patient. All questions were answered and informed consent was obtained. Patient identification and proposed procedure were verified by the physician in the pre-procedure area. Mental Status Examination: alert and oriented. Airway Examination: normal oropharyngeal airway and neck mobility. Respiratory Examination: clear to auscultation. CV Examination: normal. Prophylactic Antibiotics: The patient does not require prophylactic antibiotics. Prior Anticoagulants: The patient has taken no anticoagulant or antiplatelet agents. ASA Grade Assessment: II - A patient with mild systemic disease. After reviewing the risks and benefits, the patient was deemed in satisfactory condition to undergo the procedure. The anesthesia plan was to use monitored anesthesia care (MAC). Immediately prior to administration of medications, the patient was re-assessed for adequacy to receive sedatives. The heart rate, respiratory rate, oxygen saturations, blood pressure, adequacy of pulmonary ventilation, and response to care were monitored throughout the procedure. The physical status of the patient was re-assessed after the procedure. After obtaining informed consent, the endoscope was passed under direct vision. Throughout the procedure, the patient's blood pressure, pulse, and oxygen saturations were monitored continuously. The Endoscope was introduced through the mouth, and advanced to the second part of duodenum. The upper GI endoscopy was accomplished without difficulty. The patient tolerated the procedure well. Scope In: 4:26:22 PM Scope Out: 4:30:04 PM Total Procedure Duration Time 0 hours 3 minutes 42 seconds Findings: The nasopharynx and oropharynx are abnormal. Pooling secretions were noted in the left and right pyriform sinus. The examined esophagus was normal. Localized mild inflammation characterized by erosions and erythema was found in the gastric body. Biopsies were taken with a cold forceps for histology. Verification of patient identification for the specimen was done. Estimated blood loss was minimal. Biopsies were taken with a cold forceps for Helicobacter pylori testing. Verification of patient identification for the specimen was done. Estimated blood loss was minimal. No gross lesions were noted in the first portion of the duodenum. Impression: - The nasopharynx and oropharynx are abnormal. - Pooling secretions were noted in the pyriform sinuses. - Normal esophagus. - Gastritis. Biopsied. - No gross lesions in the first portion of the duodenum. -Speech and swallow evaluation for aspiration Recommendation: - [facility] patient to [facility] for [facility] care. - NPO. - Continue present medications. Procedure Code(s): --- Professional --- 12718, Esophagogastroduodenoscopy, flexible, transoral; with biopsy, single or multiple CPT copyright 2021 [employer]. All rights reserved. The codes documented in this report are preliminary and upon professional fee coder review may be revised to meet current compliance requirements. Melvin Narayan DO 07/07/2023 4:37:21 PM This report has been signed electronically. Number of Addenda: 0 Note Initiated On: 07/07/2023 4:17 PM
--- NOTE | 2023-07-07 16:38 | OP.CCLET_ITS ---
07/07/2023 Zeina Schmidt [address] [place] [address] Re : Upper GI endoscopy procedure for Aide Daniels Dear Dr. Schmidt This procedure was performed on Friday, July 07, 2023. My impressions and recommendations are as follows: Impressions : - The nasopharynx and oropharynx are abnormal. - Pooling secretions were noted in the pyriform sinuses. - Normal esophagus. - Gastritis. Biopsied. - No gross lesions in the first portion of the duodenum. -Speech and swallow evaluation for aspiration Recommendations : - Return patient to [facility] for [facility] care. - NPO. - Continue present medications. My findings are described in the full procedure note, which is enclosed. If I can be of further assistance, please feel free to contact me at . Sincerely, Melvin Narayan, 07/07/2023 4:37:21 PM This report has been signed electronically.
[2023-07-08] VITALS (13 sets, daily range): BP systolic 119–176; BP diastolic 68–80; PULSE 73–96; RESP 18; TEMP 36.3–37.9; O2SAT 90–99
[2023-07-08] MEDS: Ampicillin/Sulbactam 3 GM in 0.9% Normal Saline (100mL MB+) 100 ML IV ×4 (00:14→23:35)
[2023-07-08] MEDS: Lactated Ringers 1,000 ML 70 ML IV (03:26)
[2023-07-08] MEDS: Menthol/Lanolin/Calamine/Znox 113 GM Tube 1 APPLIC TOPICAL ×3 (05:05→23:01)
[2023-07-08 07:07] LABS: Absolute Lymphocyte Count 0.76 X10^3/uL (0.83-4.51); Absolute Neutrophil Count 1.1 X10^3/uL (2.0-7.7); Basophil# 0.01 X10^3/uL; Basophil% 0.5 % (0-1); Eosinophil# 0.01 X10^3/uL; Eosinophils% 0.5 % (0-5); Hemoglobin 7.3 g/dL (12.0-15.0); Lymphocyte # 0.76 X10^3/ul (0.83-4.51); Lymphocyte % 34.5 % (19-41); Mean Corp Hgb Conc 29.2 g/dL (32-36); Mean Corpuscular Volume 85.6 fL (81-99); Mean Platelet Vol. 10.2 fl (6.2-12.0); Monocyte# 0.28 X10^3/uL; Monocyte% 12.7 % (0-10); NRBC Flagged by Analyzer 0 % (0-5); Neutrophil # 1.08 X10^3/uL (2.7-7.7); Neutrophil % 49.1 % (47-70); POSITIVE MORPHOLOGY YES; Platelet Count 105 K/mm3 (150-450); RBC Distribution Width SD 59.7 fl (35.1-43.9); Red Blood Count 2.92 M/mm3 (4.2-5.4); White Blood Count 2.2 K/mm3 (4.4-11.0)
[2023-07-08 07:11] LABS: Differential Indicated SCAN CRITERIA MET
[2023-07-08 07:36] LABS: Anion Gap 4 (5-15); BUN 32 mg/dL (7-18); BUN/Creat Ratio 28.1 RATIO (10-20); Calcium,Total 8.3 mg/dL (8.5-10.1); Chloride 119 mmol/L (98-107); Creatinine, Serum 1.14 mg/dL (0.55-1.02); EST Glomerular Filtration Rate 49 mL/min (>60); Est Glom Filt Rate - Afr Amer 59 mL/min (>60); Estimated Creatinine Clearance 37.19 ml/min; Glucose 92 mg/dL (74-106); Potassium 4.1 mmol/L (3.5-5.1); Sodium Level 148 mmol/L (136-145)
[2023-07-08 08:40] LABS: Reactive Lymphocyte 1+
[2023-07-08] MEDS: Petrolatum 33% Tube 1 APPLIC TOPICAL ×2 (10:52→23:02)
[2023-07-08] MEDS: Ferrous Gluconate 324 MG Tablet PO (10:52)
[2023-07-08] MEDS: Pantoprazole Sodium 40 MG in 0.9% Normal Saline (100mL MB+) 100 ML 330 MG IV ×2 (11:03→23:05)
[2023-07-08] MEDS: Acetaminophen 325 MG Tablet 650 MG PO ×2 (11:04→17:22)
[2023-07-08] MEDS: Metoprolol Tartrate 25 MG Tablet PO ×2 (11:26→23:11)
--- NOTE | 2023-07-08 15:26 | PN_ITS ---
Subjective Subjective Patient seen and examined.She is alert but frail and weak. She denied any active complaints. Unable to do comprehensive review of systems due to her lethargy. She has remained hemodynamically stable and is on 2L of oxygen. Objective Data Objective Data Vital Signs: Vital Signs Temp Pulse Resp BP Pulse Ox O2 Del Method O2 Flow Rate 98.3 F 79 18 119/68 99 Nasal Cannula 2 07/08/23 13:47 07/08/23 13:47 07/08/23 13:47 07/08/23 13:47 07/08/23 13:47 07/08/23 13:47 07/08/23 13:47 FiO2 100 07/05/23 14:40 Oxygen Flow Rate (L/min) 2 Oxygen Delivery Method Nasal Cannula Weight: 154 lb 12.796 oz Body Mass Index (BMI) 25.7 Intake & Output: Intake and Output for Last 24 Hours 07/06/23 07/07/23 07/08/23 23:59 23:59 23:59 Intake Total 1325 / 1325 2140.83 / 2140.83 1921.84 / 1921.84 Output Total 650 / 650 2600 / 2600 450 / 450 Balance 675 / 675 -459.17 / -459.17 1471.84 / 1471.84 Lab / Micro Data 07/08/23 06:31 07/08/23 06:31 Labs: Laboratory Results - last 24 hr 07/08/23 06:31: WBC 2.2 L, RBC 2.92 L, Hgb 7.3 L, Hct 25.0 L, MCV 85.6, MCH 25.0 L, MCHC 29.2 L, RDW Std Deviation 59.7 H, RDW Coeff of Vahid 19.0 H, Plt Count 105 L, MPV 10.2, Immature Gran % (Auto) 2.700 H, Neut % (Auto) 49.1, Lymph % (Auto) 34.5, [place] % (Auto) 12.7 H, Eos % (Auto) 0.5, Baso % (Auto) 0.5, Absolute Neuts (auto) 1.1 L, Absolute Lymphs (auto) 0.76 L, Nucleated RBC % 0, Reactive Lymphocytes 1+, Sodium 148 H, Potassium 4.1, Chloride 119 H, Carbon Dioxide 25.0, Anion Gap 4 L, BUN 32 H, Creatinine 1.14 H, Estim Creat Clear Calc 37.19, Est GFR (MDRD) Af Amer 59 L, Est GFR (MDRD) Non-Af 49 L, BUN/Creatinine Ratio 28.1 H, Glucose 92, Calcium 8.3 L Micro: Microbiology 07/03/23 06:55 Blood Culture (Wb) - Anticubital Left Blood Culture - Final No growth in 5 days. 07/05/23 08:37 Blood Culture (Wb) - Right Hand Blood Culture - Preliminary No growth in 48 hours. 07/05/23 08:30 Blood Culture (Wb) - Anticubital Right Blood Culture - Preliminary No growth in 48 hours. 07/05/23 09:45 Urine, Catheterized Urine Culture - Final Culture exhibits no growth. 06/30/23 16:43 Blood Culture (Wb) - Anticubital Left Bacteria Detection (PCR) - Final Strep not Strep pneumo 06/30/23 16:43 Blood Culture (Wb) - Anticubital Left Blood Culture - Final Streptococcus dysgalactiae equ 06/30/23 17:04 Blood Culture (Wb) - Anticubital Right Blood Culture - Final No growth in 5 days. 07/05/23 16:45 Stool Stool Occult Blood (EMPERATRIZ) - Final 07/05/23 08:21 Mucosa - Nasopharyngeal Coronavirus COVID-19 PCR - Final 07/05/23 08:21 Mucosa - Nasopharyngeal Respiratory Panel (PCR) - Final 06/30/23 18:43 Urine, Clean Catch Urine Culture - Final Escherichia coli 06/30/23 12:27 Nasal Secretion SARS-CoV-2 & FLU Antigen (Rapid) - Final Radiography Diagnostic Testing: Radiology Impression Renal Ultrasound 07/06/23 10:06 IMPRESSION: Mild bilateral caliectasis and extrarenal pelves, without shira hydronephrosis. Electronically Signed: Efren Blackwell MD at 16:23 EDT , Physical Exam Const alert, no apparent distress and average body habitus Constitutional Narrative: frail General Appearance: cooperative Orientation / Consciousness: lethargic HEENT normocephalic and head/scalp atraumatic Mouth: dry mucous membranes Eyes PERRL and EOMs intact bilaterally Eyes Narrative: Conjunctiva are mildly pale bilaterally, no scleral icterus Neck no lymphadenopathy and supple Lymph Lymphatic: no lymphadenopathy noted, no lymphedema noted and lymphedema Resp normal respiratory effort Resp Narrative: mildly diminished breath sounds bibasally, few crackles. on 2L of oxygen. Auscultation: rhonchi; Negative for rales or wheezes Cardio regular rate, regular rhythm, S1 normal heart sound and S2 normal heart sound Cardio Narrative: 3-4 out of 6 systolic murmur loudest at right upper sternal border radiates to bilateral carotids GI normal to inspection, nondistended, normoactive bowel sounds, soft to palpation, non-tender and non-distended Extremity normal capillary refill, no clubbing, cyanosis or edema and no calf tenderness Extremity Narrative: Pedal pulses are 2+ Skin Skin Narrative: Pale, warm to touch General Skin Exam: no breakdown and turgor normal Neuro CN's II-XII intact bilaterally, moves all extremities, no focal motor deficits, no sensory deficits noted and deep tendon reflexes 2+ bilaterally Neuro Narrative: Confused, able to move all extremities, Speech: Negative for speech normal Motor Exam: strength 5/5 throughout and general weakness Psych Psych Narrative: frail Mood & Affect: flat affect Assessment & Plan Assessment/Plan (1) Aspiration pneumonia: (2) Bilateral hydronephrosis: (3) MIKE (acute kidney injury): PLAN: Plan #Probable Aspiration pneumonia * antibiotics narrowed down to unasyn. To switch to PO augmentin at discharge * blood cultures show no growth * CXR was unremarkable * speech therapy on board. modified barium swallow showed moderate to severe oropharyngeal dysphagia. On mechanical soft textures and honey thick liquids. * on 2L of oxygen. Titrate oxygen to maintain sats >90% * * #Acute encephalopathy * etiology is unclear. on IV unasyn due to aspiration pneumona * modified barium swallow as above. On mechanical soft textured with honey thick liquid diet. * tabor had 2 sets of blood cultures which are negative. She is on IV unasyn and ID is on bpoard * she had a CT of the brain July 05 which showed no acute intracranial pathology * She does appear to be dehydrated as a sodium is up to 148. * Hydrated with IV fluids normal saline and monitor for now. Check ammonia level * Get repeat CT of the brain to assess for possible stroke in light of new onset A-fib and patient not on anticoagulation due to anemia. * #Dysphagia: barium swallow results as above. On mechanical soft textures and honey thick liquids. #Afib * still in afib. * rate controlled * Start on PO metoprolol 25mg bid. * has no history of afib. * check troponin series * 2D echo showed EF of 60% and normal LV systolic function as well as mildly enlarged left atrium (07/01/2023) * heparin drip stopped due to anemia * * #Bilateral hydronephrosis * as per CT abdomen and pelvis. Renal USG showed no evidence of obstruction * Cortés catheter in situ * #MIKE on CKD IIIB * losartan and lasix on hold * being hydrated with IVF * will monitor Cr * #Anemia: She had EGD which showed normal esophagus and gastritis. She was on heparin drip for A-fib but this has been discontinued. Hemoglobin today 7.3. #Pancytopenia: WBC is 2.2 with hemoglobin of 7.3 and platelets of 105. This likely due to underlying infection. Will monitor for now. #Generalised weakness and debility * PT.OT On board. Fall precautions * #strep dysagalactiae bacteremia * 2 out of 2 blood cultures positive * repeat blood cultures negative so far * 2D echo showed EF of 60% with no vegetations and normal LV function, as well as moderate aortic stenosis * ID on board * On iV unasyn * * #Moderate aortic valve stenosis * as per 2D echo * to follow up with cardiology on outpatient basis * #Dementia * also had encephalopathy on admission, thought to be toxic vs metabolic encephalopathy * CT of the brain were unremarkable * improving * PT.OT on board. Will monitor * #Hypothyroidism: TSH WNL. Synthroid stopped as she had not been taking it at home #Hypertension: BP meds held due to patient being NPO. IV hydralazine prn #History of subarachnoid hemorrhage: s/p coiling. Stable #Seizure disorder: on vimpat 200mg bid PO. NOw on IV vimpat as she is NPO #History of uterine cancer: stable. S/p hysterectomy; cervix is still intatct DVT prophylaxis: SCDs. heparin drip discontinued. Charges/Coding Visit Charges Inpatient E&M: 58528 Subs Hosp L3
--- NOTE | 2023-07-08 15:39 | CT_ITS ---
STUDY: CT BRAIN WITHOUT CONTRAST REASON FOR EXAM: Female, 78 years old. altered mental status RADIATION DOSAGE (If Supplied By Facility): CTDIvol = ( 47.06 ) mGy, DLP = ( 819.74 ) mGycm TECHNIQUE: Transaxial CT imaging of the brain was performed without administration of intravenous contrast material. Individualized dose optimization techniques were used for this CT. COMPARISON: 07/05/2023 FINDINGS: Normal soft tissue structures. Normal calvarium. There is mild cerebral atrophy with widening of the extra-axial spaces and ventricular dilatation. There are areas of decreased attenuation within the white matter tracts of the supratentorial brain, consistent with microvascular disease changes. Normal basal ganglia and thalami. Normal brainstem. Normal cerebellum. Stable appearance of aneurysm clipping in the right [place] There is no intracranial hemorrhage. There are no findings of an acute ischemic infarction. Normal visualized paranasal sinuses. CT/Brain/Head without Contrast IMPRESSION: Chronic involutional changes of the brain. No acute hemorrhage or significant interval change Electronically Signed: Basil Hayes MD at 17:09 EDT ,
[2023-07-08] MEDS: Dextrose 5%-Water (1000mL Bag) 1,000 ML 75 ML IV (17:44)
[2023-07-09] VITALS (9 sets, daily range): BP systolic 124–163; BP diastolic 61–74; PULSE 75–91; RESP 16–18; TEMP 37–37.8; O2SAT 93–97
[2023-07-09] MEDS: Ampicillin/Sulbactam 3 GM in 0.9% Normal Saline (100mL MB+) 100 ML IV ×3 (05:18→22:21)
[2023-07-09] MEDS: Menthol/Lanolin/Calamine/Znox 113 GM Tube 1 APPLIC TOPICAL ×3 (05:23→22:25)
[2023-07-09] MEDS: Dextrose 5%-Water (1000mL Bag) 1,000 ML 75 ML IV (05:24)
[2023-07-09] MEDS: hydrALAZINE 20 MG/ML Vial 10 MG IV (05:37)
[2023-07-09] MEDS: 0.9% Saline Lock 10 ML Syringe IV (05:39)
[2023-07-09 06:12] LABS: Absolute Lymphocyte Count 0.75 X10^3/uL (0.83-4.51); Absolute Neutrophil Count 1.5 X10^3/uL (2.0-7.7); Basophil# 0.01 X10^3/uL; Basophil% 0.4 % (0-1); Hematocrit 24.9 % (37-47); Hemoglobin 7.3 g/dL (12.0-15.0); Lymphocyte # 0.75 X10^3/ul (0.83-4.51); Lymphocyte % 28.1 % (19-41); Mean Corp Hgb Conc 29.3 g/dL (32-36); Mean Corpuscular Volume 85.3 fL (81-99); Mean Platelet Vol. 10.3 fl (6.2-12.0); Monocyte# 0.32 X10^3/uL; NRBC Flagged by Analyzer 0 % (0-5); Neutrophil # 1.52 X10^3/uL (2.7-7.7); Neutrophil % 56.9 % (47-70); POSITIVE MORPHOLOGY YES; Platelet Count 112 K/mm3 (150-450); RBC Distribution Width CV 18.6 % (11.6-14.6); RBC Distribution Width SD 58.3 fl (35.1-43.9); Red Blood Count 2.92 M/mm3 (4.2-5.4); White Blood Count 2.7 K/mm3 (4.4-11.0)
[2023-07-09 06:19] LABS: Differential Indicated SCAN CRITERIA MET
[2023-07-09 06:43] LABS: Platelet Estimate SLT DEC (ADEQ)
[2023-07-09 06:44] LABS: Anisocytosis 1+
[2023-07-09 06:55] LABS: Anion Gap 6 (5-15); BUN 29 mg/dL (7-18); BUN/Creat Ratio 23.2 RATIO (10-20); Calcium,Total 8.2 mg/dL (8.5-10.1); Chloride 117 mmol/L (98-107); Creatinine, Serum 1.25 mg/dL (0.55-1.02); EST Glomerular Filtration Rate 44 mL/min (>60); Est Glom Filt Rate - Afr Amer 53 mL/min (>60); Estimated Creatinine Clearance 33.92 ml/min; Glucose 115 mg/dL (74-106); Potassium 3.8 mmol/L (3.5-5.1); Sodium Level 148 mmol/L (136-145)
--- NOTE | 2023-07-09 09:40 | CASEMGMT ---
Discharge Planning Updates sent to [facility]. Asked for new precert to be submitted. Daniela Mccormick, Discharge Planning Asst.
[2023-07-09] MEDS: Pantoprazole Sodium 40 MG in 0.9% Normal Saline (100mL MB+) 100 ML 330 MG IV ×2 (10:02→21:25)
[2023-07-09] MEDS: Petrolatum 33% Tube 1 APPLIC TOPICAL ×2 (10:04→22:25)
[2023-07-09] MEDS: Metoprolol Tartrate 25 MG Tablet PO ×2 (10:05→22:26)
[2023-07-09] MEDS: Ferrous Gluconate 324 MG Tablet PO (10:05)
[2023-07-09] MEDS: Acetaminophen 325 MG Tablet 650 MG PO (12:24)
--- NOTE | 2023-07-09 12:31 | PCM.PROGNOTE ---
Subjective Subjective Patient seen and examined. She was lethargic but able to communicate. She felt warm to touch, though there was no documented fever. She had been weaned down to 1L of oxygen. hb today is 7.3. Objective Data Objective Data Vital Signs: Vital Signs Temp Pulse Resp BP Pulse Ox O2 Del Method O2 Flow Rate 98.6 F 91 18 130/67 H 97 Nasal Cannula 1 07/09/23 10:52 07/09/23 10:52 07/09/23 10:52 07/09/23 10:52 07/09/23 10:52 07/09/23 10:52 07/09/23 10:52 FiO2 100 07/05/23 14:40 Oxygen Flow Rate (L/min) 1 Oxygen Delivery Method Nasal Cannula Weight: 154 lb 12.796 oz Body Mass Index (BMI) 25.7 Intake & Output: Intake and Output for Last 24 Hours 07/07/23 07/08/23 07/09/23 23:59 23:59 23:59 Intake Total 2140.83 / 2140.83 2674.50 / 2674.50 1209 / 1209 Output Total 2600 / 2600 1999 / 1999 850 / 850 Balance -459.17 / -459.17 674.50 / 674.50 359 / 359 Lab / Micro Data 07/09/23 04:54 07/09/23 04:54 Labs: Laboratory Results - last 24 hr 07/08/23 16:07: Ammonia 21.0 07/09/23 04:54: WBC 2.7 L, RBC 2.92 L, Hgb 7.3 L, Hct 24.9 L, MCV 85.3, MCH 25.0 L, MCHC 29.3 L, RDW Std Deviation 58.3 H, RDW Coeff of Vahid 18.6 H, Plt Count 112 L, MPV 10.3, Immature Gran % (Auto) 2.600 H, Neut % (Auto) 56.9, Lymph % (Auto) 28.1, [place] % (Auto) 12.0 H, Eos % (Auto) 0.0, Baso % (Auto) 0.4, Absolute Neuts (auto) 1.5 L, Absolute Lymphs (auto) 0.75 L, Nucleated RBC % 0, Platelet Estimate SLT DEC, Anisocytosis 1+, Sodium 148 H, Potassium 3.8, Chloride 117 H, Carbon Dioxide 25.0, Anion Gap 6, BUN 29 H, Creatinine 1.25 H, Estim Creat Clear Calc 33.92, Est GFR (MDRD) Af Amer 53 L, Est GFR (MDRD) Non-Af 44 L, BUN/Creatinine Ratio 23.2 H, Glucose 115 H, Calcium 8.2 L Micro: Microbiology 07/03/23 06:55 Blood Culture (Wb) - Anticubital Left Blood Culture - Final No growth in 5 days. 07/05/23 08:37 Blood Culture (Wb) - Right Hand Blood Culture - Preliminary No growth in 48 hours. 07/05/23 08:30 Blood Culture (Wb) - Anticubital Right Blood Culture - Preliminary No growth in 48 hours. 07/05/23 09:45 Urine, Catheterized Urine Culture - Final Culture exhibits no growth. 06/30/23 16:43 Blood Culture (Wb) - Anticubital Left Bacteria Detection (PCR) - Final Strep not Strep pneumo 06/30/23 16:43 Blood Culture (Wb) - Anticubital Left Blood Culture - Final Streptococcus dysgalactiae equ 06/30/23 17:04 Blood Culture (Wb) - Anticubital Right Blood Culture - Final No growth in 5 days. 07/05/23 16:45 Stool Stool Occult Blood (EMPERATRIZ) - Final 07/05/23 08:21 Mucosa - Nasopharyngeal Coronavirus COVID-19 PCR - Final 07/05/23 08:21 Mucosa - Nasopharyngeal Respiratory Panel (PCR) - Final 06/30/23 18:43 Urine, Clean Catch Urine Culture - Final Escherichia coli 06/30/23 12:27 Nasal Secretion SARS-CoV-2 & FLU Antigen (Rapid) - Final Radiography Diagnostic Testing: Radiology Impression Brain CT 07/08/23 15:39 IMPRESSION: Chronic involutional changes of the brain. No acute hemorrhage or significant interval change Electronically Signed: Basil Hayes MD at 17:09 EDT , Physical Exam Const alert, no apparent distress and average body habitus; Negative for healthy appearing Constitutional Narrative: frail Orientation / Consciousness: confused and lethargic HEENT normocephalic and head/scalp atraumatic Mouth: dry mucous membranes Eyes PERRL and EOMs intact bilaterally Neck no lymphadenopathy and supple Neck Narrative: Trachea midline with no thyroid enlargement Lymph Lymphatic: no lymphadenopathy noted, no lymphedema noted and lymphedema Resp normal respiratory effort, normal air movement, no retractions, no use of accessory muscles and clear to auscultation bilaterally Resp Narrative: mildly diminished breath sounds bibasally, few crackles. down to 1L of oxygen. Auscultation: rhonchi; Negative for rales or wheezes Cardio regular rate, regular rhythm, S1 normal heart sound, S2 normal heart sound, no rub, no gallops and no clicks Cardio Narrative: 3-4 out of 6 systolic murmur loudest at right upper sternal border GI normal to inspection, nondistended, normoactive bowel sounds, soft to palpation, non-tender and non-distended Extremity normal capillary refill, no clubbing, cyanosis or edema and no calf tenderness Extremity Narrative: Pedal pulses are 2+ Skin Skin Narrative: Pale, warm to touch General Skin Exam: no breakdown and turgor normal Neuro CN's II-XII intact bilaterally, moves all extremities, no focal motor deficits, no sensory deficits noted and deep tendon reflexes 2+ bilaterally Neuro Narrative: lethargic, able to move all extremities, Speech: Negative for speech normal Motor Exam: general weakness Psych Psych Narrative: frail Appearance: appropriate Mood & Affect: flat affect Assessment & Plan Assessment/Plan (1) Aspiration pneumonia: (2) Bilateral hydronephrosis: (3) MIKE (acute kidney injury): PLAN: Plan #Probable Aspiration pneumonia antibiotics narrowed down to unasyn. To switch to PO augmentin at discharge blood cultures show no growth patien feels warm today, but has no documented fever CXR was unremarkable speech therapy on board. modified barium swallow showed moderate to severe oropharyngeal dysphagia. On mechanical soft textures and honey thick liquids. on 2L of oxygen. Titrate oxygen to maintain sats >90% #Acute encephalopathy etiology is unclear. on IV unasyn due to aspiration pneumonia modified barium swallow as above. On mechanical soft textured with honey thick liquid diet. has had 2 sets of blood cultures which are negative. She is on IV unasyn and ID is on board her mentation has improved a bit today, and though she is weak, she is able to communicate. she had a CT of the brain July 05 which showed no acute intracranial pathology Hydrated with IV fluids normal saline and monitor for now. Check ammonia level Get repeat CT of the brain to assess for possible stroke in light of new onset A-fib and patient not on anticoagulation due to anemia. #Dysphagia: barium swallow results as above. On mechanical soft textures and honey thick liquids. #Afib still in afib. rate controlled on PO metoprolol 25mg bid has no history of afib. check troponin series 2D echo showed EF of 60% and normal LV systolic function as well as mildly enlarged left atrium (07/01/2023) heparin drip stopped due to anemia Patient is high risk for bleeding due to anemia, history of subarachnoid hemorrhage, general weakness and debility as well as high risk of falls. will therefor hold off on anticoagulation. #Bilateral hydronephrosis as per CT abdomen and pelvis. Renal USG showed no evidence of obstruction Cortés catheter in situ #MIKE on CKD IIIB losartan and lasix on hold being hydrated with IVF will monitor Cr #Anemia: She had EGD which showed normal esophagus and gastritis. She was on heparin drip for A-fib but this has been discontinued. Hemoglobin today 7.3. #Pancytopenia: WBC is 2.7 today, with hemoglobin of 7.3 and platelets are up to 112 today. This likely due to underlying infection. Will monitor for now. #Generalised weakness and debility PT.OT On board. Fall precautions #strep dysagalactiae bacteremia 2 out of 2 blood cultures positive repeat blood cultures negative so far 2D echo showed EF of 60% with no vegetations and normal LV function, as well as moderate aortic stenosis ID on board On iV unasyn #Moderate aortic valve stenosis as per 2D echo to follow up with cardiology on outpatient basis #Dementia also had encephalopathy on admission, thought to be toxic vs metabolic encephalopathy CT of the brain were unremarkable improving PT.OT on board. Will monitor #Hypothyroidism: TSH WNL. Synthroid stopped as she had not been taking it at home #Hypertension: BP meds held due to patient being NPO. IV hydralazine prn #History of subarachnoid hemorrhage: s/p coiling. Stable #Seizure disorder: on vimpat 200mg bid PO. NOw on IV vimpat as she is NPO #History of uterine cancer: stable. S/p hysterectomy; cervix is still intatct DVT prophylaxis: SCDs. heparin drip discontinued. Disposition: will need placement. Precert pending Charges/Coding Visit Charges Inpatient E&M: 83688 Subs Hosp L2
--- NOTE | 2023-07-09 15:02 | CHAPLAIN ---
Type of Pastoral Visit ___ Initial Visit _x__ Follow-up Visit ___ On-call Visit ___ General Patient Visit ___ Spiritual Assessment ___ Family Conference ___ Bereavement ___ Rapid Response ___ Code Blue ___ Other (describe below) Pastoral Care Referral From _x__ Patient ___ Family ___ Nurse ___ Physician ___ Knit Tubing Dyer ___ Wreath Inspector ___ Other (describe below) Sacrament/Intervention ___ Active listening ___ Anointing ___ Gnosticist ___ Bereavement ___ Communion ___ Leslie exploration ___ ___ Life review _x__ Prayer ___ Reconciliation ___ Sacrament of Sick _x__ Supportive presence ___ Wedding ___ Other (describe below) Pastoral Comments patient is awake but does not open her eyes; pt responds to questions; pt states her welcome of a prayer; pt herself begins to pray out loud; this tankman continues to pray with pt and for her health; offer of presence and support; pt states that she is feeling fine
[2023-07-10] VITALS (10 sets, daily range): BP systolic 127–170; BP diastolic 65–87; PULSE 73–92; RESP 16–18; TEMP 36.2–36.9; O2SAT 93–98
[2023-07-10] MEDS: Ampicillin/Sulbactam 3 GM in 0.9% Normal Saline (100mL MB+) 100 ML IV ×2 (05:24→14:32)
[2023-07-10] MEDS: Menthol/Lanolin/Calamine/Znox 113 GM Tube 1 APPLIC TOPICAL ×3 (05:26→22:57)
[2023-07-10 05:52] LABS: Absolute Lymphocyte Count 0.99 X10^3/uL (0.83-4.51); Basophil# 0.01 X10^3/uL; Basophil% 0.4 % (0-1); Hematocrit 23.9 % (37-47); Lymphocyte # 0.99 X10^3/ul (0.83-4.51); Lymphocyte % 43.2 % (19-41); Mean Corp Hgb Conc 29.3 g/dL (32-36); Mean Corpuscular Hgb 24.9 pg (27.0-32.0); Mean Corpuscular Volume 85.1 fL (81-99); Mean Platelet Vol. 10.1 fl (6.2-12.0); Monocyte# 0.27 X10^3/uL; Monocyte% 11.8 % (0-10); NRBC Flagged by Analyzer 0 % (0-5); Neutrophil # 0.98 X10^3/uL (2.7-7.7); Neutrophil % 42.9 % (47-70); POSITIVE DIFFERENTIAL YES; Platelet Count 121 K/mm3 (150-450); RBC Distribution Width CV 18.3 % (11.6-14.6); RBC Distribution Width SD 57.1 fl (35.1-43.9); Red Blood Count 2.81 M/mm3 (4.2-5.4); White Blood Count 2.3 K/mm3 (4.4-11.0)
[2023-07-10 05:59] LABS: Differential Indicated SCAN CRITERIA MET
[2023-07-10 06:19] LABS: Anion Gap 5 (5-15); BUN 27 mg/dL (7-18); Calcium,Total 7.9 mg/dL (8.5-10.1); Chloride 117 mmol/L (98-107); Creatinine, Serum 1.23 mg/dL (0.55-1.02); EST Glomerular Filtration Rate 45 mL/min (>60); Est Glom Filt Rate - Afr Amer 54 mL/min (>60); Estimated Creatinine Clearance 34.47 ml/min; Glucose 105 mg/dL (74-106); Potassium 3.7 mmol/L (3.5-5.1); Sodium Level 147 mmol/L (136-145)
[2023-07-10 06:23] LABS: Differential Comment SCANNED
--- NOTE | 2023-07-10 08:44 | CASEMGMT ---
Patient was approved again to go to [facility]. SW will notify physician. Plan: [facility] under skilled level of care Orly BURRIS
[2023-07-10] MEDS: Petrolatum 33% Tube 1 APPLIC TOPICAL ×2 (09:10→22:56)
[2023-07-10] MEDS: Ferrous Gluconate 324 MG Tablet PO (09:11)
[2023-07-10] MEDS: Metoprolol Tartrate 25 MG Tablet PO ×2 (09:11→22:58)
[2023-07-10] MEDS: Acetaminophen 325 MG Tablet 650 MG PO (09:14)
[2023-07-10] MEDS: Pantoprazole Sodium 40 MG in 0.9% Normal Saline (100mL MB+) 100 ML 330 MG IV ×2 (09:17→23:08)
[2023-07-10 09:44] LABS: Hematocrit 24.9 % (37-47); Hemoglobin 7.3 g/dL (12.0-15.0)
--- NOTE | 2023-07-10 10:05 | PCM.PN.ID ---
Physical Exam Narrative Sleeping this AM, no fever Const no apparent distress Resp normal air movement and clear to auscultation bilaterally Auscultation: diminished lung sounds Cardio regular rate and regular rhythm GI soft to palpation, non-tender and non-distended Skin no rashes or lesions noted ID ID: Route of nutrition/ use of supplements: [] Nutritional Intake: [] IV Site: [] Cortés Catheter: [] Assessment & Plan Assessment/Plan (1) UTI (urinary tract infection): (2) Generalized weakness: (3) Toxic metabolic encephalopathy: PLAN: Recurrent aspiration. Cont unasyn, day 5. Plan on stopping 07/12. Will follow (4) Bacteremia due to Streptococcus:
--- NOTE | 2023-07-10 14:24 | PN_ITS ---
Subjective Subjective Patient seen and examined. She was alert but very weak and lethargic. Hb is 7.2 today. She is on room air. Unable to do comprehensive review of systems due to weakness Objective Data Objective Data Vital Signs: Vital Signs Temp Pulse Resp BP Pulse Ox O2 Del Method O2 Flow Rate 97.2 F L 79 16 170/87 H 94 Room Air 1 07/10/23 08:56 07/10/23 09:11 07/10/23 08:56 07/10/23 09:11 07/10/23 08:56 07/10/23 09:00 07/09/23 12:12 FiO2 100 07/05/23 14:40 Oxygen Flow Rate (L/min) 1 Oxygen Delivery Method Room Air Weight: 154 lb 12.796 oz Body Mass Index (BMI) 25.7 Intake & Output: Intake and Output for Last 24 Hours 07/08/23 07/09/23 07/10/23 23:59 23:59 23:59 Intake Total 2674.50 / 2674.50 2783 / 2783 322 / 322 Output Total 1999 1750 / 1750 550 / 550 Balance 674.50 / 674.50 1033 / 1033 -228 / -228 Lab / Micro Data 07/10/23 09:28 07/10/23 05:25 Labs: Laboratory Results - last 24 hr 07/10/23 05:25: WBC 2.3 L, RBC 2.81 L, Hgb 7.0 L, Hct 23.9 L, MCV 85.1, MCH 24.9 L, MCHC 29.3 L, RDW Std Deviation 57.1 H, RDW Coeff of Vahid 18.3 H, Plt Count 121 L, MPV 10.1, Immature Gran % (Auto) 1.700 H, Neut % (Auto) 42.9 L, Lymph % ( Auto) 43.2 H, [place] % (Auto) 11.8 H, Eos % (Auto) 0.0, Baso % (Auto) 0.4, Absolute Neuts (auto) 1.0 L, Absolute Lymphs (auto) 0.99, Nucleated RBC % 0, Differential Comment SCANNED, Sodium 147 H, Potassium 3.7, Chloride 117 H, Carbon Dioxide 25.0, Anion Gap 5, BUN 27 H, Creatinine 1.23 H, Estim Creat Clear Calc 34.47, Est GFR (MDRD) Af Amer 54 L, Est GFR (MDRD) Non-Af 45 L, BUN/Creatinine Ratio 22.0 H, Glucose 105, Calcium 7.9 L 07/10/23 09:28: Hgb 7.3 L, Hct 24.9 L Micro: Microbiology 07/05/23 08:37 Blood Culture (Wb) - Right Hand Blood Culture - Final No growth in 5 days. 07/05/23 08:30 Blood Culture (Wb) - Anticubital Right Blood Culture - Final No growth in 5 days. 07/10/23 09:15 Stool Stool Occult Blood (EMPERATRIZ) - Final Occult Blood Positive 07/03/23 06:55 Blood Culture (Wb) - Anticubital Left Blood Culture - Final No growth in 5 days. 07/05/23 09:45 Urine, Catheterized Urine Culture - Final Culture exhibits no growth. 06/30/23 16:43 Blood Culture (Wb) - Anticubital Left Bacteria Detection (PCR) - Final Strep not Strep pneumo 06/30/23 16:43 Blood Culture (Wb) - Anticubital Left Blood Culture - Final Streptococcus dysgalactiae equ 06/30/23 17:04 Blood Culture (Wb) - Anticubital Right Blood Culture - Final No growth in 5 days. 07/05/23 16:45 Stool Stool Occult Blood (EMPERATRIZ) - Final 07/05/23 08:21 Mucosa - Nasopharyngeal Coronavirus COVID-19 PCR - Final 07/05/23 08:21 Mucosa - Nasopharyngeal Respiratory Panel (PCR) - Final 06/30/23 18:43 Urine, Clean Catch Urine Culture - Final Escherichia coli 06/30/23 12:27 Nasal Secretion SARS-CoV-2 & FLU Antigen (Rapid) - Final Physical Exam Const alert and average body habitus; Negative for healthy appearing Constitutional Narrative: frail Orientation / Consciousness: lethargic HEENT normocephalic and head/scalp atraumatic Eyes PERRL and EOMs intact bilaterally Neck no lymphadenopathy and supple Neck Narrative: Trachea midline with no thyroid enlargement Lymph Lymphatic: no lymphadenopathy noted, no lymphedema noted and lymphedema Resp Resp Narrative: diminished breath sounds bibasally, no wheezes or crackles. on room air. Auscultation: rhonchi; Negative for rales or wheezes Cardio regular rate, regular rhythm, S1 normal heart sound, S2 normal heart sound, no rub, no gallops and no clicks Cardio Narrative: 3-4 out of 6 systolic murmur loudest at right upper sternal border GI normal to inspection, nondistended, normoactive bowel sounds, soft to palpation, non-tender and non-distended Extremity normal capillary refill, no clubbing, cyanosis or edema and no calf tenderness Extremity Narrative: Pedal pulses are 2+ Skin General Skin Exam: no breakdown and turgor normal Neuro CN's II-XII intact bilaterally and moves all extremities Neuro Narrative: lethargic, able to move all extremities, Motor Exam: general weakness Psych Psych Narrative: frail Mood & Affect: flat affect Assessment & Plan Assessment/Plan (1) Aspiration pneumonia: (2) Bilateral hydronephrosis: (3) MIKE (acute kidney injury): PLAN: Plan #Probable Aspiration pneumonia * antibiotics narrowed down to unasyn. To switch to PO augmentin at discharge * blood cultures show no growth * CXR was unremarkable * speech therapy on board. modified barium swallow showed moderate to severe oropharyngeal dysphagia. On mechanical soft textures and honey thick liquids. * on 2L of oxygen. Titrate oxygen to maintain sats >90% * per ID, to continue unasyn till 07/12/2023. * * #Acute encephalopathy * etiology is unclear. on IV unasyn due to aspiration pneumonia * modified barium swallow as above. On mechanical soft textured with honey thick liquid diet. * has had 2 sets of blood cultures which are negative. She is on IV unasyn and ID is on board * her mentation has improved a bit today, and though she is weak, she is able to communicate. * she had a CT of the brain July 05 which showed no acute intracranial pathology * Hydrated with IV fluids normal saline and monitor for now. Check ammonia level * patieint a bit more alert today, though she is still lethargic. Likely due to her debility and aspiration pneumonia * #Dysphagia: barium swallow results as above. On mechanical soft textures and honey thick liquids. #Afib * in normal sinus rhythm now * rate controlled * on PO metoprolol 25mg bid * has no history of afib. * 2D echo showed EF of 60% and normal LV systolic function as well as mildly enlarged left atrium (07/01/2023) * heparin drip stopped due to anemia * Patient is high risk for bleeding due to anemia, history of subarachnoid hemorrhage, general weakness and debility as well as high risk of falls. * will therefore hold off on anticoagulation. #Bilateral hydronephrosis * as per CT abdomen and pelvis. Renal USG showed no evidence of obstruction * Cortés catheter in situ * #MIKE on CKD IIIB * losartan and lasix on hold * being hydrated with IVF * will monitor Cr * #Anemia: * She had EGD which showed normal esophagus and gastritis. * Hemoglobin today was 7, but on repeat is 7.3 * will monitor * #Hypernatremia: sodium is 147, down from 148 yesterday. continue D5W and monitor #Pancytopenia: WBC is 2.3 today, with hemoglobin of 7.3 and platelets are further up to 121 today. This likely due to underlying infection. Will monitor for now. #Generalised weakness and debility * PT.OT On board. Fall precautions * #strep dysagalactiae bacteremia * 2 out of 2 blood cultures positive * repeat blood cultures negative so far * 2D echo showed EF of 60% with no vegetations and normal LV function, as well as moderate aortic stenosis * ID on board * On iV unasyn. Per ID, to continue IV unasyn till 07/12/2023 * * #Moderate aortic valve stenosis * as per 2D echo * to follow up with cardiology on outpatient basis * #Dementia * also had encephalopathy on admission, thought to be toxic vs metabolic encephalopathy * CT of the brain were unremarkable * improving * PT.OT on board. Will monitor * #Hypothyroidism: TSH WNL. Synthroid stopped as she had not been taking it at home #Hypertension: BP meds held due to patient being NPO. IV hydralazine prn #History of subarachnoid hemorrhage: s/p coiling. Stable #Seizure disorder: on vimpat 200mg bid PO. #History of uterine cancer: stable. S/p hysterectomy; cervix is still intact DVT prophylaxis: SCDs. Disposition: precert obtained. TO dc to SNF on Thursday, after she completes course of IV antibiotics Charges/Coding Visit Charges Inpatient E&M: 82683 Subs Hosp L2
[2023-07-10] MEDS: Dextrose 5%-Water (1000mL Bag) 1,000 ML 100 ML IV (15:42)
[2023-07-11] VITALS (8 sets, daily range): BP systolic 126–153; BP diastolic 51–75; PULSE 68–80; RESP 14–16; TEMP 36.5–37.6; O2SAT 93–97
[2023-07-11] MEDS: Ampicillin/Sulbactam 3 GM in 0.9% Normal Saline (100mL MB+) 100 ML IV ×4 (00:10→21:25)
[2023-07-11] MEDS: Dextrose 5%-Water (1000mL Bag) 1,000 ML 100 ML IV (01:19)
[2023-07-11] MEDS: Menthol/Lanolin/Calamine/Znox 113 GM Tube 1 APPLIC TOPICAL ×2 (06:00→21:29)
[2023-07-11 06:29] LABS: Absolute Neutrophil Count 1.5 X10^3/uL (2.0-7.7); Hematocrit 23.8 % (37-47); Hemoglobin 7.2 g/dL (12.0-15.0); Lymphocyte % 41.5 % (19-41); Mean Corp Hgb Conc 30.3 g/dL (32-36); Mean Corpuscular Hgb 25.2 pg (27.0-32.0); Mean Corpuscular Volume 83.2 fL (81-99); Mean Platelet Vol. 9.8 fl (6.2-12.0); Monocyte# 0.31 X10^3/uL; Monocyte% 9.9 % (0-10); NRBC Flagged by Analyzer 0 % (0-5); Neutrophil # 1.46 X10^3/uL (2.7-7.7); Neutrophil % 46.7 % (47-70); Platelet Count 110 K/mm3 (150-450); RBC Distribution Width CV 18.2 % (11.6-14.6); RBC Distribution Width SD 55.5 fl (35.1-43.9); Red Blood Count 2.86 M/mm3 (4.2-5.4); White Blood Count 3.1 K/mm3 (4.4-11.0)
[2023-07-11 06:55] LABS: Anion Gap 6 (5-15); BUN 26 mg/dL (7-18); Calcium,Total 7.7 mg/dL (8.5-10.1); Chloride 114 mmol/L (98-107); EST Glomerular Filtration Rate 42 mL/min (>60); Est Glom Filt Rate - Afr Amer 51 mL/min (>60); Estimated Creatinine Clearance 32.61 ml/min; Glucose 112 mg/dL (74-106); Potassium 3.7 mmol/L (3.5-5.1); Sodium Level 145 mmol/L (136-145)
[2023-07-11] MEDS: Metoprolol Tartrate 25 MG Tablet PO ×2 (09:25→21:28)
[2023-07-11] MEDS: Ferrous Gluconate 324 MG Tablet PO (09:25)
[2023-07-11] MEDS: Acetaminophen 325 MG Tablet 650 MG PO (09:25)
[2023-07-11] MEDS: Pantoprazole Sodium 40 MG in 0.9% Normal Saline (100mL MB+) 100 ML 330 MG IV ×2 (09:28→21:30)
[2023-07-11] MEDS: Petrolatum 33% Tube 1 APPLIC TOPICAL ×2 (09:28→21:29)
--- NOTE | 2023-07-11 14:45 | PN_ITS ---
Subjective Subjective Patient seen and examined. She had no complaints. She was resting calmly. No active events overnight. Review of systems otherwise negative. Objective Data Objective Data Vital Signs: Vital Signs Temp Pulse Resp BP Pulse Ox O2 Del Method O2 Flow Rate 98.1 F 68 14 133/51 H 94 Room Air 1 07/11/23 10:41 07/11/23 10:41 07/11/23 10:41 07/11/23 10:41 07/11/23 10:41 07/11/23 10:41 07/09/23 12:12 FiO2 100 07/05/23 14:40 Oxygen Flow Rate (L/min) 1 Oxygen Delivery Method Room Air Weight: 154 lb 12.796 oz Body Mass Index (BMI) 25.7 Intake & Output: Intake and Output for Last 24 Hours 07/09/23 07/10/23 07/11/23 23:59 23:59 23:59 Intake Total 2783 / 2783 724 / 724 2395.67 / 2395.67 Output Total 1750 / 1750 1450 / 1450 925 / 925 Balance 1033 / 1033 -726 / -726 1470.67 / 1470.67 Lab / Micro Data 07/11/23 05:38 07/11/23 05:38 Labs: Laboratory Results - last 24 hr 07/11/23 05:38: WBC 3.1 L, RBC 2.86 L, Hgb 7.2 L, Hct 23.8 L, MCV 83.2, MCH 25.2 L, MCHC 30.3 L, RDW Std Deviation 55.5 H, RDW Coeff of Vahid 18.2 H, Plt Count 110 L, MPV 9.8, Immature Gran % (Auto) 1.900 H, Neut % (Auto) 46.7 L, Lymph % (Auto) 41.5 H, [place] % (Auto) 9.9, Eos % (Auto) 0.0, Baso % (Auto) 0.0, Absolute Neuts (auto) 1.5 L, Absolute Lymphs (auto) 1.30, Nucleated RBC % 0, Sodium 145, Potassium 3.7, Chloride 114 H, Carbon Dioxide 25.0, Anion Gap 6, BUN 26 H, Creatinine 1.30 H, Estim Creat Clear Calc 32.61, Est GFR (MDRD) Af Amer 51 L, Est GFR (MDRD) Non-Af 42 L, BUN/Creatinine Ratio 20.0, Glucose 112 H, Calcium 7.7 L Micro: Microbiology 07/05/23 08:37 Blood Culture (Wb) - Right Hand Blood Culture - Final No growth in 5 days. 07/05/23 08:30 Blood Culture (Wb) - Anticubital Right Blood Culture - Final No growth in 5 days. 07/10/23 09:15 Stool Stool Occult Blood (EMPERATRIZ) - Final Occult Blood Positive 07/03/23 06:55 Blood Culture (Wb) - Anticubital Left Blood Culture - Final No growth in 5 days. 07/05/23 09:45 Urine, Catheterized Urine Culture - Final Culture exhibits no growth. 06/30/23 16:43 Blood Culture (Wb) - Anticubital Left Bacteria Detection (PCR) - Final Strep not Strep pneumo 06/30/23 16:43 Blood Culture (Wb) - Anticubital Left Blood Culture - Final Streptococcus dysgalactiae equ 06/30/23 17:04 Blood Culture (Wb) - Anticubital Right Blood Culture - Final No growth in 5 days. 07/05/23 16:45 Stool Stool Occult Blood (EMPERATRIZ) - Final 07/05/23 08:21 Mucosa - Nasopharyngeal Coronavirus COVID-19 PCR - Final 07/05/23 08:21 Mucosa - Nasopharyngeal Respiratory Panel (PCR) - Final 06/30/23 18:43 Urine, Clean Catch Urine Culture - Final Escherichia coli 06/30/23 12:27 Nasal Secretion SARS-CoV-2 & FLU Antigen (Rapid) - Final Physical Exam Const alert, no apparent distress and average body habitus; Negative for healthy appearing Constitutional Narrative: frail Orientation / Consciousness: disoriented and lethargic HEENT normocephalic and head/scalp atraumatic Eyes PERRL and EOMs intact bilaterally Eyes Narrative: Conjunctiva are mildly pale bilaterally, no scleral icterus Neck no lymphadenopathy and supple Lymph Lymphatic: no lymphadenopathy noted, no lymphedema noted and lymphedema Resp normal respiratory effort, normal air movement, no retractions, no use of accessory muscles and clear to auscultation bilaterally Resp Narrative: diminished breath sounds bibasally, no wheezes or crackles. on room air. Auscultation: rhonchi; Negative for rales or wheezes Cardio regular rate, regular rhythm, S1 normal heart sound, S2 normal heart sound, no rub, no gallops and no clicks Cardio Narrative: 3-4 out of 6 systolic murmur loudest at right upper sternal border GI normal to inspection, nondistended, normoactive bowel sounds, soft to palpation, non-tender and non-distended GI Narrative: Mild tenderness with palpation diffusely but no significant distention, abdomen is soft Extremity normal capillary refill, no clubbing, cyanosis or edema and no calf tenderness General Extremity: no tenderness to palpation of joints or extremities Skin Skin Narrative: Pale, warm to touch General Skin Exam: no breakdown and turgor normal Neuro CN's II-XII intact bilaterally, moves all extremities, no focal motor deficits, no sensory deficits noted and deep tendon reflexes 2+ bilaterally Neuro Narrative: lethargic, able to move all extremities, Speech: Negative for speech normal Motor Exam: general weakness Psych Psych Narrative: frail Mood & Affect: flat affect Assessment & Plan Assessment/Plan (1) Aspiration pneumonia: (2) Bilateral hydronephrosis: (3) MIKE (acute kidney injury): PLAN: Plan #Probable Aspiration pneumonia * antibiotics narrowed down to unasyn. To switch to PO augmentin at discharge * blood cultures show no growth * CXR was unremarkable * speech therapy on board. modified barium swallow showed moderate to severe oropharyngeal dysphagia. On mechanical soft textures and honey thick liquids. * on 2L of oxygen. Titrate oxygen to maintain sats >90% * per ID, to continue unasyn till 07/12/2023. * * #Acute encephalopathy * etiology is unclear. on IV unasyn due to aspiration pneumonia * modified barium swallow as above. On mechanical soft textured with honey thick liquid diet. * has had 2 sets of blood cultures which are negative. She is on IV unasyn and ID is on board * her mentation has improved a bit today, and though she is weak, she is able to communicate. * she had a CT of the brain July 05 which showed no acute intracranial pathology * Hydrated with IV fluids normal saline and monitor for now. Check ammonia level * patieint a bit more alert today, though she is still lethargic. Likely due to her debility and aspiration pneumonia * #Dysphagia: barium swallow results as above. On mechanical soft textures and honey thick liquids. #Afib * in normal sinus rhythm now * rate controlled * on PO metoprolol 25mg bid * has no history of afib. * 2D echo showed EF of 60% and normal LV systolic function as well as mildly enlarged left atrium (07/01/2023) * heparin drip stopped due to anemia * Patient is high risk for bleeding due to anemia, history of subarachnoid hemorrhage, general weakness and debility as well as high risk of falls. * will therefore hold off on anticoagulation. #Bilateral hydronephrosis * as per CT abdomen and pelvis. Renal USG showed no evidence of obstruction * Cortés catheter in situ * #MIKE on CKD IIIB * losartan and lasix on hold * resolved * #Anemia: * She had EGD which showed normal esophagus and gastritis. * Hemoglobin today 7.2. * Discussed with gastroenterology. Due to patient's frail state, he will defer colonoscopy for outpatient basis. Per Gastroenterology, he spoke to patient it does not appear that she really wants a colonoscopy also. To follow-up with gastroenterology on outpatient basis for decision about colonoscopy. * * #Hypernatremia: resolved. Sodium is down to 145 today #Pancytopenia: Improving. WBC is up to 3.1 today. Hemoglobin is 7.2 and platelets at 110 today. Will continue mointoring #Generalised weakness and debility * PT.OT On board. Fall precautions * #strep dysagalactiae bacteremia * 2 out of 2 blood cultures positive * repeat blood cultures negative so far * 2D echo showed EF of 60% with no vegetations and normal LV function, as well as moderate aortic stenosis * ID on board * On iV unasyn. Per ID, to continue IV unasyn till 07/12/2023 * * #Moderate aortic valve stenosis * as per 2D echo * to follow up with cardiology on outpatient basis * #Dementia * also had encephalopathy on admission, thought to be toxic vs metabolic encephalopathy * CT of the brain were unremarkable * improving * PT.OT on board. Will monitor * #Hypothyroidism: TSH WNL. Synthroid stopped as she had not been taking it at home #Hypertension: BP meds resumed and she is now on oral diet. #History of subarachnoid hemorrhage: s/p coiling. Stable #Seizure disorder: on vimpat 200mg bid PO. #History of uterine cancer: stable. S/p hysterectomy; cervix is still intact DVT prophylaxis: SCDs. Disposition: precert obtained. TO dc to SNF on Thursday, after she completes course of IV antibiotics Charges/Coding Visit Charges Inpatient E&M: 67773 Subs Hosp L2
--- NOTE | 2023-07-11 17:06 | PN.GI_ITS ---
Subjective Subjective Patient is doing well without any complaints. She is tolerating a diet and is resting in bed currently. Objective Data Objective Data Vital Signs: Vital Signs Temp Pulse Resp BP Pulse Ox O2 Del Method O2 Flow Rate 97.7 F L 76 16 135/64 H 93 Room Air 1 07/11/23 16:49 07/11/23 16:49 07/11/23 16:49 07/11/23 16:49 07/11/23 16:49 07/11/23 16:49 07/09/23 12:12 FiO2 100 07/05/23 14:40 Oxygen Flow Rate (L/min) 1 Oxygen Delivery Method Room Air Weight: 154 lb 12.796 oz Body Mass Index (BMI) 25.7 Intake & Output: Intake and Output for Last 24 Hours 07/09/23 07/10/23 07/11/23 23:59 23:59 23:59 Intake Total 2783 / 2783 724 / 724 2507.67 / 2507.67 Output Total 1750 / 1750 1450 / 1450 925 / 925 Balance 1033 / 1033 -726 / -726 1582.67 / 1582.67 Lab / Micro Data 07/11/23 05:38 07/11/23 05:38 Labs: Laboratory Results - last 24 hr 07/11/23 05:38: WBC 3.1 L, RBC 2.86 L, Hgb 7.2 L, Hct 23.8 L, MCV 83.2, MCH 25.2 L, MCHC 30.3 L, RDW Std Deviation 55.5 H, RDW Coeff of Vahid 18.2 H, Plt Count 110 L, MPV 9.8, Immature Gran % (Auto) 1.900 H, Neut % (Auto) 46.7 L, Lymph % (Auto) 41.5 H, [place] % (Auto) 9.9, Eos % (Auto) 0.0, Baso % (Auto) 0.0, Absolute Neuts (auto) 1.5 L, Absolute Lymphs (auto) 1.30, Nucleated RBC % 0, Sodium 145, Potassium 3.7, Chloride 114 H, Carbon Dioxide 25.0, Anion Gap 6, BUN 26 H, Creatinine 1.30 H, Estim Creat Clear Calc 32.61, Est GFR (MDRD) Af Amer 51 L, Est GFR (MDRD) Non-Af 42 L, BUN/Creatinine Ratio 20.0, Glucose 112 H, Calcium 7.7 L Micro: Microbiology 07/05/23 08:37 Blood Culture (Wb) - Right Hand Blood Culture - Final No growth in 5 days. 07/05/23 08:30 Blood Culture (Wb) - Anticubital Right Blood Culture - Final No growth in 5 days. 07/10/23 09:15 Stool Stool Occult Blood (EMPERATRIZ) - Final Occult Blood Positive 07/03/23 06:55 Blood Culture (Wb) - Anticubital Left Blood Culture - Final No growth in 5 days. 07/05/23 09:45 Urine, Catheterized Urine Culture - Final Culture exhibits no growth. 06/30/23 16:43 Blood Culture (Wb) - Anticubital Left Bacteria Detection (PCR) - Final Strep not Strep pneumo 06/30/23 16:43 Blood Culture (Wb) - Anticubital Left Blood Culture - Final Streptococcus dysgalactiae equ 06/30/23 17:04 Blood Culture (Wb) - Anticubital Right Blood Culture - Final No growth in 5 days. 07/05/23 16:45 Stool Stool Occult Blood (EMPERATRIZ) - Final 07/05/23 08:21 Mucosa - Nasopharyngeal Coronavirus COVID-19 PCR - Final 07/05/23 08:21 Mucosa - Nasopharyngeal Respiratory Panel (PCR) - Final 06/30/23 18:43 Urine, Clean Catch Urine Culture - Final Escherichia coli 06/30/23 12:27 Nasal Secretion SARS-CoV-2 & FLU Antigen (Rapid) - Final Physical Exam Const alert, no apparent distress and average body habitus; Negative for healthy appearing Constitutional Narrative: frail Orientation / Consciousness: disoriented and lethargic HEENT normocephalic and head/scalp atraumatic Eyes PERRL and EOMs intact bilaterally Eyes Narrative: Conjunctiva are mildly pale bilaterally, no scleral icterus Neck no lymphadenopathy and supple Lymph Lymphatic: no lymphadenopathy noted, no lymphedema noted and lymphedema Resp normal respiratory effort, normal air movement, no retractions, no use of ac cessory muscles and clear to auscultation bilaterally Resp Narrative: diminished breath sounds bibasally, no wheezes or crackles. on room air. Auscultation: rhonchi; Negative for rales or wheezes Cardio regular rate, regular rhythm, S1 normal heart sound, S2 normal heart sound, no rub, no gallops and no clicks Cardio Narrative: 3-4 out of 6 systolic murmur loudest at right upper sternal border GI normal to inspection, nondistended, normoactive bowel sounds, soft to palpation, non-tender and non-distended GI Narrative: Mild tenderness with palpation diffusely but no significant distention, abdomen is soft Extremity normal capillary refill, no clubbing, cyanosis or edema and no calf tenderness General Extremity: no tenderness to palpation of joints or extremities Skin Skin Narrative: Pale, warm to touch General Skin Exam: no breakdown and turgor normal Neuro CN's II-XII intact bilaterally, moves all extremities, no focal motor deficits, no sensory deficits noted and deep tendon reflexes 2+ bilaterally Neuro Narrative: lethargic, able to move all extremities, Speech: Negative for speech normal Motor Exam: general weakness Psych Psych Narrative: frail Mood & Affect: flat affect Assessment & Plan Assessment/Plan (1) Aspiration pneumonia: QUALIFIERS: Aspiration pneumonia type: unspecified Laterality: unspecified laterality Lung location: unspecified part of lung Qualified Code(s): J69.0 - Pneumonitis due to inhalation of food and vomit (2) Bilateral hydronephrosis: (3) MIKE (acute kidney injury): PLAN: Plan Likely aspiration pneumonia. Patient is on a modified diet and has not shown any signs of aspiration at this time. Dysphagia: Patient has oropharyngeal dysphagia from unknown cause at this time. She is on mechanical soft textures and honey thick liquids. Hemoccult positive stools-her hemoglobin seems to be stable. She can get an outpatient colonoscopy. Charges/Coding Visit Charges Inpatient E&M: 72658 Subs Hosp L3
[2023-07-12 05:00] VITALS: BP 129/56; PULSE 72; RESP 16; TEMP 36.8; O2SAT 98
[2023-07-12] MEDS: Menthol/Lanolin/Calamine/Znox 113 GM Tube 1 APPLIC TOPICAL (05:16)
[2023-07-12] MEDS: Ampicillin/Sulbactam 3 GM in 0.9% Normal Saline (100mL MB+) 100 ML IV (05:16)
[2023-07-12 07:48] LABS: Absolute Lymphocyte Count 0.75 X10^3/uL (0.83-4.51); Absolute Neutrophil Count 0.6 X10^3/uL (2.0-7.7); Basophil# 0.01 X10^3/uL; Basophil% 0.6 % (0-1); Hematocrit 24.1 % (37-47); Hemoglobin 7.2 g/dL (12.0-15.0); Lymphocyte # 0.75 X10^3/ul (0.83-4.51); Lymphocyte % 47.8 % (19-41); Mean Corp Hgb Conc 29.9 g/dL (32-36); Mean Corpuscular Hgb 25.2 pg (27.0-32.0); Mean Corpuscular Volume 84.3 fL (81-99); Mean Platelet Vol. 9.6 fl (6.2-12.0); Monocyte# 0.18 X10^3/uL; Monocyte% 11.5 % (0-10); NRBC Flagged by Analyzer 0 % (0-5); Neutrophil # 0.57 X10^3/uL (2.7-7.7); Neutrophil % 36.3 % (47-70); POSITIVE DIFFERENTIAL YES; POSITIVE MORPHOLOGY YES; Platelet Count 101 K/mm3 (150-450); RBC Distribution Width SD 55.8 fl (35.1-43.9); Red Blood Count 2.86 M/mm3 (4.2-5.4); White Blood Count 1.6 K/mm3 (4.4-11.0)
[2023-07-12 07:50] LABS: Differential Indicated SCAN CRITERIA MET
[2023-07-12 08:00] LABS: Anion Gap 5 (5-15); BUN 25 mg/dL (7-18); BUN/Creat Ratio 22.9 RATIO (10-20); Calcium,Total 7.9 mg/dL (8.5-10.1); Chloride 113 mmol/L (98-107); Creatinine, Serum 1.09 mg/dL (0.55-1.02); EST Glomerular Filtration Rate 52 mL/min (>60); Est Glom Filt Rate - Afr Amer 63 mL/min (>60); Estimated Creatinine Clearance 38.89 ml/min; Glucose 94 mg/dL (74-106); Potassium 3.8 mmol/L (3.5-5.1); Sodium Level 143 mmol/L (136-145)
[2023-07-12 08:32] VITALS: O2SAT 95
[2023-07-12 10:00] VITALS: BP 142/71; PULSE 70; RESP 18; TEMP 36.2; O2SAT 97
[2023-07-12 10:14] VITALS: BP 129/56; PULSE 72; RESP 16; TEMP 36.8; O2SAT 98
[2023-07-12] MEDS: Petrolatum 33% Tube 1 APPLIC TOPICAL (10:15)
[2023-07-12 10:16] VITALS: BP 129/56; PULSE 72
[2023-07-12] MEDS: Metoprolol Tartrate 25 MG Tablet PO (10:16)
[2023-07-12] MEDS: amLODIPine 10 MG Tablet PO (10:16)
[2023-07-12] MEDS: Ferrous Gluconate 324 MG Tablet PO (10:16)
[2023-07-12] MEDS: Losartan Potassium 50 MG Tablet PO (10:17)
[2023-07-12] MEDS: Pantoprazole Sodium 40 MG in 0.9% Normal Saline (100mL MB+) 100 ML 330 MG IV (10:17)
--- NOTE | 2023-07-12 12:30 | TREXTCAR_ITS ---
Diet Diet Order/Speech Therapy: 07/12/23 10:06 Diet: Regular - General Food consistency:: Mechanical (Minced/Moist) Liquid Consistency:: [place]/Mildly Thick Type of Dietary Supplement:: Ensure Plus High Protein Is pt able to select menu?: No Diet Comments: 1:1 Direct sup, nectarby tsp only,120mL ensure plus high pr otein BID w/ B&D Routine Orders/Code Status Enema Type: [place] Enema Frequency: Daily PRN Suppository Frequency: Daily PRN O2 Frequency: PRN Keep PO Greater than or Equal to (%): 92 Routine Lab Work: CBC (5 days) and BMP (5 days) Code Status: Full Code Therapies Physical Therapy: Eval and Treat Occupational Therapy: Eval and Treat Speech Therapy: Eval and Treat Problem/Diagnosis (1) Aspiration pneumonia: Status: Acute Code(s): J69.0 - Pneumonitis due to inhalation of food and vomit (2) Bilateral hydronephrosis: Status: Acute Code(s): N13.30 - Unspecified hydronephrosis (3) MIKE (acute kidney injury): Status: Acute Code(s): N17.9 - Acute kidney failure, unspecified Plan #Probable Aspiration pneumonia * antibiotics narrowed down to unasyn. To switch to PO augmentin at discharge * blood cultures show no growth * CXR was unremarkable * speech therapy on board. modified barium swallow showed moderate to severe oropharyngeal dysphagia. On mechanical soft textures and honey thick liquids. * on 2L of oxygen. Titrate oxygen to maintain sats >90% * per ID, to continue unasyn till 07/12/2023. * * #Acute encephalopathy * etiology is unclear. on IV unasyn due to aspiration pneumonia * modified barium swallow as above. On mechanical soft textured with honey thick liquid diet. * has had 2 sets of blood cultures which are negative. She is on IV unasyn and ID is on board * her mentation has improved a bit today, and though she is weak, she is able to communicate. * she had a CT of the brain July 05 which showed no acute intracranial pathology * Hydrated with IV fluids normal saline and monitor for now. Check ammonia level * patieint a bit more alert today, though she is still lethargic. Likely due to her debility and aspiration pneumonia * #Dysphagia: barium swallow results as above. On mechanical soft textures and honey thick liquids. #Afib * in normal sinus rhythm now * rate controlled * on PO metoprolol 25mg bid * has no history of afib. * 2D echo showed EF of 60% and normal LV systolic function as well as mildly enlarged left atrium (07/01/2023) * heparin drip stopped due to anemia * Patient is high risk for bleeding due to anemia, history of subarachnoid hemorrhage, general weakness and debility as well as high risk of falls. * will therefore hold off on anticoagulation. #Bilateral hydronephrosis * as per CT abdomen and pelvis. Renal USG showed no evidence of obstruction * Cortés catheter in situ * #MIKE on CKD IIIB * losartan and lasix on hold * resolved * #Anemia: * She had EGD which showed normal esophagus and gastritis. * Hemoglobin today 7.2. * Discussed with gastroenterology. Due to patient's frail state, he will defer colonoscopy for outpatient basis. Per Gastroenterology, he spoke to patient it does not appear that she really wants a colonoscopy also. To follow-up with gastroenterology on outpatient basis for decision about colonoscopy. * * #Hypernatremia: resolved. Sodium is down to 145 today #Pancytopenia: Improving. WBC is up to 3.1 today. Hemoglobin is 7.2 and platelets at 110 today. Will continue mointoring #Generalised weakness and debility * PT.OT On board. Fall precautions * #strep dysagalactiae bacteremia * 2 out of 2 blood cultures positive * repeat blood cultures negative so far * 2D echo showed EF of 60% with no vegetations and normal LV function, as well as moderate aortic stenosis * ID on board * On iV unasyn. Per ID, to continue IV unasyn till 07/12/2023 * * #Moderate aortic valve stenosis * as per 2D echo * to follow up with cardiology on outpatient basis * #Dementia * also had encephalopathy on admission, thought to be toxic vs metabolic encephalopathy * CT of the brain were unremarkable * improving * PT.OT on board. Will monitor * #Hypothyroidism: TSH WNL. Synthroid stopped as she had not been taking it at home #Hypertension: BP meds resumed and she is now on oral diet. #History of subarachnoid hemorrhage: s/p coiling. Stable #Seizure disorder: on vimpat 200mg bid PO. #History of uterine cancer: stable. S/p hysterectomy; cervix is still intact DVT prophylaxis: SCDs. Disposition: precert obtained. TO dc to SNF on Thursday, after she completes course of IV antibiotics Allergies/Procedures Done in Hospital Allergies No Known Allergies Allergy (Verified 03/10/15 21:30) Procedures: EGD Type of Care/Length of Stay Estimated LOS: Convalescent Care Less Than 30 days Type of Care Needed: Skilled Rehab Potential: Fair Prognosis: Fair Additional Orders/Day of Discharge Day of Discharge: 07/03/23 Dietary and Speech Recommendations Dietitian Recommendations/Changes: Continue Cardiac diet to manage medical consitions. Continue 120 mL ensure plus high protein 4x/day w/ medpass for increased nut rition if consumed. Discharge Plan Admission Admit Date/Time: 06/30/23 16:13 Primary Reason for Your Visit: Generalized weakness/Debility Attending Provider: Missy Staley Primary Care Provider: Zeina Schmidt Consulting Providers: Leatha Jerry; Nir Lamas Instructions Additional Instructions / Restrictions: 1. Will need repeat CBC once treatment for infection is completed to reassess pancytopenia and if still pancytopenic will need hematology follow up. 2. Should be evaluated by a dental specialist after discharge as I suspect the bacteremia is from an oral/dental source Discharge Orders/Prescriptions Prescriptions: New sennosides-docusate sodium [Stool Softener-Stimulant Laxat] 8.6-50 mg Tablet 2 tab PO BID PRN PRN (Reason: Constipation) Qty: 0 0RF amlodipine 10 mg Tablet 10 mg PO DAILY Qty: 0 0RF lacosamide [Vimpat] 100 mg Tablet 200 mg PO BID Qty: 0 0RF Petrolatum 33% [Eucerin Eqivalent] 1 applic topical BID Qty: 0 0RF Continued potassium chloride 10 mEq capsule, extended release 10 meq PO BID Patient Comments: TAKE 1 CAPSULE BY MOUTH TWICE DAILY furosemide 20 mg tablet 20 mg PO DAILY Patient Comments: TAKE 1 TABLET BY MOUTH ONCE DAILY ferrous gluconate 324 mg (37.5 mg iron) tablet 324 mg PO DAILY Patient Comments: TAKE 1 TABLET BY MOUTH ONCE DAILY WITH BREAKFAST oxybutynin chloride 5 mg tablet extended release 24hr 5 mg PO DAILY Patient Comments: TAKE 1 TABLET BY MOUTH ONCE DAILY losartan 50 mg tablet 50 mg PO DAILY Patient Comments: TAKE 1 TABLET BY MOUTH ONCE DAILY atorvastatin 40 mg tablet 40 mg PO DAILY Patient Comments: TAKE 1 TABLET BY MOUTH ONCE DAILY AT BEDTIME Discontinued amlodipine 5 mg tablet 5 mg PO DAILY Patient Comments: TAKE 1 TABLET BY MOUTH ONCE DAILY Referrals / Follow Up: Zeina Schmidt MD [Primary Care Provider] - Within 1 Month Care Physician,No Primary [Non-Staff] - Friend,DO Melvin [Med Staff - Active Staff] - Within 2 Weeks Disposition Disposition (needs filled in before D/C Order can be placed): [facility] ([facility]) Aspiration pneumonia Qualifiers: Aspiration pneumonia type: unspecified Laterality: unspecified laterality Lung location: unspecified part of lung Qualified Code(s): J69.0 - Pneumonitis due to inhalation of food and vomit
--- NOTE | 2023-07-12 12:32 | DS.PCM_ITS ---
Providers Date of Admission: 06/30/23 Date of Discharge: 07/12/23 Primary Care Physician: Dr. Zeina Schmidt MD Consultations 07/02/23 08:03 Consult: Infectious Disease Routine Consulting Provider: Nir Lamas Reason for Consult: Strep bacteremia-suspect oral source EMERGENT Consult: No Notified: Yes Date Notified: 07/02/23 Time Notified: 08:03 Method of Notification: Text 07/07/23 08:34 Consult: Gastroenterology Routine Consulting Provider: [facility] Reason for Consult: acute on chronic anemia EMERGENT Consult: No Notified: Yes Date Notified: 07/07/23 Time Notified: 08:35 Method of Notification: Text Reason For Visit: UTI/GENERALIZED WEAKNESS Diagnosis Discharge Diagnosis (1) Aspiration pneumonia: Status: Acute Code(s): J69.0 - Pneumonitis due to inhalation of food and vomit Qualifiers: Aspiration pneumonia type: unspecified Laterality: unspecified laterality Lung location: unspecified part of lung Qualified Code(s): J69.0 - Pneumonitis due to inhalation of food and vomit (2) Bilateral hydronephrosis: Status: Acute Code(s): N13.30 - Unspecified hydronephrosis (3) MIKE (acute kidney injury): Status: Acute Code(s): N17.9 - Acute kidney failure, unspecified Plan #Probable Aspiration pneumonia * antibiotics narrowed down to unasyn. To switch to PO augmentin at discharge * blood cultures show no growth * CXR was unremarkable * speech therapy on board. modified barium swallow showed moderate to severe oropharyngeal dysphagia. On mechanical soft textures and honey thick liquids. * on 2L of oxygen. Titrate oxygen to maintain sats >90% * per ID, to continue unasyn till 07/12/2023. * * #Acute encephalopathy * etiology is unclear. on IV unasyn due to aspiration pneumonia * modified barium swallow as above. On mechanical soft textured with honey thick liquid diet. * has had 2 sets of blood cultures which are negative. She is on IV unasyn and ID is on board * her mentation has improved a bit today, and though she is weak, she is able to communicate. * she had a CT of the brain July 05 which showed no acute intracranial pathology * Hydrated with IV fluids normal saline and monitor for now. Check ammonia level * patieint a bit more alert today, though she is still lethargic. Likely due to her debility and aspiration pneumonia * #Dysphagia: barium swallow results as above. On mechanical soft textures and honey thick liquids. #Afib * in normal sinus rhythm now * rate controlled * on PO metoprolol 25mg bid * has no history of afib. * 2D echo showed EF of 60% and normal LV systolic function as well as mildly enlarged left atrium (07/01/2023) * heparin drip stopped due to anemia * Patient is high risk for bleeding due to anemia, history of subarachnoid hemorrhage, general weakness and debility as well as high risk of falls. * will therefore hold off on anticoagulation. #Bilateral hydronephrosis * as per CT abdomen and pelvis. Renal USG showed no evidence of obstruction * Cortés catheter in situ * #MIKE on CKD IIIB * losartan and lasix on hold * resolved * #Anemia: * She had EGD which showed normal esophagus and gastritis. * Hemoglobin today 7.2. * Discussed with gastroenterology. Due to patient's frail state, he will defer colonoscopy for outpatient basis. Per Gastroenterology, he spoke to patient it does not appear that she really wants a colonoscopy also. To follow-up with gastroenterology on outpatient basis for decision about colonoscopy. * * #Hypernatremia: resolved. Sodium is down to 145 today #Pancytopenia: Improving. WBC is up to 3.1 today. Hemoglobin is 7.2 and platelets at 110 today. Will continue mointoring #Generalised weakness and debility * PT.OT On board. Fall precautions * #strep dysagalactiae bacteremia * 2 out of 2 blood cultures positive * repeat blood cultures negative so far * 2D echo showed EF of 60% with no vegetations and normal LV function, as well as moderate aortic stenosis * ID on board * On iV unasyn. Per ID, to continue IV unasyn till 07/12/2023 * * #Moderate aortic valve stenosis * as per 2D echo * to follow up with cardiology on outpatient basis * #Dementia * also had encephalopathy on admission, thought to be toxic vs metabolic encephalopathy * CT of the brain were unremarkable * improving * PT.OT on board. Will monitor * #Hypothyroidism: TSH WNL. Synthroid stopped as she had not been taking it at home #Hypertension: BP meds resumed and she is now on oral diet. #History of subarachnoid hemorrhage: s/p coiling. Stable #Seizure disorder: on vimpat 200mg bid PO. #History of uterine cancer: stable. S/p hysterectomy; cervix is still intact DVT prophylaxis: SCDs. Disposition: precert obtained. TO dc to SNF on Thursday, after she completes course of IV antibiotics Medications at Discharge Home Medications atorvastatin 40 mg tablet 40 mg PO DAILY cholesterol 06/30/23 ferrous gluconate 324 mg (37.5 mg iron) tablet 324 mg PO DAILY supplement 06/30/23 furosemide 20 mg tablet 20 mg PO DAILY diuresis 06/30/23 losartan 50 mg tablet 50 mg PO DAILY bp 06/30/23 oxybutynin chloride 5 mg tablet,extended release 24 hr 5 mg PO DAILY overactive bladder 06/30/23 potassium chloride 10 mEq capsule,extended release 10 meq PO BID supple 06/30/23 Petrolatum 33% [Eucerin Eqivalent] 1 applic topical BID ##0 07/03/23 amlodipine 10 mg tablet 10 mg PO DAILY #0 tabs 07/03/23 lacosamide 100 mg tablet (Vimpat) 200 mg (2 x 100 mg) PO BID #0 tabs 07/03/23 sennosides 8.6 mg-docusate sodium 50 mg tablet (Stool Softener-Stimulant Laxative) 2 tab PO BID PRN PRN Constipation #0 tabs 07/03/23 metoprolol tartrate 25 mg tablet 25 mg PO BID #60 tabs 07/12/23 Hospital Course Operations None Procedures EGD Summary of Care Provided Minutes Spent on Discharge: 55 Hospital Course: Patient is a 78-year-old female with a past medical history as outlined which includes weakness and debility. She was admitted through the ED with complaint of weakness and inability to stand after sitting on the toilet. Son had to get her up off the toilet. Family also noted that she was more confused than usual. On admission patient was confused. CBC showed pancytopenia. Urinalysis showed evidence of infection. Chest x-ray was unremarkable and CT of the brain showed no acute intracranial pathology. She was admitted and managed for acute encephalopathy due to UTI as well as acute weakness and debility. She was started on IV ceftriaxone and hydrated with IV fluids. There was also concern for probable aspiration pneumonia as patient was requiring oxygen. Antibiotics were eventually narrowed down to IV Unasyn. Infectious disease was consulted. She was eventually weaned off of oxygen. Speech therapy was consulted on account of dysphagia and she was found to have moderate to severe oropharyngeal dysphagia. She was placed on mechanical soft textures and honey thick liquids. Hospital course was complicated by new onset A-fib. She was initially started on heparin drip but due to anemia this was discontinued. Gastroenterology was consulted and she had EGD which showed normal esophagus and gastritis. Of note CAT scan that showed bilateral hydronephrosis which was thought to be due to urinary retention. He had a Cortés catheter inserted. Renal ultrasound showed no evidence of obstruction. Hospital course was complicated by hyponatremia which resolved with IV fluid D5 water administration. Blood cultures were positive for strep dysgalactiae. 2D echo showed EF of 60% with no vegetations and normal left ventricular function as well as moderate aortic stenosis. ID w as consulted and she had IV Unasyn till 07/12/2023. Patient remained stable and was discharged to senior living facility on [facility]/2023. She was weaned down to room air. She is follow-up with her primary care doctor within 1 to 2 weeks. Of note Cortés catheter was removed and she is follow-up with her primary care doctor within 1 to 2 weeks. She was given a prescription for p.o. metoprolol 25 mg twice daily. Of note she was not anticoagulated due to weakness and history of falls as well as GI bleed. Patient seen and examined prior to discharge. She had no active complaints and had an uneventful night. Review of systems otherwise negative. Labs and vitals reviewed. Home medication reviewed and reconciled. Physical Exam Const alert, oriented x3, no apparent distress and average body habitus; Negative for healthy appearing Constitutional Narrative: frail General Appearance: cooperative Orientation / Consciousness: lethargic Exam Limitations: no limitations HEENT normocephalic, head/scalp atraumatic and hearing grossly normal bilaterally Mouth: oral and palatal mucosa normal Eyes PERRL and EOMs intact bilaterally Eyes Narrative: Conjunctiva are mildly pale bilaterally, no scleral icterus Neck no lymphadenopathy and supple Neck Narrative: Trachea midline with no thyroid enlargement Lymph Lymphatic: no lymphadenopathy noted, no lymphedema noted and lymphedema Resp normal respiratory effort, normal air movement, no retractions, no use of accessory muscles and clear to auscultation bilaterally Resp Narrative: diminished breath sounds bibasally, no wheezes or crackles. on room air. Auscultation: rhonchi; Negative for rales or wheezes Cardio regular rate, regular rhythm, S1 normal heart sound, S2 normal heart sound, no murmurs, no rub, no gallops and no clicks Cardio Narrative: 3-4 out of 6 systolic murmur loudest at right upper sternal border GI normal to inspection, nondistended, normoactive bowel sounds, soft to palpation, non-tender and non-distended Extremity normal to inspection, full ROM, normal capillary refill, no clubbing, cyanosis or edema and no calf tenderness General Extremity: no tenderness to palpation of joints or extremities Skin
--- NOTE | 2023-07-12 12:32 | PCM.DC.SUM ---
Providers Date of Admission: 06/30/23 Date of Discharge: 07/12/23 Primary Care Physician: Dr. Zeina Schmidt MD Consultations 07/02/23 08:03 Consult: Infectious Disease Routine Consulting Provider: Nir Lamas Reason for Consult: Strep bacteremia-suspect oral source EMERGENT Consult: No Notified: Yes Date Notified: 07/02/23 Time Notified: 08:03 Method of Notification: Text 07/07/23 08:34 Consult: Gastroenterology Routine Consulting Provider: [facility] Reason for Consult: acute on chronic anemia EMERGENT Consult: No Notified: Yes Date Notified: 07/07/23 Time Notified: 08:35 Method of Notification: Text Reason For Visit: UTI/GENERALIZED WEAKNESS Diagnosis Discharge Diagnosis (1) Aspiration pneumonia: Status: Acute Code(s): J69.0 - Pneumonitis due to inhalation of food and vomit Qualifiers: Aspiration pneumonia type: unspecified Laterality: unspecified laterality Lung location: unspecified part of lung Qualified Code(s): J69.0 - Pneumonitis due to inhalation of food and vomit (2) Bilateral hydronephrosis: Status: Acute Code(s): N13.30 - Unspecified hydronephrosis (3) MIKE (acute kidney injury): Status: Acute Code(s): N17.9 - Acute kidney failure, unspecified Plan #Probable Aspiration pneumonia antibiotics narrowed down to unasyn. To switch to PO augmentin at discharge blood cultures show no growth CXR was unremarkable speech therapy on board. modified barium swallow showed moderate to severe oropharyngeal dysphagia. On mechanical soft textures and honey thick liquids. on 2L of oxygen. Titrate oxygen to maintain sats >90% per ID, to continue unasyn till 07/12/2023. #Acute encephalopathy etiology is unclear. on IV unasyn due to aspiration pneumonia modified barium swallow as above. On mechanical soft textured with honey thick liquid diet. has had 2 sets of blood cultures which are negative. She is on IV unasyn and ID is on board her mentation has improved a bit today, and though she is weak, she is able to communicate. she had a CT of the brain July 05 which showed no acute intracranial pathology Hydrated with IV fluids normal saline and monitor for now. Check ammonia level patieint a bit more alert today, though she is still lethargic. Likely due to her debility and aspiration pneumonia #Dysphagia: barium swallow results as above. On mechanical soft textures and honey thick liquids. #Afib in normal sinus rhythm now rate controlled on PO metoprolol 25mg bid has no history of afib. 2D echo showed EF of 60% and normal LV systolic function as well as mildly enlarged left atrium (07/01/2023) heparin drip stopped due to anemia Patient is high risk for bleeding due to anemia, history of subarachnoid hemorrhage, general weakness and debility as well as high risk of falls. will therefore hold off on anticoagulation. #Bilateral hydronephrosis as per CT abdomen and pelvis. Renal USG showed no evidence of obstruction Cortés catheter in situ #MIKE on CKD IIIB losartan and lasix on hold resolved #Anemia: She had EGD which showed normal esophagus and gastritis. Hemoglobin today 7.2. Discussed with gastroenterology. Due to patient's frail state, he will defer colonoscopy for outpatient basis. Per Gastroenterology, he spoke to patient it does not appear that she really wants a colonoscopy also. To follow-up with gastroenterology on outpatient basis for decision about colonoscopy. #Hypernatremia: resolved. Sodium is down to 145 today #Pancytopenia: Improving. WBC is up to 3.1 today. Hemoglobin is 7.2 and platelets at 110 today. Will continue mointoring #Generalised weakness and debility PT.OT On board. Fall precautions #strep dysagalactiae bacteremia 2 out of 2 blood cultures positive repeat blood cultures negative so far 2D echo showed EF of 60% with no vegetations and normal LV function, as well as moderate aortic stenosis ID on board On iV unasyn. Per ID, to continue IV unasyn till 07/12/2023 #Moderate aortic valve stenosis as per 2D echo to follow up with cardiology on outpatient basis #Dementia also had encephalopathy on admission, thought to be toxic vs metabolic encephalopathy CT of the brain were unremarkable improving PT.OT on board. Will monitor #Hypothyroidism: TSH WNL. Synthroid stopped as she had not been taking it at home #Hypertension: BP meds resumed and she is now on oral diet. #History of subarachnoid hemorrhage: s/p coiling. Stable #Seizure disorder: on vimpat 200mg bid PO. #History of uterine cancer: stable. S/p hysterectomy; cervix is still intact DVT prophylaxis: SCDs. Disposition: precert obtained. TO dc to SNF on Thursday, after she completes course of IV antibiotics Medications at Discharge Home Medications atorvastatin 40 mg tablet 40 mg PO DAILY cholesterol 06/30/23 ferrous gluconate 324 mg (37.5 mg iron) tablet 324 mg PO DAILY supplement 06/30/23 furosemide 20 mg tablet 20 mg PO DAILY diuresis 06/30/23 losartan 50 mg tablet 50 mg PO DAILY bp 06/30/23 oxybutynin chloride 5 mg tablet,extended release 24 hr 5 mg PO DAILY overactive bladder 06/30/23 potassium chloride 10 mEq capsule,extended release 10 meq PO BID supple 06/30/23 Petrolatum 33% [Eucerin Eqivalent] 1 applic topical BID ##0 07/03/23 amlodipine 10 mg tablet 10 mg PO DAILY #0 tabs 07/03/23 lacosamide 100 mg tablet (Vimpat) 200 mg (2 x 100 mg) PO BID #0 tabs 07/03/23 sennosides 8.6 mg-docusate sodium 50 mg tablet (Stool Softener-Stimulant Laxative) 2 tab PO BID PRN PRN Constipation #0 tabs 07/03/23 metoprolol tartrate 25 mg tablet 25 mg PO BID #60 tabs 07/12/23 Hospital Course Operations None Procedures EGD Summary of Care Provided Minutes Spent on Discharge: 55 Hospital Course: Patient is a 78-year-old female with a past medical history as outlined which includes weakness and debility. She was admitted through the ED with complaint of weakness and inability to stand after sitting on the toilet. Son had to get her up off the toilet. Family also noted that she was more confused than usual. On admission patient was confused. CBC showed pancytopenia. Urinalysis showed evidence of infection. Chest x-ray was unremarkable and CT of the brain showed no acute intracranial pathology. She was admitted and managed for acute encephalopathy due to UTI as well as acute weakness and debility. She was started on IV ceftriaxone and hydrated with IV fluids. There was also concern for probable aspiration pneumonia as patient was requiring oxygen. Antibiotics were eventually narrowed down to IV Unasyn. Infectious disease was consulted. She was eventually weaned off of oxygen. Speech therapy was consulted on account of dysphagia and she was found to have moderate to severe oropharyngeal dysphagia. She was placed on mechanical soft textures and honey thick liquids. Hospital course was complicated by new onset A-fib. She was initially started on heparin drip but due to anemia this was discontinued. Gastroenterology was consulted and she had EGD which showed normal esophagus and gastritis. Of note CAT scan that showed bilateral hydronephrosis which was thought to be due to urinary retention. He had a Cortés catheter inserted. Renal ultrasound showed no evidence of obstruction. Hospital course was complicated by hyponatremia which resolved with IV fluid D5 water administration. Blood cultures were positive for strep dysgalactiae. 2D echo showed EF of 60% with no vegetations and normal left ventricular function as well as moderate aortic stenosis. ID was consulted and she had IV Unasyn till 07/12/2023. Patient remained stable and [facility]. She was weaned down to room air. She is follow-up with her primary care doctor within 1 to 2 weeks. Of note Cortés catheter was removed and she is follow-up with her primary care doctor within 1 to 2 weeks. She was given a prescription for p.o. metoprolol 25 mg twice daily. Of note she was not anticoagulated due to weakness and history of falls as well as GI bleed. Patient seen and examined prior to discharge. She had no active complaints and had an uneventful night. Review of systems otherwise negative. Labs and vitals reviewed. Home medication reviewed and reconciled. Physical Exam Const alert, oriented x3, no apparent distress and average body habitus; Negative for healthy appearing Constitutional Narrative: frail General Appearance: cooperative Orientation / Consciousness: lethargic Exam Limitations: no limitations HEENT normocephalic, head/scalp atraumatic and hearing grossly normal bilaterally Mouth: oral and palatal mucosa normal Eyes PERRL and EOMs intact bilaterally Eyes Narrative: Conjunctiva are mildly pale bilaterally, no scleral icterus Neck no lymphadenopathy and supple Neck Narrative: Trachea midline with no thyroid enlargement Lymph Lymphatic: no lymphadenopathy noted, no lymphedema noted and lymphedema Resp normal respiratory effort, normal air movement, no retractions, no use of accessory muscles and clear to auscultation bilaterally Resp Narrative: diminished breath sounds bibasally, no wheezes or crackles. on room air. Auscultation: rhonchi; Negative for rales or wheezes Cardio regular rate, regular rhythm, S1 normal heart sound, S2 normal heart sound, no murmurs, no rub, no gallops and no clicks Cardio Narrative: 3-4 out of 6 systolic murmur loudest at right upper sternal border GI normal to inspection, nondistended, normoactive bowel sounds, soft to palpation, non-tender and non-distended Extremity normal to inspection, full ROM, normal capillary refill, no clubbing, cyanosis or edema and no calf tenderness General Extremity: no tenderness to palpation of joints or extremities Skin no rashes or lesions noted General Skin Exam: no breakdown and turgor normal Neuro CN's II-XII intact bilaterally, moves all extremities, no focal motor deficits, no sensory deficits noted and deep tendon reflexes 2+ bilaterally Neuro Narrative: lethargic, able to move all extremities, Speech: Negative for speech normal Motor Exam: strength 5/5 throughout and general weakness Psych thought process normal and cooperative Psych Narrative: frail Appearance: appropriate Weight / BMI Weight Weight: 154 lb 12.796 oz Body Mass Index (BMI) 25.7 ABG / Lab / Microbiology Data 07/12/23 07:35 07/12/23 07:35 Laboratory: Laboratory Results - last 24 hr 07/12/23 07:35: WBC 1.6 L, RBC 2.86 L, Hgb 7.2 L, Hct 24.1 L, MCV 84.3, MCH 25.2 L, MCHC 29.9 L, RDW Std Deviation 55.8 H, RDW Coeff of Vahid 18.0 H, Plt Count 101 L, MPV 9.6, Immature Gran % (Auto) 3.800 H, Neut % (Auto) 36.3 L, Lymph % (Auto) 47.8 H, [place] % (Auto) 11.5 H, Eos % (Auto) 0.0, Baso % (Auto) 0.6, Absolute Neuts (auto) 0.6 L, Absolute Lymphs (auto) 0.75 L, Nucleated RBC % 0, Differential Comment , Sodium 143, Potassium 3.8, Chloride 113 H, Carbon Dioxide 25.0, Anion Gap 5, BUN 25 H, Creatinine 1.09 H, Estim Creat Clear Calc 38.89, Est GFR (MDRD) Af Amer 63, Est GFR (MDRD) Non-Af 52 L, BUN/Creatinine Ratio 22.9 H, Glucose 94, Calcium 7.9 L Microbiology: Microbiology 07/05/23 08:37 Blood Culture (Wb) - Right Hand Blood Culture - Final No growth in 5 days. 07/05/23 08:30 Blood Culture (Wb) - Anticubital Right Blood Culture - Final No growth in 5 days. 07/10/23 09:15 Stool Stool Occult Blood (EMPERATRIZ) - Final Occult Blood Positive 07/03/23 06:55 Blood Culture (Wb) - Anticubital Left Blood Culture - Final No growth in 5 days. 07/05/23 09:45 Urine, Catheterized Urine Culture - Final Culture exhibits no growth. 06/30/23 16:43 Blood Culture (Wb) - Anticubital Left Bacteria Detection (PCR) - Final Strep not Strep pneumo 06/30/23 16:43 Blood Culture (Wb) - Anticubital Left Blood Culture - Final Streptococcus dysgalactiae equ 06/30/23 17:04 Blood Culture (Wb) - Anticubital Right Blood Culture - Final No growth in 5 days. 07/05/23 16:45 Stool Stool Occult Blood (EMPERATRIZ) - Final 07/05/23 08:21 Mucosa - Nasopharyngeal Coronavirus COVID-19 PCR - Final 07/05/23 08:21 Mucosa - Nasopharyngeal Respiratory Panel (PCR) - Final 06/30/23 18:43 Urine, Clean Catch Urine Culture - Final Escherichia coli 06/30/23 12:27 Nasal Secretion SARS-CoV-2 & FLU Antigen (Rapid) - Final D/C Instructions Discharge Diet: Low fat / Low cholesterol Discharge Activity: Return to Normal Activity Weight Bearing Status: Weight bearing as tolerated Call your doctor if you observe: Fever of 101 or Higher, Shortness of breath, Dizziness, Swelling in the ankles and Chest pain Meaningful Use Info Meaningful Use Diagnoses (Choose all that apply): None applicable Discharge Plan Admission Admit Date/Time: 06/30/23 16:13 Primary Reason for Your Visit: Generalized weakness/Debility Attending Provider: Missy Staley Primary Care Provider: Zeina Schmidt Consulting Providers: Leatha Jerry; Nir Lamas Instructions Additional Instructions / Restrictions: 1. Will need repeat CBC once treatment for infection is completed to reassess pancytopenia and if still pancytopenic will need hematology follow up. 2. Should be evaluated by a dental specialist after discharge as I suspect the bacteremia is from an oral/dental source Discharge Orders/Prescriptions Prescriptions: New sennosides-docusate sodium [Stool Softener-Stimulant Laxat] 8.6-50 mg Tablet 2 tab PO BID PRN PRN (Reason: Constipation) Qty: 0 0RF amlodipine 10 mg Tablet 10 mg PO DAILY Qty: 0 0RF lacosamide [Vimpat] 100 mg Tablet 200 mg PO BID Qty: 0 0RF Petrolatum 33% [Eucerin Eqivalent] 1 applic topical BID Qty: 0 0RF metoprolol tartrate 25 mg Tablet 25 mg PO BID Qty: 60 2RF Continued potassium chloride 10 mEq capsule, extended release 10 meq PO BID Patient Comments: TAKE 1 CAPSULE BY MOUTH TWICE DAILY furosemide 20 mg tablet 20 mg PO DAILY Patient Comments: TAKE 1 TABLET BY MOUTH ONCE DAILY ferrous gluconate 324 mg (37.5 mg iron) tablet 324 mg PO DAILY Patient Comments: TAKE 1 TABLET BY MOUTH ONCE DAILY WITH BREAKFAST oxybutynin chloride 5 mg tablet extended release 24hr 5 mg PO DAILY Patient Comments: TAKE 1 TABLET BY MOUTH ONCE DAILY losartan 50 mg tablet 50 mg PO DAILY Patient Comments: TAKE 1 TABLET BY MOUTH ONCE DAILY atorvastatin 40 mg tablet 40 mg PO DAILY Patient Comments: TAKE 1 TABLET BY MOUTH ONCE DAILY AT BEDTIME Discontinued amlodipine 5 mg tablet 5 mg PO DAILY Patient Comments: TAKE 1 TABLET BY MOUTH ONCE DAILY Referrals / Follow Up: Zeina Schmidt MD [Primary Care Provider] - Within 1 Month Friend,DO Melvin [Med Staff - Active Staff] - Within 2 Weeks Care Physician,No Primary [Non-Staff] - Disposition Disposition (needs filled in before D/C Order can be placed): [facility] Facility Charges/Coding Visit Charges Inpatient E&M: 72289 Disch Hosp >30min
[2023-07-12 12:38] VITALS: BP 142/71; PULSE 70; RESP 18; TEMP 36.2; O2SAT 97
--- NOTE | 2023-07-12 13:01 | NURSING ---
Report called to nurse Peraza for pt to be d/c to [facility].
--- NOTE | 2023-07-12 14:20 | NURSING ---
Pt's. nidia Renner updated to transport here at this time to take pt to [facility] in [facility].
== END 2023-07-12 14:45 | disposition skilled nursing facility (03) | DRG 689 ==
LOC: ED 16:24 → MS3 16:27 → PCU 07-06 14:15
PROVIDERS: Hospitalist; Internal Medicine Gastroenterology; Admitting Provider Internal Medicine; Emergency Provider Emergency Medicine; PCP Internal Medicine; Visit Provider Student in an Organized Health Care Education/Training Program
PROC: 0DJ08ZZ Inspection of Upper Intestinal Tract, Via Natural or Artificial Opening Endoscopic (ICD-10-PCS; CPT 43235; principal; 2023-07-07 16:25)
DX: N13.6 Pyonephrosis (principal); J69.0 Pneumonitis due to inhalation of food and vomit; G92.8 Other toxic encephalopathy; D61.818 Other pancytopenia; R78.81 Bacteremia; E87.0 Hyperosmolality and hypernatremia; G40.909 Epilepsy, unspecified, not intractable, without status epilepticus; I48.0 Paroxysmal atrial fibrillation; F03.90 Unspecified dementia, unspecified severity, without behavioral disturbance, psychotic disturbance, mood disturbance, and anxiety; N18.32 Chronic kidney disease, stage 3b; N17.9 Acute kidney failure, unspecified; I12.9 Hypertensive chronic kidney disease with stage 1 through stage 4 chronic kidney disease, or unspecified chronic kidney disease; E03.9 Hypothyroidism, unspecified; I35.0 Nonrheumatic aortic (valve) stenosis; D50.9 Iron deficiency anemia, unspecified; K29.50 Unspecified chronic gastritis without bleeding; I25.2 Old myocardial infarction; E78.5 Hyperlipidemia, unspecified; K59.00 Constipation, unspecified; B95.4 Other streptococcus as the cause of diseases classified elsewhere; B96.20 Unspecified Escherichia coli [E. coli] as the cause of diseases classified elsewhere; R13.12 Dysphagia, oropharyngeal phase; R32 Unspecified urinary incontinence; Z63.4 Disappearance and death of family member; Z91.148 Patient's other noncompliance with medication regimen for other reason; Z90.710 Acquired absence of both cervix and uterus; Z79.899 Other long term (current) drug therapy; Z86.79 Personal history of other diseases of the circulatory system; Z85.42 Personal history of malignant neoplasm of other parts of uterus; Z87.891 Personal history of nicotine dependence
CPT/HCPCS: 36415; 36600; 70450; 71045; 74176; 74230; 76770; 80048; 80053; 81001; 82140; 82274; 82728; 82803; 83540; 83550; 83735; 84100; 84443; 85014; 85018; 85025; 85045; 85610; 85730; 86850; 86900; 86901; 86920; 86922; 87040; 87077; 87086; 87088; 87149; 87186; 87428; 87633; 87635; 87641; 88305; 88342; 92507; 92526; 92610; 92611; 93005; 93306; 94668; 94762; 97110; 97162; 97166; 97530; 97535; 97802; 99252; 99285; J7030; J7040; J7050; J7120; P9040; A4216; C9254; G0463; J0295; J0696; J2405; J3490